=== PATIENT | male | born 1950 | race Caucasian/White ===

== ENCOUNTER 2017-05-18 09:30 | Inpatient (IN) | payer MEDICARE, BC ==
[2017-05-13 13:51] LABS: BASOPHILS # (AUTO) 0.1 X10'3 (0-0.2); BASOPHILS % (AUTO) 0.7 % (0-1); EOSINOPHILS # (AUTO) 0.2 X10'3 (0-0.9); EOSINOPHILS % (AUTO) 2.1 % (0-6); LYMPHOCYTES # (AUTO) 1.8 X10'3 (1.1-4.8); LYMPHOCYTES % (AUTO) 24.9 % (21-51); MEAN CORPUSCULAR HEMOGLOBIN 31.9 PG (27.0-31.0); MEAN CORPUSCULAR HGB CONC 34.8 % (33.0-36.5); MEAN CORPUSCULAR VOLUME 91.6 FL (78-98); MEAN PLATELET VOLUME 7.6 FL (7.4-10.4); MONOCYTES # (AUTO) 0.5 X10'3 (0-0.9); MONOCYTES % (AUTO) 6.3 % (2-12); NEUTROPHILS # (AUTO) 4.8 X10'3 (1.8-7.7); PRE OP HEMOGLOBIN 16.4 g/dL (14.0-17.9); PRE OP PLATELET COUNT 203 X10'3 (140-440); RED BLOOD COUNT 5.14 X10'6 (4.70-6.10); RED CELL DISTRIBUTION WIDTH 12.8 % (11.5-14.5)
[2017-05-13 13:55] LABS: CLARITY,URINE CLEAR (Clear); COLOR,URINE STRAW (Yellow); GLUCOSE, URINE NEGATIVE (Neg); KETONES,URINE NEGATIVE (Neg); LEUKOCYTE ESTERASE ,URINE NEGATIVE (Neg); NITRITES, URINE NEGATIVE (Neg); OCCULT BLOOD,URINE NEGATIVE (Neg); PH,URINE 5.5 (4.8-8.0); PROTEIN,URINE NEGATIVE (Neg); UROBILINOGEN,URINE 0.2 E.U/dL (0.2-1.0)
[2017-05-13 13:56] LABS: UA COLLECTION TYPE NON-SPECIFIED
[2017-05-13 14:04] LABS: ALBUMIN 3.7 G/DL (3.4-5.0); ALKALINE PHOSPHATASE 72 IU/L (46-116); BLOOD UREA NITROGEN 14 MG/DL (7-18); BUN/CREATININE RATIO 13.2 (5.4-32.0); CALCIUM 9.2 MG/DL (8.5-10.1); CHLORIDE 105 MMOL/L (99-107); CREATININE 1.06 MG/DL (0.60-1.10); PRE OP ALT 47 U/L (30-65); PRE OP ANION GAP 6 (8-16); PRE OP AST 22 U/L (10-37); PRE OP BILIRUB, TOTAL 0.3 MG/DL (0.0-1.0); PRE OP GLUCOSE 127 MG/DL (70-104); PRE OP POTASSIUM 4.2 MMOL/L (3.4-5.1); PRE OP SODIUM 140 MMOL/L (135-145); TOTAL CARBON DIOXIDE 29.1 MMOL/L (24-32); TOTAL PROTEIN 7.4 G/DL (6.4-8.2); eGFR 70 ML/MIN
[~2017-05-18] VITALS: Ht 182.9 cm; Wt 128.9 kg
[2017-05-18] VITALS (18 sets, daily range): BP systolic 120–156; BP diastolic 52–87
[~2017-05-18 09:30] MED LIST: BUPR150T8 PO; DOXA4TAB3 PO; FINA5TAB11 PO; FLUT16SP2 BOTHNARES; MELO15TA13 PO; OMEP20TA5 PO; ceFOXitin 2 GM ADDvantage bag 100 ML IV ONE; famotidine 20mg tablet PO ONE; ringers solution, lacted 1,000 ML IV SCH
[2017-05-18] MEDS ORDERED: LIDOcaine 1% (10mg/ml) 2ml vial ONE (11:33)
[2017-05-18] MEDS ORDERED: BUPIVAcaine/PF 2.5 mg/ml (0.25%) 30ml vial ONE (14:36)
[2017-05-18] MEDS ORDERED: ceFAZolin 1000mg inj ONE (14:36)
[2017-05-18] MEDS ORDERED: midazolam 2 mg/2 ml injection ONE (14:40)
[2017-05-18] MEDS ORDERED: fentaNYL/PF 50MCG/1 ML 2ML syringe ONE ×2 (14:40→15:20)
[2017-05-18] MEDS ORDERED: rocuronium 10mg/ml inj IV ONE (14:42)
[2017-05-18] MEDS ORDERED: LIDOcaine 2% (20mg/ml) 5ml vial ONE (14:42)
[2017-05-18] MEDS ORDERED: propofol inj 20 ML IV ONE (14:42)
[2017-05-18] MEDS ORDERED: sevoflurane 250ml liquid IH ONE (15:03)
[2017-05-18] MEDS ORDERED: dexamethasone sod phosphate 4mg/ml inj. ONE (17:03)
[2017-05-18] MEDS ORDERED: neostigmine methylsulfate 1 MG/ML 10ml vial ONE (17:03)
[2017-05-18] MEDS ORDERED: glycopyrrolate 0.2mg/ml inj ONE (17:03)
[2017-05-18] MEDS ORDERED: ondansetron/PF 4mg/2ml inj ONE (17:03)
[2017-05-18] MEDS ORDERED: meperidine/PF 50mg/ml syringe ONE (17:05)
[2017-05-18] MEDS ORDERED: ringers solution, lacted 1,000 ML IV SCH (17:26)
[2017-05-18] MEDS ORDERED: proCHLORperazine 10 MG/2 ml inj IV PRN (17:30)
[2017-05-18] MEDS ORDERED: morphine sulfate 8 MG/ML SYRINGE IV PRN ×2 (17:30)
[2017-05-18] MEDS ORDERED: ondansetron/PF 4mg/2ml inj IV PRN (17:30)
[2017-05-18] MEDS ORDERED: meperidine/PF 25mg/ml syringe IV PRN ×3 (17:30)
[2017-05-18] MEDS ORDERED: CADD PCA waste documentation MC PRN (17:40)
[2017-05-18] MEDS ORDERED: naloxone 0.4 mg/ml inj IV PRN (17:40)
[2017-05-18] MEDS: HYDROmorphone/NS 1 mg/ml CADD 50 ML IV SCH ×4 (18:05→23:00)
[2017-05-18] MEDS: Potassium Cl inj 20 MEQ in ringers solution, lacted 1,000 ML IV SCH (20:30)
[2017-05-19] VITALS: BP 132/71
[2017-05-19] MEDS ORDERED: ceFOXitin 1 GM ADDVANTAGE BAG 1,000 MG in normal saline 100ml IV soln 100 ML IV SCH ×2
[2017-05-19] MEDS: HYDROmorphone/NS 1 mg/ml CADD 50 ML IV SCH ×12 (01:00→23:00)
[2017-05-19] MEDS: Potassium Cl inj 20 MEQ in ringers solution, lacted 1,000 ML IV SCH ×4 (01:44→20:36)
[2017-05-19 04:00] VITALS: BP 119/70
[2017-05-19 06:27] LABS: BASOPHILS % (AUTO) 0 % (0-1); EOSINOPHILS # (AUTO) 0.2 X10'3 (0-0.9); EOSINOPHILS % (AUTO) 1.2 % (0-6); HEMATOCRIT 46.4 % (42.0-52.0); HEMOGLOBIN 15.7 g/dl (14.0-17.9); LYMPHOCYTES # (AUTO) 0.5 X10'3 (1.1-4.8); LYMPHOCYTES % (AUTO) 2.9 % (21-51); MEAN CORPUSCULAR HEMOGLOBIN 32.3 PG (27.0-31.0); MEAN CORPUSCULAR HGB CONC 33.8 % (33.0-36.5); MEAN CORPUSCULAR VOLUME 95.4 FL (78-98); MEAN PLATELET VOLUME 8.2 FL (7.4-10.4); MONOCYTES # (AUTO) 0.6 X10'3 (0-0.9); MONOCYTES % (AUTO) 3.6 % (2-12); NEUTROPHILS # (AUTO) 16.5 X10'3 (1.8-7.7); NEUTROPHILS % (AUTO) 92.3 % (42-75); PLATELET COUNT 185 X10'3 (140-440); RED BLOOD COUNT 4.87 X10'6 (4.70-6.10); RED CELL DISTRIBUTION WIDTH 13.7 % (11.5-14.5); WHITE BLOOD COUNT 17.9 X10'3 (4.5-11.0)
[2017-05-19 06:32] LABS: ANION GAP 8 (8-16); BLOOD UREA NITROGEN 9 MG/DL (7-18); BUN/CREATININE RATIO 8.5 (5.4-32.0); CALCIUM 8.8 MG/DL (8.5-10.1); CHLORIDE 103 MMOL/L (99-107); CREATININE 1.06 MG/DL (0.60-1.10); GLUCOSE 136 MG/DL (70-104); POTASSIUM 4.6 MMOL/L (3.5-5.1); SODIUM 139 MMOL/L (135-145); TOTAL CARBON DIOXIDE 28.1 MMOL/L (24-32); eGFR 70 ML/MIN
[2017-05-19 07:11] VITALS: BP 119/66
[2017-05-19] MEDS: enoxaparin 40mg/0.4ml syringe SQ SCH (08:00)
[2017-05-19] MEDS ORDERED: pantoprazole 40mg Tablet.DR PO ONE (15:20)
[2017-05-19] MEDS ORDERED: benzocaine/menthol oral lozeng 1 EACH BOX MM PRN (15:20)
[2017-05-19] MEDS: finasteride 5mg tablet PO SCH (16:02)
[2017-05-19] MEDS: naproxen 500mg tablet PO SCH (17:51)
[2017-05-19] MEDS ORDERED: Chloraseptic (Phenol) Spray 177ml MM PRN (18:20)
[2017-05-19 20:00] VITALS: BP 112/68
[2017-05-19] MEDS: buPROPion SR 150mg tablet PO SCH (20:35)
[2017-05-20] VITALS: BP 119/70
[2017-05-20] MEDS: HYDROmorphone/NS 1 mg/ml CADD 50 ML IV SCH ×12 (01:00→23:00)
[2017-05-20 05:17] LABS: BASOPHILS % (AUTO) 0.2 % (0-1); EOSINOPHILS # (AUTO) 0.1 X10'3 (0-0.9); EOSINOPHILS % (AUTO) 1.3 % (0-6); HEMATOCRIT 42.8 % (42.0-52.0); HEMOGLOBIN 14.5 g/dl (14.0-17.9); LYMPHOCYTES # (AUTO) 1.7 X10'3 (1.1-4.8); LYMPHOCYTES % (AUTO) 15.2 % (21-51); MEAN CORPUSCULAR HEMOGLOBIN 32.4 PG (27.0-31.0); MEAN CORPUSCULAR HGB CONC 33.9 % (33.0-36.5); MEAN CORPUSCULAR VOLUME 95.7 FL (78-98); MEAN PLATELET VOLUME 8.1 FL (7.4-10.4); MONOCYTES # (AUTO) 0.6 X10'3 (0-0.9); MONOCYTES % (AUTO) 5.2 % (2-12); NEUTROPHILS # (AUTO) 8.8 X10'3 (1.8-7.7); NEUTROPHILS % (AUTO) 78.1 % (42-75); PLATELET COUNT 157 X10'3 (140-440); RED BLOOD COUNT 4.48 X10'6 (4.70-6.10); RED CELL DISTRIBUTION WIDTH 13.4 % (11.5-14.5); WHITE BLOOD COUNT 11.2 X10'3 (4.5-11.0)
[2017-05-20] MEDS: Potassium Cl inj 20 MEQ in ringers solution, lacted 1,000 ML IV SCH ×2 (05:22→13:47)
[2017-05-20 05:30] LABS: ALBUMIN 2.8 G/DL (3.4-5.0); ANION GAP 1 (8-16); BLOOD UREA NITROGEN 10 MG/DL (7-18); BUN/CREATININE RATIO 9.5 (5.4-32.0); CALCIUM 8.8 MG/DL (8.5-10.1); CHLORIDE 102 MMOL/L (99-107); CREATININE 1.05 MG/DL (0.60-1.10); GLUCOSE 94 MG/DL (70-104); POTASSIUM 4.6 MMOL/L (3.5-5.1); SODIUM 138 MMOL/L (135-145); TOTAL CARBON DIOXIDE 35.2 MMOL/L (24-32); eGFR 70 ML/MIN
[2017-05-20 08:00] VITALS: BP 157/75
[2017-05-20] MEDS: enoxaparin 40mg/0.4ml syringe SQ SCH (08:00)
[2017-05-20] MEDS: buPROPion SR 150mg tablet PO SCH ×2 (10:13→20:07)
[2017-05-20] MEDS: pantoprazole 40mg Tablet.DR PO SCH (10:14)
[2017-05-20] MEDS: finasteride 5mg tablet PO SCH (10:15)
[2017-05-20] MEDS: naproxen 500mg tablet PO SCH ×2 (10:15→18:04)
[2017-05-20] MEDS: doxazosin mesylate 2mg tablet PO SCH (10:15)
[2017-05-20] MEDS: fluticasone nasal spray 16GM bottle NS SCH (10:18)
[2017-05-20 12:09] VITALS: BP 141/79
[2017-05-20 20:00] VITALS: BP 125/73
[2017-05-21] VITALS: BP 132/74
[2017-05-21] MEDS: HYDROmorphone/NS 1 mg/ml CADD 50 ML IV SCH ×12 (01:00→23:00)
[2017-05-21] MEDS: Potassium Cl inj 20 MEQ in ringers solution, lacted 1,000 ML IV SCH ×3 (02:14→15:34)
[2017-05-21 05:16] LABS: BASOPHILS % (AUTO) 0.1 % (0-1); EOSINOPHILS # (AUTO) 0.3 X10'3 (0-0.9); EOSINOPHILS % (AUTO) 2.7 % (0-6); HEMOGLOBIN 14.9 g/dl (14.0-17.9); LYMPHOCYTES # (AUTO) 1.2 X10'3 (1.1-4.8); LYMPHOCYTES % (AUTO) 11.9 % (21-51); MEAN CORPUSCULAR HEMOGLOBIN 32.6 PG (27.0-31.0); MEAN CORPUSCULAR VOLUME 96.1 FL (78-98); MEAN PLATELET VOLUME 8.3 FL (7.4-10.4); MONOCYTES # (AUTO) 0.6 X10'3 (0-0.9); MONOCYTES % (AUTO) 5.7 % (2-12); NEUTROPHILS # (AUTO) 7.8 X10'3 (1.8-7.7); NEUTROPHILS % (AUTO) 79.6 % (42-75); PLATELET COUNT 169 X10'3 (140-440); RED BLOOD COUNT 4.58 X10'6 (4.70-6.10); RED CELL DISTRIBUTION WIDTH 13.4 % (11.5-14.5); WHITE BLOOD COUNT 9.8 X10'3 (4.5-11.0)
[2017-05-21 05:43] LABS: CHLORIDE 99 MMOL/L (99-107); GLUCOSE 87 MG/DL (70-104); POTASSIUM 4.2 MMOL/L (3.5-5.1); SODIUM 138 MMOL/L (135-145); TOTAL CARBON DIOXIDE 33.3 MMOL/L (24-32)
[2017-05-21 05:44] LABS: ALBUMIN 3.2 G/DL (3.4-5.0); ANION GAP 6 (8-16); BLOOD UREA NITROGEN 10 MG/DL (7-18); BUN/CREATININE RATIO 10.2 (5.4-32.0); CALCIUM 9.3 MG/DL (8.5-10.1); CREATININE 0.98 MG/DL (0.60-1.10); eGFR 76 ML/MIN
[2017-05-21 07:47] VITALS: BP 145/80
[2017-05-21] MEDS: enoxaparin 40mg/0.4ml syringe SQ SCH (08:00)
[2017-05-21] MEDS: fluticasone nasal spray 16GM bottle NS SCH (08:00)
[2017-05-21] MEDS: buPROPion SR 150mg tablet PO SCH ×2 (08:59→20:00)
[2017-05-21] MEDS: naproxen 500mg tablet PO SCH ×2 (08:59→18:44)
[2017-05-21] MEDS: finasteride 5mg tablet PO SCH (09:00)
[2017-05-21] MEDS: doxazosin mesylate 2mg tablet PO SCH (09:00)
[2017-05-21] MEDS: pantoprazole 40mg Tablet.DR PO SCH (09:00)
[2017-05-21 12:34] VITALS: BP 150/74
[2017-05-21 19:00] VITALS: BP 124/71
[2017-05-22] VITALS: BP 145/76
[2017-05-22] MEDS: HYDROmorphone/NS 1 mg/ml CADD 50 ML IV SCH ×12 (01:00→23:00)
[2017-05-22] MEDS: ondansetron/PF 4mg/2ml inj IV PRN (01:55)
[2017-05-22] MEDS: Potassium Cl inj 20 MEQ in ringers solution, lacted 1,000 ML IV SCH ×3 (01:55→19:33)
[2017-05-22] MEDS: fluticasone nasal spray 16GM bottle NS SCH (07:53)
[2017-05-22] MEDS: pantoprazole 40mg Tablet.DR PO SCH (07:53)
[2017-05-22] MEDS: doxazosin mesylate 2mg tablet PO SCH (07:54)
[2017-05-22] MEDS: finasteride 5mg tablet PO SCH (07:54)
[2017-05-22] MEDS: naproxen 500mg tablet PO SCH ×2 (07:54→17:43)
[2017-05-22] MEDS: buPROPion SR 150mg tablet PO SCH ×2 (07:54→20:18)
[2017-05-22] MEDS: enoxaparin 40mg/0.4ml syringe SQ SCH (07:56)
[2017-05-22 08:10] VITALS: BP 141/77
[2017-05-22 08:24] LABS: BASOPHILS % (AUTO) 0 % (0-1); EOSINOPHILS # (AUTO) 0.1 X10'3 (0-0.9); EOSINOPHILS % (AUTO) 0.9 % (0-6); HEMATOCRIT 43.4 % (42.0-52.0); HEMOGLOBIN 15.2 g/dl (14.0-17.9); LYMPHOCYTES # (AUTO) 0.4 X10'3 (1.1-4.8); LYMPHOCYTES % (AUTO) 3.2 % (21-51); MEAN CORPUSCULAR HEMOGLOBIN 33.4 PG (27.0-31.0); MEAN CORPUSCULAR VOLUME 95.4 FL (78-98); MEAN PLATELET VOLUME 8.1 FL (7.4-10.4); MONOCYTES # (AUTO) 0.4 X10'3 (0-0.9); MONOCYTES % (AUTO) 2.9 % (2-12); NEUTROPHILS # (AUTO) 12.9 X10'3 (1.8-7.7); PLATELET COUNT 159 X10'3 (140-440); RED BLOOD COUNT 4.55 X10'6 (4.70-6.10); RED CELL DISTRIBUTION WIDTH 12.9 % (11.5-14.5); WHITE BLOOD COUNT 13.9 X10'3 (4.5-11.0)
[2017-05-22 08:29] LABS: ALANINE AMINOTRANSFERASE 20 U/L (12-78); ALBUMIN 2.6 G/DL (3.4-5.0); ALBUMIN/GLOBULIN RATIO 0.7 (1.1-1.5); ALKALINE PHOSPHATASE 55 IU/L (46-116); ANION GAP 11 (8-16); ASPARTATE AMINO TRANSFERASE 22 U/L (10-37); BILIRUBIN,TOTAL 1.3 MG/DL (0.1-1.0); BLOOD UREA NITROGEN 11 MG/DL (7-18); BUN/CREATININE RATIO 13.6 (5.4-32.0); CALCIUM 8.8 MG/DL (8.5-10.1); CHLORIDE 97 MMOL/L (99-107); CREATININE 0.81 MG/DL (0.60-1.10); GLUCOSE 106 MG/DL (70-104); SODIUM 134 MMOL/L (135-145); TOTAL CARBON DIOXIDE 25.6 MMOL/L (24-32); TOTAL PROTEIN 6.5 G/DL (6.4-8.2); eGFR > 90 ML/MIN
[2017-05-22 11:00] VITALS: BP 134/79
[2017-05-22 18:50] VITALS: BP 143/74
[2017-05-23] VITALS: BP 142/67
[2017-05-23] MEDS: HYDROmorphone/NS 1 mg/ml CADD 50 ML IV SCH ×12 (00:55→23:00)
[2017-05-23] MEDS: Potassium Cl inj 20 MEQ in ringers solution, lacted 1,000 ML IV SCH ×3 (02:44→21:24)
[2017-05-23 06:59] LABS: BASOPHILS % (AUTO) 0 % (0-1); EOSINOPHILS % (AUTO) 0 % (0-6); HEMATOCRIT 39.7 % (42.0-52.0); HEMOGLOBIN 13.5 g/dl (14.0-17.9); LYMPHOCYTES # (AUTO) 0.3 X10'3 (1.1-4.8); LYMPHOCYTES % (AUTO) 2.3 % (21-51); MEAN CORPUSCULAR HEMOGLOBIN 32.7 PG (27.0-31.0); MEAN CORPUSCULAR VOLUME 96.1 FL (78-98); MEAN PLATELET VOLUME 7.5 FL (7.4-10.4); MONOCYTES # (AUTO) 0.7 X10'3 (0-0.9); MONOCYTES % (AUTO) 4.5 % (2-12); NEUTROPHILS # (AUTO) 13.6 X10'3 (1.8-7.7); NEUTROPHILS % (AUTO) 93.2 % (42-75); PLATELET COUNT 166 X10'3 (140-440); RED BLOOD COUNT 4.13 X10'6 (4.70-6.10); RED CELL DISTRIBUTION WIDTH 13.1 % (11.5-14.5); WHITE BLOOD COUNT 14.6 X10'3 (4.5-11.0)
[2017-05-23 07:00] VITALS: BP 138/71
[2017-05-23 07:09] LABS: ALBUMIN 2.3 G/DL (3.4-5.0); ANION GAP 8 (8-16); BLOOD UREA NITROGEN 13 MG/DL (7-18); BUN/CREATININE RATIO 15.7 (5.4-32.0); CALCIUM 8.7 MG/DL (8.5-10.1); CHLORIDE 101 MMOL/L (99-107); CREATININE 0.83 MG/DL (0.60-1.10); GLUCOSE 108 MG/DL (70-104); POTASSIUM 4.3 MMOL/L (3.5-5.1); SODIUM 138 MMOL/L (135-145); TOTAL CARBON DIOXIDE 29.4 MMOL/L (24-32); eGFR > 90 ML/MIN
[2017-05-23] MEDS: fluticasone nasal spray 16GM bottle NS SCH (07:41)
[2017-05-23] MEDS: buPROPion SR 150mg tablet PO SCH ×2 (07:42→20:00)
[2017-05-23] MEDS: doxazosin mesylate 2mg tablet PO SCH (07:42)
[2017-05-23] MEDS: naproxen 500mg tablet PO SCH ×2 (07:43→17:20)
[2017-05-23] MEDS: pantoprazole 40mg Tablet.DR PO SCH (07:43)
[2017-05-23] MEDS: enoxaparin 40mg/0.4ml syringe SQ SCH (07:44)
[2017-05-23] MEDS: finasteride 5mg tablet PO SCH (07:46)
[2017-05-23] MEDS: ondansetron/PF 4mg/2ml inj IV PRN (07:46)
[2017-05-23 11:00] VITALS: BP 125/71
[2017-05-23 18:40] VITALS: BP 143/66
[2017-05-24] VITALS (28 sets, daily range): BP systolic 72–114; BP diastolic 48–83
[2017-05-24] MEDS ORDERED: normal saline 1000ml 1,000 ML IVB ONE (00:39)
[2017-05-24] MEDS: HYDROmorphone/NS 1 mg/ml CADD 50 ML IV SCH ×6 (01:00→13:00)
[2017-05-24] MEDS ORDERED: ipratropium 0.5 MG/2.5ML nebule IH PRN ×2 (01:35→02:45)
[2017-05-24] MEDS ORDERED: ipratropium 0.5 MG/2.5ML nebule IH ONE (01:35)
[2017-05-24 01:46] LABS: ABG BASE EXCESS -1.5 mmol/L (-2.0-3.0); ABG HCO3 24.4 mmol/L (22.0-26.0); ABG OXYGEN SATURATION 90.6 % (95-98); ABG PCO2 (T) 45.5 mmHg (35.0-48.0); ABG PH (T) 7.347 (7.350-7.450); ABG PO2 (T) 64.1 mmHg (83-108); ALLEN'S TEST Positive; FCOHb 0.8 % (0.5-1.5); FLOW 4 L/min; FMetHb 0.2 % (0.3-1.12); FO2Hb 89.7 % (94-100); PATIENT TEMPERATURE 36.9; RESPIRATORY RATE (OBSERVED) 24 b/min; TOTAL HEMOGLOBIN 15.6 G/dl (14.0-18.0)
[2017-05-24 01:58] LABS: BASOPHILS % (AUTO) 0.3 % (0-1); EOSINOPHILS % (AUTO) 0.2 % (0-6); HEMATOCRIT 46.6 % (42.0-52.0); HEMOGLOBIN 15.7 g/dl (14.0-17.9); LYMPHOCYTES # (AUTO) 0.2 X10'3 (1.1-4.8); LYMPHOCYTES % (AUTO) 4.4 % (21-51); MEAN CORPUSCULAR HEMOGLOBIN 32.2 PG (27.0-31.0); MEAN CORPUSCULAR HGB CONC 33.6 % (33.0-36.5); MEAN CORPUSCULAR VOLUME 95.7 FL (78-98); MEAN PLATELET VOLUME 7.9 FL (7.4-10.4); MONOCYTES # (AUTO) 0.4 X10'3 (0-0.9); NEUTROPHILS # (AUTO) 4.7 X10'3 (1.8-7.7); NEUTROPHILS % (AUTO) 88.1 % (42-75); PLATELET COUNT 193 X10'3 (140-440); RED BLOOD COUNT 4.87 X10'6 (4.70-6.10); RED CELL DISTRIBUTION WIDTH 12.9 % (11.5-14.5); WHITE BLOOD COUNT 5.3 X10'3 (4.5-11.0)
[2017-05-24 02:02] LABS: PARTIAL THROMBOPLASTIN TIME 28 SECONDS (22-32); PROTHROMBIN TIME 10.8 SECONDS (9.0-12.0)
[2017-05-24 02:14] LABS: ALANINE AMINOTRANSFERASE 22 U/L (12-78); ALBUMIN 2.2 G/DL (3.4-5.0); ALBUMIN/GLOBULIN RATIO 0.5 (1.1-1.5); ALKALINE PHOSPHATASE 79 IU/L (46-116); ANION GAP 8 (8-16); ASPARTATE AMINO TRANSFERASE 19 U/L (10-37); BILIRUBIN,TOTAL 1.9 MG/DL (0.1-1.0); BLOOD UREA NITROGEN 19 MG/DL (7-18); BUN/CREATININE RATIO 11.1 (5.4-32.0); CHLORIDE 103 MMOL/L (99-107); CREATININE 1.71 MG/DL (0.60-1.10); GLUCOSE 90 MG/DL (70-104); MAGNESIUM 1.7 MG/DL (1.5-2.4); POTASSIUM 5.3 MMOL/L (3.5-5.1); SODIUM 141 MMOL/L (135-145); TOTAL CARBON DIOXIDE 30.5 MMOL/L (24-32); TOTAL PROTEIN 6.3 G/DL (6.4-8.2); eGFR 40 ML/MIN
[2017-05-24 02:21] LABS: OXYGEN SATURATION (MIXED VEN) 64.3 % (60-80); PO2 MIXED VENOUS (TEMP COR) 36.5 mmHg (35-46)
[2017-05-24] MEDS: Potassium Cl inj 20 MEQ in ringers solution, lacted 1,000 ML IV SCH ×2 (02:59→11:04)
[2017-05-24] MEDS ORDERED: diatr meglu/diatrizoate 30ml oral sol.-(3 dose) bottle PO SCH ×2 (03:00)
[2017-05-24] MEDS ORDERED: piperacillin/tazo 3.375gm/50ml 50 ML IV SCH (03:20)
[2017-05-24] MEDS: metroNIDAZOLE-Flagyl 500mg/NS 100 ML IV SCH ×3 (03:20→19:21)
[2017-05-24 04:08] LABS: BASOPHILS % (AUTO) 0 % (0-1); EOSINOPHILS % (AUTO) 0.2 % (0-6); HEMATOCRIT 42.6 % (42.0-52.0); HEMOGLOBIN 14.5 g/dl (14.0-17.9); LYMPHOCYTES # (AUTO) 0.3 X10'3 (1.1-4.8); LYMPHOCYTES % (AUTO) 4.3 % (21-51); MEAN CORPUSCULAR HEMOGLOBIN 32.6 PG (27.0-31.0); MEAN CORPUSCULAR VOLUME 96.1 FL (78-98); MEAN PLATELET VOLUME 7.7 FL (7.4-10.4); MONOCYTES # (AUTO) 0.5 X10'3 (0-0.9); MONOCYTES % (AUTO) 6.5 % (2-12); NEUTROPHILS # (AUTO) 6.3 X10'3 (1.8-7.7); PLATELET COUNT 170 X10'3 (140-440); RED BLOOD COUNT 4.44 X10'6 (4.70-6.10); RED CELL DISTRIBUTION WIDTH 13.4 % (11.5-14.5); WHITE BLOOD COUNT 7.1 X10'3 (4.5-11.0)
[2017-05-24 04:32] LABS: PLATELET ESTIMATE NORMAL; TOTAL CELLS COUNTED 100
[2017-05-24 04:41] LABS: PO2 MIXED VENOUS (TEMP COR) 40.1 mmHg (35-46)
[2017-05-24] MEDS ORDERED: ringers solution, lacted 1,000 ML IV SCH (06:38)
[2017-05-24] MEDS ORDERED: morphine sulfate 8 MG/ML SYRINGE IV PRN ×2 (06:40)
[2017-05-24] MEDS ORDERED: proCHLORperazine 10 MG/2 ml inj IV PRN (06:40)
[2017-05-24] MEDS ORDERED: meperidine/PF 25mg/ml syringe IV PRN ×3 (06:40)
[2017-05-24] MEDS ORDERED: ondansetron/PF 4mg/2ml inj IV PRN (06:40)
[2017-05-24] MEDS ORDERED: BUPIVAcaine/PF 2.5 mg/ml (0.25%) 30ml vial ONE (06:43)
[2017-05-24] MEDS ORDERED: ceFAZolin 1000mg inj ONE (06:43)
[2017-05-24] MEDS ORDERED: LIDOcaine 1% (10mg/ml) 2ml vial ONE (06:56)
[2017-05-24] MEDS: naproxen 500mg tablet PO SCH (07:18)
[2017-05-24] MEDS: pantoprazole 40mg Tablet.DR PO SCH (07:18)
[2017-05-24] MEDS ORDERED: furosemide 20 MG/2 ML vial ONE (07:22)
[2017-05-24] MEDS ORDERED: desflurane 240ml liquid inh. IH ONE (07:22)
[2017-05-24] MEDS ORDERED: fentaNYL/PF 50MCG/1 ML 2ML syringe ONE (07:38)
[2017-05-24] MEDS ORDERED: etomidate 2mg/ml inj. ONE (07:38)
[2017-05-24] MEDS ORDERED: midazolam 2 mg/2 ml injection ONE (07:38)
[2017-05-24] MEDS ORDERED: LIDOcaine 1%/PF (10mg/ml) 5ml vial ONE (07:38)
[2017-05-24] MEDS ORDERED: rocuronium 10mg/ml inj IV ONE (07:39)
[2017-05-24] MEDS: finasteride 5mg tablet PO SCH (08:00)
[2017-05-24] MEDS: doxazosin mesylate 2mg tablet PO SCH (08:00)
[2017-05-24] MEDS: buPROPion SR 150mg tablet PO SCH (08:00)
[2017-05-24] MEDS: enoxaparin 40mg/0.4ml syringe SQ SCH (08:00)
[2017-05-24] MEDS: fluticasone nasal spray 16GM bottle NS SCH (08:00)
[2017-05-24] MEDS ORDERED: DOBUTamine/D5W 500mg/250ml premix IV ONE (08:21)
[2017-05-24] MEDS ORDERED: pancuronium br 1mg/ml inj IV ONE (08:32)
[2017-05-24] MEDS ORDERED: levoFLOXACIN-Levaquin 750MG/D5 150 ML IV ONE (08:53)
[2017-05-24] MEDS ORDERED: albumin (Human) 5% 250ml 250 ML IV ONE (09:06)
[2017-05-24 11:10] LABS: ABG BASE EXCESS -4.6 mmol/L (-2.0-3.0); ABG HCO3 20.4 mmol/L (22.0-26.0); ABG OXYGEN SATURATION 95.6 % (95-98); ABG PCO2 (T) 36.2 mmHg (35.0-48.0); ABG PH (T) 7.365 (7.350-7.450); ABG PO2 (T) 76.8 mmHg (83-108); FCOHb 0.5 % (0.5-1.5); FMetHb 0.2 % (0.3-1.12); FO2Hb 94.9 % (94-100); PATIENT TEMPERATURE 36.1; PEEP 5 cm H2O; RESPIRATORY RATE 16 b/min; TIDAL VOLUME 600 mL; TOTAL HEMOGLOBIN 13.6 G/dl (14.0-18.0)
[2017-05-24] MEDS ORDERED: albumin (human) 25% 100 ML IV solution IV PRN ×2 (11:30→16:00)
[2017-05-24] MEDS ORDERED: midazolam 100mg in NS 100ml 100 ML IV PRN (13:32)
[2017-05-24] MEDS: mineral oil/petrolatum ophthal oint EACHEYE SCH ×2 (14:25→19:23)
[2017-05-24] MEDS ORDERED: Dextrose 10%-water IV solution 1,000 ML IV PRN (15:14)
[2017-05-24] MEDS ORDERED: fat emulsion IV 181.82 ML, MVI, adult No.4 with vit. K 4.55 ML, Trace element-5 inj. 0.... IV SCH ×4 (15:14)
[2017-05-24 15:56] LABS: OXYGEN SATURATION (MIXED VEN) 74.3 % (60-80); PO2 MIXED VENOUS (TEMP COR) 39.3 mmHg (35-46)
[2017-05-24] MEDS ORDERED: fat emulsion IV 100 ML, MVI, adult No.4 with vit. K 5 ML, Trace element-5 inj. 0.5 ML i... IV SCH ×4 (16:10)
[2017-05-24] MEDS: fentaNYL/PF 50MCG/1 ML 2ML syringe IV PRN ×3 (16:21→20:01)
[2017-05-24] MEDS: NORepinephrine 8mg/ 250ml NS 250 ML IV SCH (16:44)
[2017-05-24] MEDS ORDERED: lactobacillus rhamnosus 10,000 MMU CELLS/CAPSULE PO SCH (17:30)
[2017-05-24] MEDS: albumin (human) 25% 100 ML IV solution IV PRN (19:09)
[2017-05-24] MEDS: fat emulsion IV 100 ML, MVI, adult No.4 with vit. K 5 ML, Trace element-5 inj. 0.5 ML i... IV SCH ×4 (19:22)
[2017-05-24] MEDS: ipratropium/albuterol 3ml nebule NEB SCH ×2 (19:39→23:03)
[2017-05-25] VITALS (24 sets, daily range): BP systolic 90–138; BP diastolic 50–68
[2017-05-25] MEDS: fentaNYL/PF 50MCG/1 ML 2ML syringe IV PRN ×2 (02:18→08:52)
[2017-05-25] MEDS: mineral oil/petrolatum ophthal oint EACHEYE SCH ×4 (02:18→20:24)
[2017-05-25] MEDS: ipratropium/albuterol 3ml nebule NEB SCH ×6 (02:59→23:10)
[2017-05-25] MEDS: albumin (human) 25% 100 ML IV solution IV PRN (03:23)
[2017-05-25 04:29] LABS: ALANINE AMINOTRANSFERASE 14 U/L (12-78); ALBUMIN/GLOBULIN RATIO 0.7 (1.1-1.5); ALKALINE PHOSPHATASE 37 IU/L (46-116); ANION GAP 6 (8-16); ASPARTATE AMINO TRANSFERASE 32 U/L (10-37); BILIRUBIN,TOTAL 3.3 MG/DL (0.1-1.0); BLOOD UREA NITROGEN 34 MG/DL (7-18); BUN/CREATININE RATIO 17.3 (5.4-32.0); CALCIUM 8.1 MG/DL (8.5-10.1); CHLORIDE 108 MMOL/L (99-107); CREATININE 1.97 MG/DL (0.60-1.10); GLUCOSE 149 MG/DL (70-104); MAGNESIUM 1.7 MG/DL (1.5-2.4); POTASSIUM 4.8 MMOL/L (3.5-5.1); SODIUM 142 MMOL/L (135-145); TOTAL CARBON DIOXIDE 27.8 MMOL/L (24-32); TOTAL PROTEIN 4.8 G/DL (6.4-8.2); TRIGLYCERIDES 62 MG/DL (20-135); eGFR 34 ML/MIN
[2017-05-25 04:44] LABS: BASOPHILS % (AUTO) 0 % (0-1); EOSINOPHILS % (AUTO) 0.1 % (0-6); HEMATOCRIT 38.2 % (42.0-52.0); HEMOGLOBIN 12.9 g/dl (14.0-17.9); LYMPHOCYTES # (AUTO) 0.5 X10'3 (1.1-4.8); LYMPHOCYTES % (AUTO) 3.3 % (21-51); MEAN CORPUSCULAR HEMOGLOBIN 32.8 PG (27.0-31.0); MEAN CORPUSCULAR HGB CONC 33.8 % (33.0-36.5); MEAN CORPUSCULAR VOLUME 97.2 FL (78-98); MEAN PLATELET VOLUME 8.4 FL (7.4-10.4); MONOCYTES # (AUTO) 0.6 X10'3 (0-0.9); NEUTROPHILS # (AUTO) 12.9 X10'3 (1.8-7.7); NEUTROPHILS % (AUTO) 92.6 % (42-75); PLATELET COUNT 172 X10'3 (140-440); RED BLOOD COUNT 3.93 X10'6 (4.70-6.10); RED CELL DISTRIBUTION WIDTH 14.1 % (11.5-14.5)
[2017-05-25 04:46] LABS: ABG BASE EXCESS 0.1 mmol/L (-2.0-3.0); ABG OXYGEN SATURATION 97.3 % (95-98); ABG PCO2 (T) 36.9 mmHg (35.0-48.0); ABG PH (T) 7.433 (7.350-7.450); ABG PO2 (T) 99.9 mmHg (83-108); FMetHb 0.2 % (0.3-1.12); FO2Hb 97.1 % (94-100); MINUTE VOLUME 12 L/min; PATIENT TEMPERATURE 37.3; PEEP 5 cm H2O; RESPIRATORY RATE 16 b/min; RESPIRATORY RATE (OBSERVED) 18 b/min; TIDAL VOLUME 600 mL; TOTAL HEMOGLOBIN 13.1 G/dl (14.0-18.0)
[2017-05-25 05:31] LABS: BANDS% (MANUAL) 33 % (0-10); LYMPHOCYTES % (MANUAL) 1 % (21-51); METAMYLEOCYTES% (MANUAL) 3 % (0-0); MONOCYTES % (MANUAL) 3 % (2-12); NEUTROPHILS % (MANUAL) 60 % (42-75); TOTAL CELLS COUNTED 100
[2017-05-25 05:32] LABS: PLATELET ESTIMATE NORMAL; TOXIC GRANULATION 1+; TOXIC VACUOLATION 1+
[2017-05-25] MEDS: NORepinephrine 8mg/ 250ml NS 250 ML IV SCH (05:42)
[2017-05-25] MEDS: pantoprazole 40mg Tablet.DR PO SCH (07:17)
[2017-05-25] MEDS: levoFLOXACIN-Levaquin 500mg/D5 100 ML IV SCH (07:18)
[2017-05-25] MEDS: doxazosin mesylate 2mg tablet PO SCH (07:22)
[2017-05-25] MEDS: finasteride 5mg tablet PO SCH (07:22)
[2017-05-25 08:11] LABS: OXYGEN SATURATION (MIXED VEN) 70.6 % (60-80); PO2 MIXED VENOUS (TEMP COR) 37.2 mmHg (35-46)
[2017-05-25] MEDS: metroNIDAZOLE-Flagyl 500mg/NS 100 ML IV SCH ×2 (08:26→20:24)
[2017-05-25] MEDS ORDERED: fentaNYL in normal saline/PF 1,000mcg/100ml bag IV PRN (11:45)
[2017-05-25 12:13] LABS: TROPONIN I < 0.04 NG/ML (0.0-0.05)
[2017-05-25] MEDS: enoxaparin 40mg/0.4ml syringe SUBCUT SCH (13:03)
[2017-05-25] MEDS: fat emulsion IV 100 ML, MVI, adult No.4 with vit. K 5 ML, Trace element-5 inj. 0.5 ML i... IV SCH ×4 (16:42)
[2017-05-25] MEDS: lactobacillus rhamnosus 10,000 MMU CELLS/CAPSULE PO SCH (17:23)
[2017-05-26] VITALS (24 sets, daily range): BP systolic 99–137; BP diastolic 43–69
[2017-05-26] MEDS ORDERED: fentaNYL in normal saline/PF 1,000mcg/100ml bag IV PRN (02:10)
[2017-05-26] MEDS: mineral oil/petrolatum ophthal oint EACHEYE SCH ×4 (02:19→20:00)
[2017-05-26] MEDS: fat emulsion IV 100 ML, MVI, adult No.4 with vit. K 5 ML, Trace element-5 inj. 0.5 ML i... IV SCH ×8 (02:20→13:32)
[2017-05-26] MEDS: NORepinephrine 8mg/ 250ml NS 250 ML IV SCH (02:26)
[2017-05-26] MEDS ORDERED: dextrose 50%-water 50ml dispensing syringe IV PRN ×2 (02:35)
[2017-05-26] MEDS ORDERED: dextrose ORAL solution 15 GM/59 ML bottle PO PRN ×2 (02:35)
[2017-05-26] MEDS ORDERED: glucagon, human recombinant 1mg kit SUBCUT PRN (02:35)
[2017-05-26 02:44] LABS: BASOPHILS # (AUTO) 0.1 X10'3 (0-0.2); BASOPHILS % (AUTO) 0.5 % (0-1); EOSINOPHILS # (AUTO) 0.1 X10'3 (0-0.9); EOSINOPHILS % (AUTO) 0.7 % (0-6); HEMATOCRIT 36.2 % (42.0-52.0); LYMPHOCYTES # (AUTO) 0.5 X10'3 (1.1-4.8); LYMPHOCYTES % (AUTO) 3.5 % (21-51); MEAN CORPUSCULAR HEMOGLOBIN 32.4 PG (27.0-31.0); MEAN CORPUSCULAR HGB CONC 33.2 % (33.0-36.5); MEAN CORPUSCULAR VOLUME 97.4 FL (78-98); MEAN PLATELET VOLUME 7.8 FL (7.4-10.4); MONOCYTES # (AUTO) 0.3 X10'3 (0-0.9); MONOCYTES % (AUTO) 2.1 % (2-12); NEUTROPHILS # (AUTO) 12.1 X10'3 (1.8-7.7); NEUTROPHILS % (AUTO) 93.2 % (42-75); PLATELET COUNT 157 X10'3 (140-440); RED BLOOD COUNT 3.72 X10'6 (4.70-6.10); RED CELL DISTRIBUTION WIDTH 14.2 % (11.5-14.5); WHITE BLOOD COUNT 12.9 X10'3 (4.5-11.0)
[2017-05-26] MEDS: [UNRECOGNIZED DRUG - OTHER] IV PRN ×3 (02:56→11:44)
[2017-05-26] MEDS: insulin regular, human vial - multi-dose SQ SCH ×4 (02:58→20:32)
[2017-05-26 02:59] LABS: ALANINE AMINOTRANSFERASE 18 U/L (12-78); ALBUMIN 1.8 G/DL (3.4-5.0); ALBUMIN/GLOBULIN RATIO 0.6 (1.1-1.5); ALKALINE PHOSPHATASE 50 IU/L (46-116); ANION GAP 6 (8-16); ASPARTATE AMINO TRANSFERASE 43 U/L (10-37); BILIRUBIN,TOTAL 2.4 MG/DL (0.1-1.0); BLOOD UREA NITROGEN 27 MG/DL (7-18); BUN/CREATININE RATIO 20.6 (5.4-32.0); CHLORIDE 109 MMOL/L (99-107); CREATININE 1.31 MG/DL (0.60-1.10); GLUCOSE 195 MG/DL (70-104); MAGNESIUM 1.8 MG/DL (1.5-2.4); PHOSPHORUS 1.8 MG/DL (2.3-4.5); POTASSIUM 3.8 MMOL/L (3.5-5.1); PREALBUMIN 6.8 MG/DL (19-36); SODIUM 143 MMOL/L (135-145); TOTAL CARBON DIOXIDE 27.7 MMOL/L (24-32); TOTAL PROTEIN 4.6 G/DL (6.4-8.2); TRIGLYCERIDES 68 MG/DL (20-135); eGFR 55 ML/MIN
[2017-05-26 03:08] LABS: PLATELET ESTIMATE NORMAL; TOTAL CELLS COUNTED 100; TOXIC GRANULATION 1+; TOXIC VACUOLATION 1+
[2017-05-26] MEDS: ipratropium/albuterol 3ml nebule NEB SCH ×6 (03:33→23:18)
[2017-05-26 03:51] LABS: ABG BASE EXCESS -1.4 mmol/L (-2.0-3.0); ABG OXYGEN SATURATION 94.5 % (95-98); ABG PCO2 (T) 36.1 mmHg (35.0-48.0); ABG PH (T) 7.418 (7.350-7.450); ABG PO2 (T) 71.4 mmHg (83-108); FCOHb 0.3 % (0.5-1.5); FMetHb 0.2 % (0.3-1.12); MINUTE VOLUME 10 L/min; PEEP 5 cm H2O; RESPIRATORY RATE (OBSERVED) 18 b/min; TOTAL HEMOGLOBIN 12.7 G/dl (14.0-18.0)
[2017-05-26] MEDS: finasteride 5mg tablet PO SCH (08:00)
[2017-05-26] MEDS: levoFLOXACIN-Levaquin 500mg/D5 100 ML IV SCH (08:37)
[2017-05-26] MEDS: metroNIDAZOLE-Flagyl 500mg/NS 100 ML IV SCH ×2 (08:37→20:34)
[2017-05-26] MEDS: doxazosin mesylate 2mg tablet PO SCH (08:38)
[2017-05-26] MEDS: pantoprazole 40mg Tablet.DR PO SCH (08:38)
[2017-05-26] MEDS: lactobacillus rhamnosus 10,000 MMU CELLS/CAPSULE PO SCH ×2 (08:38→16:55)
[2017-05-26] MEDS: enoxaparin 40mg/0.4ml syringe SUBCUT SCH (08:39)
[2017-05-26] MEDS ORDERED: sodium phosphate inj. 30 MMOL in dextrose 5%-water 250 ML IV PRN (11:47)
[2017-05-26] MEDS ORDERED: morphine 5 MG/ML injection IV PRN (15:50)
[2017-05-26] MEDS: sodium phosphate inj. 15 MMOL in dextrose 5%-water 150 ML IV PRN (16:03)
[2017-05-26] MEDS ORDERED: morphine sulfate 8 MG/ML SYRINGE IV PRN (16:47)
[2017-05-26] MEDS ORDERED: racepinephrine 11.25mg/0.5ml nebule ONE (19:22)
[2017-05-26] MEDS ORDERED: racepinephrine 11.25mg/0.5ml nebule IH ONE (19:30)
[2017-05-26 20:04] LABS: BASOPHILS % (AUTO) 0.1 % (0-1); EOSINOPHILS # (AUTO) 0.1 X10'3 (0-0.9); EOSINOPHILS % (AUTO) 0.6 % (0-6); HEMOGLOBIN 13.4 g/dl (14.0-17.9); LYMPHOCYTES # (AUTO) 0.5 X10'3 (1.1-4.8); LYMPHOCYTES % (AUTO) 2.7 % (21-51); MEAN CORPUSCULAR HEMOGLOBIN 32.2 PG (27.0-31.0); MEAN CORPUSCULAR HGB CONC 33.4 % (33.0-36.5); MEAN CORPUSCULAR VOLUME 96.5 FL (78-98); MEAN PLATELET VOLUME 7.7 FL (7.4-10.4); MONOCYTES # (AUTO) 0.1 X10'3 (0-0.9); MONOCYTES % (AUTO) 0.7 % (2-12); NEUTROPHILS % (AUTO) 95.9 % (42-75); PLATELET COUNT 144 X10'3 (140-440); RED BLOOD COUNT 4.15 X10'6 (4.70-6.10); RED CELL DISTRIBUTION WIDTH 14.5 % (11.5-14.5); WHITE BLOOD COUNT 16.6 X10'3 (4.5-11.0)
[2017-05-26 20:19] LABS: ALANINE AMINOTRANSFERASE 23 U/L (12-78); ALBUMIN 1.7 G/DL (3.4-5.0); ALBUMIN/GLOBULIN RATIO 0.5 (1.1-1.5); ALKALINE PHOSPHATASE 66 IU/L (46-116); ANION GAP 9 (8-16); ASPARTATE AMINO TRANSFERASE 52 U/L (10-37); BILIRUBIN,TOTAL 3.8 MG/DL (0.1-1.0); BLOOD UREA NITROGEN 24 MG/DL (7-18); BUN/CREATININE RATIO 19.4 (5.4-32.0); CHLORIDE 107 MMOL/L (99-107); CREATININE 1.24 MG/DL (0.60-1.10); GLUCOSE 155 MG/DL (70-104); POTASSIUM 3.5 MMOL/L (3.5-5.1); SODIUM 143 MMOL/L (135-145); TOTAL CARBON DIOXIDE 27.4 MMOL/L (24-32); eGFR 58 ML/MIN
[2017-05-26 20:23] LABS: MAGNESIUM 1.7 MG/DL (1.5-2.4); TROPONIN I < 0.04 NG/ML (0.0-0.05)
[2017-05-26] MEDS: Insulin Detemir pen SQ SCH (20:33)
[2017-05-26 20:36] LABS: CALCIUM 8.2 MG/DL (8.5-10.1)
[2017-05-26 20:41] LABS: ABG BASE EXCESS -0.1 mmol/L (-2.0-3.0); ABG HCO3 23.5 mmol/L (22.0-26.0); ABG OXYGEN SATURATION 97.4 % (95-98); ABG PCO2 (T) 37.5 mmHg (35.0-48.0); ABG PH (T) 7.421 (7.350-7.450); ABG PO2 (T) 100.8 mmHg (83-108); FCOHb 0.2 % (0.5-1.5); FMetHb 0.2 % (0.3-1.12); MINUTE VOLUME 23 L/min; PATIENT TEMPERATURE 38.5; RESPIRATORY RATE 14 b/min; RESPIRATORY RATE (OBSERVED) 28 b/min; TOTAL HEMOGLOBIN 13.7 G/dl (14.0-18.0)
[2017-05-26 20:52] LABS: PLATELET ESTIMATE NORMAL; TOTAL CELLS COUNTED 100; TOXIC GRANULATION 2+; TOXIC VACUOLATION 1+
[2017-05-27] VITALS (29 sets, daily range): BP systolic 86–169; BP diastolic 41–74
[2017-05-27] MEDS: insulin regular, human vial - multi-dose SQ SCH ×4 (01:56→21:02)
[2017-05-27] MEDS: mineral oil/petrolatum ophthal oint EACHEYE SCH ×4 (02:00→20:00)
[2017-05-27] MEDS: morphine sulfate 8 MG/ML SYRINGE IV PRN ×3 (03:55→23:19)
[2017-05-27] MEDS: ipratropium/albuterol 3ml nebule NEB SCH ×6 (04:04→23:29)
[2017-05-27] MEDS ORDERED: LORazepam 2 mg/ml vial IV ONE (04:10)
[2017-05-27] MEDS: doxazosin mesylate 2mg tablet PO SCH (06:49)
[2017-05-27] MEDS: lactobacillus rhamnosus 10,000 MMU CELLS/CAPSULE PO SCH ×2 (06:56→15:45)
[2017-05-27] MEDS: finasteride 5mg tablet PO SCH (06:56)
[2017-05-27 07:26] LABS: ABG BASE EXCESS 1.5 mmol/L (-2.0-3.0); ABG HCO3 25.9 mmol/L (22.0-26.0); ABG PCO2 (T) 42.6 mmHg (35.0-48.0); ABG PH (T) 7.408 (7.350-7.450); ABG PO2 (T) 89.8 mmHg (83-108); FCOHb 0.2 % (0.5-1.5); FMetHb 0.2 % (0.3-1.12); FO2Hb 95.6 % (94-100); PATIENT TEMPERATURE 38.5; RESPIRATORY RATE 14 b/min; TOTAL HEMOGLOBIN 13.4 G/dl (14.0-18.0)
[2017-05-27] MEDS: pantoprazole 40mg Tablet.DR PO SCH (07:30)
[2017-05-27] MEDS: acetaminophen 650mg rectal suppository RC PRN ×2 (07:42→21:09)
[2017-05-27] MEDS: metroNIDAZOLE-Flagyl 500mg/NS 100 ML IV SCH ×2 (07:42→21:56)
[2017-05-27] MEDS: levoFLOXACIN-Levaquin 500mg/D5 100 ML IV SCH (07:42)
[2017-05-27] MEDS: enoxaparin 40mg/0.4ml syringe SUBCUT SCH (07:43)
[2017-05-27 09:46] LABS: OXYGEN SATURATION (MIXED VEN) 74.1 % (60-80); PO2 MIXED VENOUS (TEMP COR) 44.2 mmHg (35-46)
[2017-05-27] MEDS ORDERED: furosemide 10 MG/1 ML 10ml inj IV ONE (11:15)
[2017-05-27] MEDS: fat emulsion IV 100 ML, MVI, adult No.4 with vit. K 5 ML, Trace element-5 inj. 0.5 ML i... IV SCH ×8 (12:06→23:03)
[2017-05-27] MEDS: cefepime 2g/NS 100ml ADVANTAGE 100 ML IV SCH ×2 (14:20→20:50)
[2017-05-27 16:13] LABS: ALBUMIN 1.6 G/DL (3.4-5.0); ANION GAP 6 (8-16); BLOOD UREA NITROGEN 27 MG/DL (7-18); BUN/CREATININE RATIO 19.1 (5.4-32.0); CALCIUM 7.8 MG/DL (8.5-10.1); CHLORIDE 106 MMOL/L (99-107); CREATININE 1.41 MG/DL (0.60-1.10); GLUCOSE 176 MG/DL (70-104); POTASSIUM 3.3 MMOL/L (3.5-5.1); SODIUM 142 MMOL/L (135-145); TOTAL CARBON DIOXIDE 30.1 MMOL/L (24-32); eGFR 50 ML/MIN
[2017-05-27] MEDS ORDERED: fentaNYL/PF 50MCG/1 ML 2ML syringe IV PRN (16:45)
[2017-05-27] MEDS ORDERED: midazolam 2 mg/2 ml injection IV PRN (16:45)
[2017-05-27] MEDS: Insulin Detemir pen SQ SCH (21:03)
[2017-05-27] MEDS: NORepinephrine 8mg/ 250ml NS 250 ML IV SCH (21:55)
[2017-05-27] MEDS ORDERED: potassium Cl 20 mEq SR tablet PO PRN ×2 (22:25)
[2017-05-27] MEDS ORDERED: potassium Cl 40MEQ/250ML bag 250 ML IV ONE (23:36)
[2017-05-28] VITALS (23 sets, daily range): BP systolic 91–169; BP diastolic 46–68
[2017-05-28] MEDS: potassium Cl 40MEQ/250ML bag 250 ML IV PRN ×2 (00:07→14:34)
[2017-05-28] MEDS: mineral oil/petrolatum ophthal oint EACHEYE SCH ×4 (02:00→20:00)
[2017-05-28] MEDS: insulin regular, human vial - multi-dose SQ SCH ×4 (02:50→21:03)
[2017-05-28] MEDS: ipratropium/albuterol 3ml nebule NEB SCH ×6 (03:06→22:57)
[2017-05-28] MEDS: enoxaparin 40mg/0.4ml syringe SUBCUT SCH (07:40)
[2017-05-28] MEDS: metroNIDAZOLE-Flagyl 500mg/NS 100 ML IV SCH ×2 (07:40→20:41)
[2017-05-28] MEDS: lactobacillus rhamnosus 10,000 MMU CELLS/CAPSULE PO SCH ×2 (07:41→17:28)
[2017-05-28] MEDS: pantoprazole 40mg Tablet.DR PO SCH (07:41)
[2017-05-28] MEDS: cefepime 2g/NS 100ml ADVANTAGE 100 ML IV SCH ×2 (08:00→20:55)
[2017-05-28] MEDS: doxazosin mesylate 2mg tablet PO SCH (08:00)
[2017-05-28] MEDS: finasteride 5mg tablet PO SCH (08:00)
[2017-05-28] MEDS: K and/or MAG REPLACEMENT MC SCH (08:25)
[2017-05-28] MEDS: morphine sulfate 8 MG/ML SYRINGE IV PRN ×2 (11:26→20:52)
[2017-05-28] MEDS ORDERED: vancomycin/NS 1 GM ADD-VANTAGE 250 ML IV SCH (12:25)
[2017-05-28] MEDS: fat emulsion IV 100 ML, MVI, adult No.4 with vit. K 5 ML, Trace element-5 inj. 0.5 ML i... IV SCH ×8 (12:39→22:53)
[2017-05-28 14:51] LABS: ABG BASE EXCESS 1.2 mmol/L (-2.0-3.0); ABG HCO3 27.4 mmol/L (22.0-26.0); ABG OXYGEN SATURATION 94.8 % (95-98); ABG PCO2 (T) 50.3 mmHg (35.0-48.0); ABG PH (T) 7.354 (7.350-7.450); ABG PO2 (T) 74.5 mmHg (83-108); FCOHb 0.3 % (0.5-1.5); FLOW 4 L/min; FMetHb 0.1 % (0.3-1.12); FO2Hb 94.4 % (94-100); TOTAL HEMOGLOBIN 12.7 G/dl (14.0-18.0)
[2017-05-28] MEDS: Insulin Detemir pen SQ SCH (22:31)
[2017-05-29] VITALS (19 sets, daily range): BP systolic 110–142; BP diastolic 47–62
[2017-05-29] MEDS: morphine sulfate 8 MG/ML SYRINGE IV PRN (00:16)
[2017-05-29] MEDS: mineral oil/petrolatum ophthal oint EACHEYE SCH ×4 (02:00→20:00)
[2017-05-29] MEDS: insulin regular, human vial - multi-dose SQ SCH ×4 (02:46→20:05)
[2017-05-29] MEDS: ipratropium/albuterol 3ml nebule NEB SCH ×6 (03:46→23:15)
[2017-05-29] MEDS: potassium Cl 40MEQ/250ML bag 250 ML IV PRN (06:49)
[2017-05-29] MEDS: enoxaparin 40mg/0.4ml syringe SUBCUT SCH (07:21)
[2017-05-29] MEDS: cefepime 2g/NS 100ml ADVANTAGE 100 ML IV SCH (07:22)
[2017-05-29] MEDS: pantoprazole 40mg Tablet.DR PO SCH (07:30)
[2017-05-29] MEDS: lactobacillus rhamnosus 10,000 MMU CELLS/CAPSULE PO SCH ×2 (07:30→17:30)
[2017-05-29] MEDS: doxazosin mesylate 2mg tablet PO SCH (08:00)
[2017-05-29] MEDS: finasteride 5mg tablet PO SCH (08:00)
[2017-05-29] MEDS: K and/or MAG REPLACEMENT MC SCH (08:00)
[2017-05-29] MEDS: metroNIDAZOLE-Flagyl 500mg/NS 100 ML IV SCH ×2 (08:47→20:01)
[2017-05-29] MEDS: fat emulsion IV 100 ML, MVI, adult No.4 with vit. K 5 ML, Trace element-5 inj. 0.5 ML i... IV SCH ×4 (08:48)
[2017-05-29] MEDS: levoFLOXACIN-Levaquin 500mg/D5 100 ML IV SCH (12:46)
[2017-05-29] MEDS: fentaNYL/PF 50MCG/1 ML 2ML syringe IV PRN ×2 (12:59→23:37)
[2017-05-29] MEDS ORDERED: polyethylene glycol 3350 17gm powd pack PO ONE (15:35)
[2017-05-29] MEDS: ondansetron/PF 4mg/2ml inj IV PRN ×2 (16:22→23:24)
[2017-05-29] MEDS: Insulin Detemir pen SQ SCH (20:06)
[2017-05-29] MEDS ORDERED: polyethylene glycol 3350 17gm powd pack PO SCH (21:00)
[2017-05-30] VITALS (23 sets, daily range): BP systolic 110–166; BP diastolic 46–71
[2017-05-30] MEDS ORDERED: VANCOMYCIN LEVEL IV ONE (00:30)
[2017-05-30 00:35] LABS: BASOPHILS % (AUTO) 0.3 % (0-1); EOSINOPHILS # (AUTO) 0.3 X10'3 (0-0.9); EOSINOPHILS % (AUTO) 1.8 % (0-6); HEMATOCRIT 34.7 % (42.0-52.0); HEMOGLOBIN 11.8 g/dl (14.0-17.9); LYMPHOCYTES # (AUTO) 0.8 X10'3 (1.1-4.8); LYMPHOCYTES % (AUTO) 5.1 % (21-51); MEAN CORPUSCULAR HEMOGLOBIN 31.8 PG (27.0-31.0); MEAN CORPUSCULAR HGB CONC 33.9 % (33.0-36.5); MEAN CORPUSCULAR VOLUME 93.7 FL (78-98); MEAN PLATELET VOLUME 9.6 FL (7.4-10.4); MONOCYTES # (AUTO) 0.7 X10'3 (0-0.9); MONOCYTES % (AUTO) 4.4 % (2-12); NEUTROPHILS # (AUTO) 13.2 X10'3 (1.8-7.7); NEUTROPHILS % (AUTO) 88.4 % (42-75); PLATELET COUNT 112 X10'3 (140-440); RED CELL DISTRIBUTION WIDTH 15.1 % (11.5-14.5); WHITE BLOOD COUNT 14.9 X10'3 (4.5-11.0)
[2017-05-30] MEDS: proCHLORperazine 10 MG/2 ml inj IV PRN ×3 (01:14→18:50)
[2017-05-30 01:27] LABS: ALANINE AMINOTRANSFERASE 30 U/L (12-78); ALBUMIN 1.3 G/DL (3.4-5.0); ALBUMIN/GLOBULIN RATIO 0.3 (1.1-1.5); ALKALINE PHOSPHATASE 104 IU/L (46-116); ANION GAP 5 (8-16); ASPARTATE AMINO TRANSFERASE 42 U/L (10-37); BILIRUBIN,TOTAL 2.6 MG/DL (0.1-1.0); BLOOD UREA NITROGEN 21 MG/DL (7-18); BUN/CREATININE RATIO 20.2 (5.4-32.0); CALCIUM 7.7 MG/DL (8.5-10.1); CHLORIDE 108 MMOL/L (99-107); CREATININE 1.04 MG/DL (0.60-1.10); GLUCOSE 143 MG/DL (70-104); MAGNESIUM 1.5 MG/DL (1.5-2.4); PREALBUMIN 8.5 MG/DL (19-36); SODIUM 143 MMOL/L (135-145); TOTAL CARBON DIOXIDE 29.6 MMOL/L (24-32); TOTAL PROTEIN 5.1 G/DL (6.4-8.2); TRIGLYCERIDES 106 MG/DL (20-135); VANCOMYCIN,TROUGH 16.2 UG/ML (6.0-14.0); eGFR 71 ML/MIN
[2017-05-30] MEDS ORDERED: potassium Cl 40MEQ/250ML bag 500 ML IV ONE ×2 (01:54→22:54)
[2017-05-30] MEDS: mineral oil/petrolatum ophthal oint EACHEYE SCH ×4 (02:00→20:00)
[2017-05-30 02:20] LABS: TOTAL CELLS COUNTED 100; TOXIC GRANULATION 2+
[2017-05-30 02:21] LABS: PLATELET ESTIMATE NORMAL
[2017-05-30] MEDS: insulin regular, human vial - multi-dose SQ SCH ×4 (02:24→20:13)
[2017-05-30] MEDS: potassium Cl 40MEQ/250ML bag 250 ML IV PRN ×4 (02:24→23:00)
[2017-05-30] MEDS: ipratropium/albuterol 3ml nebule NEB SCH ×6 (02:56→23:03)
[2017-05-30] MEDS ORDERED: albumin (human) 25% 100 ML IV solution IV ONE (05:03)
[2017-05-30 06:40] LABS: UREA NITROGEN 24HR,URINE 21.1 GM/24HR (7-20)
[2017-05-30] MEDS: enoxaparin 40mg/0.4ml syringe SUBCUT SCH (07:38)
[2017-05-30] MEDS: methylnaltrexone br 12mg/0.6ml inj***SubQ only SQ SCH (07:38)
[2017-05-30] MEDS: lactobacillus rhamnosus 10,000 MMU CELLS/CAPSULE PO SCH ×2 (07:39→16:34)
[2017-05-30] MEDS: pantoprazole 40mg Tablet.DR PO SCH (07:39)
[2017-05-30] MEDS: levoFLOXACIN-Levaquin 500mg/D5 100 ML IV SCH (07:40)
[2017-05-30] MEDS: finasteride 5mg tablet PO SCH (08:00)
[2017-05-30] MEDS: K and/or MAG REPLACEMENT MC SCH (08:00)
[2017-05-30] MEDS ORDERED: spironolactone 25 MG tablet PO SCH (08:00)
[2017-05-30] MEDS ORDERED: albumin (human) 25% 100 ML IV solution IV SCH (08:00)
[2017-05-30] MEDS: doxazosin mesylate 2mg tablet PO SCH (08:00)
[2017-05-30] MEDS: furosemide 40 MG/4 ML oral solution UD cup PO SCH ×2 (08:21→15:29)
[2017-05-30] MEDS: fat emulsion IV 100 ML, MVI, adult No.4 with vit. K 5 ML, Trace element-5 inj. 0.5 ML i... IV SCH ×8 (08:27→20:08)
[2017-05-30 08:46] LABS: ABG BASE EXCESS -10.2 mmol/L (-2.0-3.0); ABG HCO3 17.2 mmol/L (22.0-26.0); ABG OXYGEN SATURATION 96.9 % (95-98); ABG PCO2 (T) 44.6 mmHg (35.0-48.0); ABG PH (T) 7.207 (7.350-7.450); ABG PO2 (T) 90.3 mmHg (83-108); FCOHb 0.3 % (0.5-1.5); FMetHb 0.2 % (0.3-1.12); FO2Hb 96.4 % (94-100); MINUTE VOLUME 22 L/min; PATIENT TEMPERATURE 37.6; RESPIRATORY RATE 14 b/min; TOTAL HEMOGLOBIN 11.5 G/dl (14.0-18.0)
[2017-05-30] MEDS: metroNIDAZOLE-Flagyl 500mg/NS 100 ML IV SCH ×2 (09:15→20:07)
[2017-05-30] MEDS: fentaNYL/PF 50MCG/1 ML 2ML syringe IV PRN ×2 (10:26→16:34)
[2017-05-30] MEDS: CITRIC ACID PO SCH ×4 (10:48→20:10)
[2017-05-30] MEDS: SODIUM CITRATE PO SCH ×4 (10:48→20:10)
[2017-05-30 11:11] LABS: ABG BASE EXCESS -0.4 mmol/L (-2.0-3.0); ABG OXYGEN SATURATION 96.6 % (95-98); ABG PCO2 (T) 44.4 mmHg (35.0-48.0); ABG PO2 (T) 91.6 mmHg (83-108); FCOHb 0.3 % (0.5-1.5); FLOW 4 L/min; FMetHb 0.1 % (0.3-1.12); FO2Hb 96.2 % (94-100); PATIENT TEMPERATURE 37.3; TOTAL HEMOGLOBIN 12.7 G/dl (14.0-18.0)
[2017-05-30] MEDS: LORazepam 1 MG tablet PO PRN (12:13)
[2017-05-30] MEDS: albumin (human) 25% 100ml IV 100 ML IV SCH (15:30)
[2017-05-30] MEDS: ondansetron/PF 4mg/2ml inj IV PRN (17:43)
[2017-05-30] MEDS: Insulin Detemir pen SQ SCH (20:14)
[2017-05-30] MEDS: mag hydrox/Alum hydrox/simeth 30ml oral suspension PO PRN (21:05)
[2017-05-30] MEDS: acetaminophen 325mg tablet PO PRN (21:08)
[2017-05-30] MEDS: sodium phosphate inj. 15 MMOL in dextrose 5%-water 150 ML IV PRN (21:09)
[2017-05-31] VITALS (24 sets, daily range): BP systolic 106–159; BP diastolic 44–68
[2017-05-31] MEDS: furosemide 40 MG/4 ML oral solution UD cup PO SCH ×3 (00:36→16:14)
[2017-05-31] MEDS: albumin (human) 25% 100ml IV 100 ML IV SCH ×4 (00:37→23:12)
[2017-05-31] MEDS: potassium Cl 40MEQ/250ML bag 250 ML IV PRN ×2 (01:12→07:42)
[2017-05-31] MEDS: mineral oil/petrolatum ophthal oint EACHEYE SCH ×2 (02:00→07:46)
[2017-05-31] MEDS: insulin regular, human vial - multi-dose SQ SCH ×3 (02:52→20:17)
[2017-05-31] MEDS: ipratropium/albuterol 3ml nebule NEB SCH ×6 (03:07→22:47)
[2017-05-31 04:17] LABS: BASOPHILS % (AUTO) 0 % (0-1); EOSINOPHILS # (AUTO) 0.3 X10'3 (0-0.9); EOSINOPHILS % (AUTO) 1.8 % (0-6); HEMATOCRIT 30.1 % (42.0-52.0); HEMOGLOBIN 10.1 g/dl (14.0-17.9); LYMPHOCYTES # (AUTO) 0.7 X10'3 (1.1-4.8); LYMPHOCYTES % (AUTO) 4.9 % (21-51); MEAN CORPUSCULAR HEMOGLOBIN 31.5 PG (27.0-31.0); MEAN CORPUSCULAR HGB CONC 33.6 % (33.0-36.5); MEAN CORPUSCULAR VOLUME 93.7 FL (78-98); MEAN PLATELET VOLUME 8.8 FL (7.4-10.4); MONOCYTES # (AUTO) 0.8 X10'3 (0-0.9); MONOCYTES % (AUTO) 5.9 % (2-12); NEUTROPHILS # (AUTO) 12.1 X10'3 (1.8-7.7); NEUTROPHILS % (AUTO) 87.4 % (42-75); PLATELET COUNT 161 X10'3 (140-440); RED BLOOD COUNT 3.22 X10'6 (4.70-6.10); RED CELL DISTRIBUTION WIDTH 15.1 % (11.5-14.5); WHITE BLOOD COUNT 13.8 X10'3 (4.5-11.0)
[2017-05-31 04:28] LABS: PLATELET ESTIMATE NORMAL; TOTAL CELLS COUNTED 100
[2017-05-31 04:29] LABS: ANISOCYTOSIS 1+; HYPOCHROMASIA 1+; TOXIC GRANULATION 1+
[2017-05-31 04:32] LABS: ALANINE AMINOTRANSFERASE 45 U/L (12-78); ALBUMIN 2.2 G/DL (3.4-5.0); ALBUMIN/GLOBULIN RATIO 0.6 (1.1-1.5); ALKALINE PHOSPHATASE 130 IU/L (46-116); ANION GAP 7 (8-16); ASPARTATE AMINO TRANSFERASE 51 U/L (10-37); BLOOD UREA NITROGEN 23 MG/DL (7-18); BUN/CREATININE RATIO 20.5 (5.4-32.0); CALCIUM 7.3 MG/DL (8.5-10.1); CHLORIDE 109 MMOL/L (99-107); CREATININE 1.12 MG/DL (0.60-1.10); GLUCOSE 153 MG/DL (70-104); MAGNESIUM 1.5 MG/DL (1.5-2.4); PHOSPHORUS 3.2 MG/DL (2.3-4.5); POTASSIUM 3.3 MMOL/L (3.5-5.1); SODIUM 144 MMOL/L (135-145); TOTAL CARBON DIOXIDE 28.3 MMOL/L (24-32); TOTAL PROTEIN 5.6 G/DL (6.4-8.2); eGFR 65 ML/MIN
[2017-05-31] MEDS: fat emulsion IV 100 ML, MVI, adult No.4 with vit. K 5 ML, Trace element-5 inj. 0.5 ML i... IV SCH ×4 (07:41)
[2017-05-31] MEDS: piperacillin/tazo 4.5gm/100ml 100 ML IV SCH ×2 (07:41→16:14)
[2017-05-31] MEDS ORDERED: fluconazole 100mg tablet PO SCH (08:00)
[2017-05-31] MEDS: lactobacillus rhamnosus 10,000 MMU CELLS/CAPSULE PO SCH ×2 (08:16→17:09)
[2017-05-31] MEDS: LORazepam 1 MG tablet PO PRN ×2 (08:16→16:14)
[2017-05-31] MEDS: enoxaparin 40mg/0.4ml syringe SUBCUT SCH (08:16)
[2017-05-31] MEDS: finasteride 5mg tablet PO SCH (08:16)
[2017-05-31] MEDS: pantoprazole 40mg Tablet.DR PO SCH (08:16)
[2017-05-31] MEDS: doxazosin mesylate 2mg tablet PO SCH (08:16)
[2017-05-31] MEDS: CITRIC ACID PO SCH ×4 (08:18→20:17)
[2017-05-31] MEDS: SODIUM CITRATE PO SCH ×4 (08:18→20:17)
[2017-05-31] MEDS: mag hydrox/Alum hydrox/simeth 30ml oral suspension PO PRN (08:21)
[2017-05-31] MEDS ORDERED: fat emulsion IV 100 ML, MVI, adult No.4 with vit. K 10 ML, Trace element-5 inj. 1 ML in... IV SCH ×4 (14:40)
[2017-05-31] MEDS: fat emulsion IV 100 ML, MVI, adult No.4 with vit. K 10 ML, Trace element-5 inj. 1 ML in... IV SCH ×4 (19:01)
[2017-05-31] MEDS: buPROPion SR 150mg tablet PO SCH (20:17)
[2017-05-31] MEDS: diatr meglu/diatrizoate 30ml oral sol.-(3 dose) bottle PO SCH (20:17)
[2017-05-31] MEDS: Insulin Detemir pen SQ SCH (21:50)
[2017-06-01] VITALS (22 sets, daily range): BP systolic 108–155; BP diastolic 46–82
[2017-06-01] MEDS: piperacillin/tazo 4.5gm/100ml 100 ML IV SCH ×3 (00:13→16:14)
[2017-06-01] MEDS: furosemide 40 MG/4 ML oral solution UD cup PO SCH ×3 (00:13→16:14)
[2017-06-01] MEDS: insulin regular, human vial - multi-dose SQ SCH ×2 (02:32→21:15)
[2017-06-01] MEDS: ipratropium/albuterol 3ml nebule NEB SCH ×6 (03:06→23:36)
[2017-06-01] MEDS: diatr meglu/diatrizoate 30ml oral sol.-(3 dose) bottle PO SCH ×3 (04:35→09:40)
[2017-06-01 05:39] LABS: BASOPHILS % (AUTO) 0 % (0-1); EOSINOPHILS # (AUTO) 0.3 X10'3 (0-0.9); EOSINOPHILS % (AUTO) 2.3 % (0-6); HEMATOCRIT 28.6 % (42.0-52.0); HEMOGLOBIN 9.7 g/dl (14.0-17.9); LYMPHOCYTES # (AUTO) 0.7 X10'3 (1.1-4.8); LYMPHOCYTES % (AUTO) 4.8 % (21-51); MEAN CORPUSCULAR HEMOGLOBIN 31.7 PG (27.0-31.0); MEAN CORPUSCULAR HGB CONC 33.9 % (33.0-36.5); MEAN CORPUSCULAR VOLUME 93.7 FL (78-98); MEAN PLATELET VOLUME 8.7 FL (7.4-10.4); MONOCYTES # (AUTO) 0.8 X10'3 (0-0.9); MONOCYTES % (AUTO) 5.7 % (2-12); NEUTROPHILS # (AUTO) 12.4 X10'3 (1.8-7.7); NEUTROPHILS % (AUTO) 87.2 % (42-75); PLATELET COUNT 229 X10'3 (140-440); RED BLOOD COUNT 3.05 X10'6 (4.70-6.10); RED CELL DISTRIBUTION WIDTH 15.3 % (11.5-14.5); WHITE BLOOD COUNT 14.2 X10'3 (4.5-11.0)
[2017-06-01 06:07] LABS: ALANINE AMINOTRANSFERASE 36 U/L (12-78); ALBUMIN 2.6 G/DL (3.4-5.0); ALBUMIN/GLOBULIN RATIO 0.7 (1.1-1.5); ALKALINE PHOSPHATASE 115 IU/L (46-116); ANION GAP 4 (8-16); ASPARTATE AMINO TRANSFERASE 34 U/L (10-37); BILIRUBIN,TOTAL 1.9 MG/DL (0.1-1.0); BLOOD UREA NITROGEN 23 MG/DL (7-18); BUN/CREATININE RATIO 19.3 (5.4-32.0); CHLORIDE 104 MMOL/L (99-107); CREATININE 1.19 MG/DL (0.60-1.10); GLUCOSE 101 MG/DL (70-104); MAGNESIUM 1.6 MG/DL (1.5-2.4); PHOSPHORUS 3.7 MG/DL (2.3-4.5); SODIUM 143 MMOL/L (135-145); TOTAL PROTEIN 6.1 G/DL (6.4-8.2); eGFR 61 ML/MIN
[2017-06-01 06:58] LABS: POTASSIUM 2.9 MMOL/L (3.5-5.1)
[2017-06-01] MEDS ORDERED: FLUSH 5 MG ICATH ONE (08:00)
[2017-06-01] MEDS ORDERED: NORMAL SALINE ICATH ONE (08:00)
[2017-06-01] MEDS ORDERED: TPA CATHFLO ICATH ONE (08:00)
[2017-06-01] MEDS: methylnaltrexone br 12mg/0.6ml inj***SubQ only SQ SCH (08:00)
[2017-06-01] MEDS: lactobacillus rhamnosus 10,000 MMU CELLS/CAPSULE PO SCH ×2 (08:11→17:15)
[2017-06-01] MEDS: pantoprazole 40mg Tablet.DR PO SCH (08:11)
[2017-06-01] MEDS: buPROPion SR 150mg tablet PO SCH ×2 (08:12→21:09)
[2017-06-01] MEDS: doxazosin mesylate 2mg tablet PO SCH (08:12)
[2017-06-01] MEDS: enoxaparin 40mg/0.4ml syringe SUBCUT SCH (08:13)
[2017-06-01] MEDS: CITRIC ACID PO SCH ×4 (08:14→21:09)
[2017-06-01] MEDS: SODIUM CITRATE PO SCH ×4 (08:14→21:09)
[2017-06-01] MEDS: finasteride 5mg tablet PO SCH (08:14)
[2017-06-01] MEDS: fluconazole 100mg tablet PO SCH (08:15)
[2017-06-01] MEDS: potassium Cl 40MEQ/250ML bag 250 ML IV PRN ×3 (08:31→21:21)
[2017-06-01] MEDS: albumin (human) 25% 100ml IV 100 ML IV SCH ×2 (08:38→16:42)
[2017-06-01] MEDS: LORazepam 1 MG tablet PO PRN ×2 (09:39→22:24)
[2017-06-01] MEDS: fat emulsion IV 100 ML, MVI, adult No.4 with vit. K 10 ML, Trace element-5 inj. 1 ML in... IV SCH ×4 (16:16)
[2017-06-01] MEDS: Insulin Detemir pen SQ SCH (21:16)
[2017-06-02] VITALS (18 sets, daily range): BP systolic 106–158; BP diastolic 42–87
[2017-06-02] MEDS: albumin (human) 25% 100ml IV 100 ML IV SCH (00:16)
[2017-06-02] MEDS: furosemide 40 MG/4 ML oral solution UD cup PO SCH ×2 (00:16→08:55)
[2017-06-02] MEDS: piperacillin/tazo 4.5gm/100ml 100 ML IV SCH ×4 (00:16→23:56)
[2017-06-02 02:41] LABS: BASOPHILS % (AUTO) 0.1 % (0-1); EOSINOPHILS # (AUTO) 0.4 X10'3 (0-0.9); EOSINOPHILS % (AUTO) 2.8 % (0-6); HEMATOCRIT 28.1 % (42.0-52.0); HEMOGLOBIN 9.4 g/dl (14.0-17.9); LYMPHOCYTES # (AUTO) 0.9 X10'3 (1.1-4.8); LYMPHOCYTES % (AUTO) 5.9 % (21-51); MEAN CORPUSCULAR HEMOGLOBIN 31.5 PG (27.0-31.0); MEAN CORPUSCULAR HGB CONC 33.4 % (33.0-36.5); MEAN CORPUSCULAR VOLUME 94.2 FL (78-98); MEAN PLATELET VOLUME 8.6 FL (7.4-10.4); MONOCYTES # (AUTO) 0.8 X10'3 (0-0.9); MONOCYTES % (AUTO) 5.2 % (2-12); PLATELET COUNT 309 X10'3 (140-440); RED BLOOD COUNT 2.98 X10'6 (4.70-6.10); RED CELL DISTRIBUTION WIDTH 15.4 % (11.5-14.5); WHITE BLOOD COUNT 15.1 X10'3 (4.5-11.0)
[2017-06-02 03:02] LABS: ALANINE AMINOTRANSFERASE 34 U/L (12-78); ALBUMIN 2.7 G/DL (3.4-5.0); ALBUMIN/GLOBULIN RATIO 0.8 (1.1-1.5); ALKALINE PHOSPHATASE 94 IU/L (46-116); ANION GAP 2 (8-16); ASPARTATE AMINO TRANSFERASE 21 U/L (10-37); BILIRUBIN,TOTAL 1.5 MG/DL (0.1-1.0); BLOOD UREA NITROGEN 27 MG/DL (7-18); BUN/CREATININE RATIO 23.5 (5.4-32.0); CALCIUM 7.9 MG/DL (8.5-10.1); CHLORIDE 106 MMOL/L (99-107); CREATININE 1.15 MG/DL (0.60-1.10); GLUCOSE 200 MG/DL (70-104); MAGNESIUM 1.9 MG/DL (1.5-2.4); PHOSPHORUS 4.1 MG/DL (2.3-4.5); POTASSIUM 3.5 MMOL/L (3.5-5.1); PREALBUMIN 13.4 MG/DL (19-36); SODIUM 145 MMOL/L (135-145); TOTAL CARBON DIOXIDE 36.9 MMOL/L (24-32); TOTAL PROTEIN 6.3 G/DL (6.4-8.2); TRIGLYCERIDES 75 MG/DL (20-135); eGFR 63 ML/MIN
[2017-06-02] MEDS: ipratropium/albuterol 3ml nebule NEB SCH ×6 (03:13→23:51)
[2017-06-02] MEDS: insulin regular, human vial - multi-dose SQ SCH ×3 (03:40→15:57)
[2017-06-02] MEDS: doxazosin mesylate 2mg tablet PO SCH (08:53)
[2017-06-02] MEDS: buPROPion SR 150mg tablet PO SCH ×2 (08:54→21:18)
[2017-06-02] MEDS: fluconazole 100mg tablet PO SCH (08:54)
[2017-06-02] MEDS: lactobacillus rhamnosus 10,000 MMU CELLS/CAPSULE PO SCH ×2 (08:54→16:20)
[2017-06-02] MEDS: SODIUM CITRATE PO SCH (08:55)
[2017-06-02] MEDS: pantoprazole 40mg Tablet.DR PO SCH (08:55)
[2017-06-02] MEDS: CITRIC ACID PO SCH (08:55)
[2017-06-02] MEDS: finasteride 5mg tablet PO SCH (08:55)
[2017-06-02] MEDS: enoxaparin 40mg/0.4ml syringe SUBCUT SCH (09:01)
[2017-06-02] MEDS: fat emulsion IV 100 ML, MVI, adult No.4 with vit. K 10 ML, Trace element-5 inj. 1 ML in... IV SCH ×4 (11:35)
[2017-06-02] MEDS ORDERED: potassium Cl 20 mEq SR tablet PO PRN (12:55)
[2017-06-02] MEDS ORDERED: potassium Cl 40MEQ/NS 500ml 500 ML IV PRN ×2 (12:55)
[2017-06-02] MEDS: LORazepam 1 MG tablet PO PRN (16:00)
[2017-06-02] MEDS: Insulin Detemir pen SQ SCH (21:00)
[2017-06-03] VITALS (13 sets, daily range): BP systolic 116–150; BP diastolic 50–64
[2017-06-03] MEDS: ipratropium/albuterol 3ml nebule NEB SCH ×6 (03:04→23:02)
[2017-06-03] MEDS: fat emulsion IV 100 ML, MVI, adult No.4 with vit. K 10 ML, Trace element-5 inj. 1 ML in... IV SCH ×8 (05:32→23:12)
[2017-06-03 07:44] LABS: BASOPHILS % (AUTO) 0.1 % (0-1); EOSINOPHILS # (AUTO) 0.3 X10'3 (0-0.9); EOSINOPHILS % (AUTO) 2.7 % (0-6); HEMOGLOBIN 8.6 g/dl (14.0-17.9); LYMPHOCYTES # (AUTO) 0.8 X10'3 (1.1-4.8); LYMPHOCYTES % (AUTO) 6.3 % (21-51); MEAN CORPUSCULAR HEMOGLOBIN 31.6 PG (27.0-31.0); MEAN CORPUSCULAR HGB CONC 33.2 % (33.0-36.5); MEAN CORPUSCULAR VOLUME 95.2 FL (78-98); MONOCYTES # (AUTO) 0.7 X10'3 (0-0.9); MONOCYTES % (AUTO) 5.7 % (2-12); NEUTROPHILS # (AUTO) 10.2 X10'3 (1.8-7.7); NEUTROPHILS % (AUTO) 85.2 % (42-75); PLATELET COUNT 388 X10'3 (140-440); RED BLOOD COUNT 2.73 X10'6 (4.70-6.10); RED CELL DISTRIBUTION WIDTH 15.6 % (11.5-14.5)
[2017-06-03 07:59] LABS: ALANINE AMINOTRANSFERASE 28 U/L (12-78); ALBUMIN 2.4 G/DL (3.4-5.0); ALBUMIN/GLOBULIN RATIO 0.6 (1.1-1.5); ALKALINE PHOSPHATASE 82 IU/L (46-116); ANION GAP 1 (8-16); ASPARTATE AMINO TRANSFERASE 15 U/L (10-37); BILIRUBIN,TOTAL 1.2 MG/DL (0.1-1.0); BLOOD UREA NITROGEN 24 MG/DL (7-18); BUN/CREATININE RATIO 23.8 (5.4-32.0); CALCIUM 7.9 MG/DL (8.5-10.1); CHLORIDE 105 MMOL/L (99-107); CREATININE 1.01 MG/DL (0.60-1.10); GLUCOSE 169 MG/DL (70-104); PHOSPHORUS 3.2 MG/DL (2.3-4.5); POTASSIUM 3.2 MMOL/L (3.5-5.1); SODIUM 146 MMOL/L (135-145); TOTAL CARBON DIOXIDE 39.8 MMOL/L (24-32); TOTAL PROTEIN 6.2 G/DL (6.4-8.2); eGFR 74 ML/MIN
[2017-06-03] MEDS: K and/or MAG REPLACEMENT MC SCH (08:00)
[2017-06-03] MEDS: methylnaltrexone br 12mg/0.6ml inj***SubQ only SQ SCH (08:00)
[2017-06-03] MEDS: pantoprazole 40mg Tablet.DR PO SCH (08:45)
[2017-06-03] MEDS: LORazepam 1 MG tablet PO PRN ×2 (08:45→22:13)
[2017-06-03] MEDS: buPROPion SR 150mg tablet PO SCH ×2 (08:45→21:53)
[2017-06-03] MEDS: lactobacillus rhamnosus 10,000 MMU CELLS/CAPSULE PO SCH ×2 (08:45→16:41)
[2017-06-03] MEDS: piperacillin/tazo 4.5gm/100ml 100 ML IV SCH ×3 (08:46→23:13)
[2017-06-03] MEDS: fluconazole 100mg tablet PO SCH (08:46)
[2017-06-03] MEDS: finasteride 5mg tablet PO SCH (08:46)
[2017-06-03] MEDS: doxazosin mesylate 2mg tablet PO SCH (08:46)
[2017-06-03] MEDS: potassium Cl 20 mEq SR tablet PO PRN ×2 (08:47→16:43)
[2017-06-03] MEDS: enoxaparin 40mg/0.4ml syringe SUBCUT SCH (08:47)
[2017-06-03] MEDS: insulin regular, human vial - multi-dose SQ SCH (09:23)
[2017-06-03] MEDS: Insulin Detemir pen SQ SCH (22:01)
[2017-06-03] MEDS: acetaminophen 325mg tablet PO PRN (22:13)
[2017-06-04] VITALS (7 sets, daily range): BP systolic 104–144; BP diastolic 48–64
[2017-06-04] MEDS: ipratropium/albuterol 3ml nebule NEB SCH ×6 (03:26→23:25)
[2017-06-04 06:54] LABS: BASOPHILS % (AUTO) 0.5 % (0-1); EOSINOPHILS # (AUTO) 0.4 X10'3 (0-0.9); EOSINOPHILS % (AUTO) 4.1 % (0-6); HEMATOCRIT 26.5 % (42.0-52.0); HEMOGLOBIN 8.9 g/dl (14.0-17.9); MEAN CORPUSCULAR HGB CONC 33.6 % (33.0-36.5); MEAN CORPUSCULAR VOLUME 95.5 FL (78-98); MEAN PLATELET VOLUME 8.2 FL (7.4-10.4); MONOCYTES # (AUTO) 0.7 X10'3 (0-0.9); MONOCYTES % (AUTO) 6.9 % (2-12); NEUTROPHILS # (AUTO) 7.5 X10'3 (1.8-7.7); NEUTROPHILS % (AUTO) 78.5 % (42-75); PLATELET COUNT 405 X10'3 (140-440); RED BLOOD COUNT 2.77 X10'6 (4.70-6.10); RED CELL DISTRIBUTION WIDTH 15.6 % (11.5-14.5); WHITE BLOOD COUNT 9.5 X10'3 (4.5-11.0)
[2017-06-04 07:00] LABS: ALBUMIN 2.2 G/DL (3.4-5.0); ANION GAP 1 (8-16); BLOOD UREA NITROGEN 24 MG/DL (7-18); BUN/CREATININE RATIO 23.8 (5.4-32.0); CALCIUM 8.1 MG/DL (8.5-10.1); CHLORIDE 102 MMOL/L (99-107); CREATININE 1.01 MG/DL (0.60-1.10); GLUCOSE 154 MG/DL (70-104); POTASSIUM 3.4 MMOL/L (3.5-5.1); SODIUM 144 MMOL/L (135-145); eGFR 74 ML/MIN
[2017-06-04 07:02] LABS: PARTIAL THROMBOPLASTIN TIME 29 SECONDS (22-32)
[2017-06-04 07:03] LABS: TOTAL CARBON DIOXIDE 40.9 MMOL/L (24-32)
[2017-06-04] MEDS: K and/or MAG REPLACEMENT MC SCH (08:00)
[2017-06-04] MEDS: lactobacillus rhamnosus 10,000 MMU CELLS/CAPSULE PO SCH ×2 (08:14→16:36)
[2017-06-04] MEDS: LORazepam 1 MG tablet PO PRN (08:14)
[2017-06-04] MEDS: doxazosin mesylate 2mg tablet PO SCH (08:14)
[2017-06-04] MEDS: buPROPion SR 150mg tablet PO SCH ×2 (08:14→20:29)
[2017-06-04] MEDS: finasteride 5mg tablet PO SCH (08:14)
[2017-06-04] MEDS: pantoprazole 40mg Tablet.DR PO SCH (08:14)
[2017-06-04] MEDS: fluconazole 100mg tablet PO SCH (08:15)
[2017-06-04] MEDS: piperacillin/tazo 4.5gm/100ml 100 ML IV SCH ×3 (08:15→23:53)
[2017-06-04] MEDS: enoxaparin 40mg/0.4ml syringe SUBCUT SCH (08:15)
[2017-06-04] MEDS: potassium Cl 20 mEq SR tablet PO PRN ×2 (08:15→16:36)
[2017-06-04] MEDS: fat emulsion IV 100 ML, MVI, adult No.4 with vit. K 10 ML, Trace element-5 inj. 1 ML in... IV SCH ×8 (13:15→17:40)
[2017-06-04] MEDS ORDERED: fat emulsion IV 100 ML, MVI, adult No.4 with vit. K 10 ML, Trace element-5 inj. 1 ML in... IV SCH ×8 (13:20→14:50)
[2017-06-04] MEDS: Insulin Detemir pen SQ SCH (20:31)
[2017-06-05] MEDS: acetaminophen 325mg tablet PO PRN (00:01)
[2017-06-05] MEDS: LORazepam 1 MG tablet PO PRN ×2 (00:02→16:32)
[2017-06-05] MEDS: ipratropium/albuterol 3ml nebule NEB SCH ×4 (03:28→15:23)
[2017-06-05 06:00] VITALS: BP 132/65
[2017-06-05] MEDS: K and/or MAG REPLACEMENT MC SCH (08:00)
[2017-06-05] MEDS: finasteride 5mg tablet PO SCH (08:17)
[2017-06-05] MEDS: doxazosin mesylate 2mg tablet PO SCH (08:18)
[2017-06-05] MEDS: lactobacillus rhamnosus 10,000 MMU CELLS/CAPSULE PO SCH (08:18)
[2017-06-05] MEDS: fluconazole 100mg tablet PO SCH (08:18)
[2017-06-05] MEDS: pantoprazole 40mg Tablet.DR PO SCH (08:18)
[2017-06-05] MEDS: piperacillin/tazo 4.5gm/100ml 100 ML IV SCH (08:18)
[2017-06-05] MEDS: buPROPion SR 150mg tablet PO SCH (08:19)
[2017-06-05] MEDS: enoxaparin 40mg/0.4ml syringe SUBCUT SCH (08:20)
[2017-06-05] MEDS: methylnaltrexone br 12mg/0.6ml inj***SubQ only SQ SCH (08:27)
[2017-06-05] MEDS: potassium Cl 20 mEq SR tablet PO PRN (08:44)
[2017-06-05 11:00] VITALS: BP 126/56
[2017-06-05] MEDS ORDERED: PIPE4.5F6 IV (13:28)
[2017-06-05] MEDS ORDERED: FLUC100T9 PO (13:28)
[2017-06-05] MEDS ORDERED: ENOX40DI11 SUBCUT (13:28)
[2017-06-05] MEDS ORDERED: IPRA3AMP9 NEB (13:28)
[2017-06-05 15:00] VITALS: BP 121/56
[2017-06-05 17:00] VITALS: BP 126/56
== END 2017-06-05 17:05 | DRG 329 ==
LOC: EDSTATUS 09:30 → PAS IN 11:18 → EDSTATUS 14:30 → SUR 3N 19:04 → CICU 2S 05-24 01:07 → PCU 3S 06-02 12:45
PROVIDERS: ADMIT Surgery; ATTEND Surgery
PROC: 0DBN4ZZ Excision of Sigmoid Colon, Percutaneous Endoscopic Approach (ICD-10-PCS; principal; 2017-05-18 14:59)
PROC: 0D1M4Z4 Bypass Descending Colon to Cutaneous, Percutaneous Endoscopic Approach (ICD-10-PCS; 2017-05-24)
PROC: 5A1945Z Respiratory Ventilation, 24-96 Consecutive Hours (ICD-10-PCS; 2017-05-24)
PROC: 5A09357 Assistance with Respiratory Ventilation, Less than 24 Consecutive Hours, Continuous Positive Airway Pressure (ICD-10-PCS; 2017-05-26)
PROC: 5A09357 Assistance with Respiratory Ventilation, Less than 24 Consecutive Hours, Continuous Positive Airway Pressure (ICD-10-PCS; 2017-05-27)
PROC: 0W9G30Z Drainage of Peritoneal Cavity with Drainage Device, Percutaneous Approach (ICD-10-PCS; 2017-05-27)
PROC: 5A09457 Assistance with Respiratory Ventilation, 24-96 Consecutive Hours, Continuous Positive Airway Pressure (ICD-10-PCS; 2017-05-28)
PROC: BW251ZZ Computerized Tomography (CT Scan) of Chest, Abdomen and Pelvis using Low Osmolar Contrast (ICD-10-PCS; 2017-06-01)
PROC: 5A09357 Assistance with Respiratory Ventilation, Less than 24 Consecutive Hours, Continuous Positive Airway Pressure (ICD-10-PCS; 2017-06-01)
PROC: 02HV33Z Insertion of Infusion Device into Superior Vena Cava, Percutaneous Approach (ICD-10-PCS; 2017-06-01)
PROC: B548ZZA Ultrasonography of Superior Vena Cava, Guidance (ICD-10-PCS; 2017-06-01)
PROC: 5A09357 Assistance with Respiratory Ventilation, Less than 24 Consecutive Hours, Continuous Positive Airway Pressure (ICD-10-PCS; 2017-06-02)
PROC: 5A09357 Assistance with Respiratory Ventilation, Less than 24 Consecutive Hours, Continuous Positive Airway Pressure (ICD-10-PCS; 2017-06-03)
PROC: 5A09357 Assistance with Respiratory Ventilation, Less than 24 Consecutive Hours, Continuous Positive Airway Pressure (ICD-10-PCS; 2017-06-04)
PROC: 5A09357 Assistance with Respiratory Ventilation, Less than 24 Consecutive Hours, Continuous Positive Airway Pressure (ICD-10-PCS; 2017-06-05)
DX: K57.32 Diverticulitis of large intestine without perforation or abscess without bleeding (principal); A41.9 Sepsis, unspecified organism; J96.00 Acute respiratory failure, unspecified whether with hypoxia or hypercapnia; K65.0 Generalized (acute) peritonitis; R65.21 Severe sepsis with septic shock; K65.1 Peritoneal abscess; N17.9 Acute kidney failure, unspecified; N40.0 Benign prostatic hyperplasia without lower urinary tract symptoms; F17.290 Nicotine dependence, other tobacco product, uncomplicated; M19.90 Unspecified osteoarthritis, unspecified site; E66.9 Obesity, unspecified; Z79.899 Other long term (current) drug therapy; Z79.01 Long term (current) use of anticoagulants; Z88.0 Allergy status to penicillin; Z88.6 Allergy status to analgesic agent; Z88.8 Allergy status to other drugs, medicaments and biological substances; Z68.27 Body mass index [BMI] 27.0-27.9, adult
CPT/HCPCS: 36415; 36569; 36600; 49406; 71010; 71250; 74000; 74176; 76001; 76937; 80048; 80053; 80202; 81003; 82803; 82810; 82948; 83605; 83735; 83880; 84100; 84132; 84134; 84145; 84478; 84484; 84560; 85018; 85025; 85610; 85730; 86885; 86900; 86901; 86920; 87040; 87070; 87075; 87077; 87102; 87186; 88307; 93005; 93306; 94002; 94003; 94640; 94660; 94760; 97110; 97161; 97530; A4402; A4414; A4421; A4649; A6212; A6213; A6253; A6255; A6257; A6258; A6446; A6449; A7000; A7015; A7526; C1729; C1751; C1758; C1769; J0690; J0692; J0694; J0780; J1100; J1170; J1250; J1650; J1815; J1940; J1956; J2001; J2060; J2175; J2212; J2250; J2270; J2405; J2543; J2704; J2710; J2997; J3010; J3370; J3480; J3490; J7030; J7042; J7060; J7120; P9045; P9047; Q9963

== ENCOUNTER → 2021-08-05 | Day surgery (SDC) | payer MEDICARE, BC ==
[2021-07-31 16:45] LABS: BASOPHILS % (AUTO) 0.4 % (0-1); EOSINOPHILS # (AUTO) 0.3 X10'3 (0-0.9); EOSINOPHILS % (AUTO) 3.3 % (0-6); LYMPHOCYTES # (AUTO) 1.7 X10'3 (1.1-4.8); LYMPHOCYTES % (AUTO) 22.2 % (21-51); MEAN CORPUSCULAR HEMOGLOBIN 31.5 PG (27.0-31.0); MEAN CORPUSCULAR HGB CONC 33.6 g/dL (33.0-36.5); MEAN CORPUSCULAR VOLUME 93.6 FL (78-98); MEAN PLATELET VOLUME 7.9 FL (7.4-10.4); MONOCYTES # (AUTO) 0.7 X10'3 (0-0.9); MONOCYTES % (AUTO) 8.6 % (2-12); NEUTROPHILS % (AUTO) 65.5 % (42-75); PRE OP HEMATOCRIT 42.7 % (42.0-52.0); PRE OP HEMOGLOBIN 14.3 g/dL (14.0-17.9); PRE OP PLATELET COUNT 185 X10'3 (140-440); RED BLOOD COUNT 4.56 X10'6 (4.70-6.10); RED CELL DISTRIBUTION WIDTH 14.5 % (11.5-14.5)
[2021-07-31 17:03] LABS: ALBUMIN 3.7 G/DL (3.4-5.0); ALKALINE PHOSPHATASE 86 IU/L (46-116); BLOOD UREA NITROGEN 20 MG/DL (7-18); BUN/CREATININE RATIO 18.3 (5.4-32.0); CALCIUM 9.2 MG/DL (8.5-10.1); CHLORIDE 104 MMOL/L (99-107); CREATININE 1.09 MG/DL (0.60-1.10); PRE OP ALT 26 U/L (30-65); PRE OP ANION GAP 9 (8-16); PRE OP AST 15 U/L (10-37); PRE OP BILIRUB, TOTAL 0.2 MG/DL (0.0-1.0); PRE OP GLUCOSE 95 MG/DL (70-104); PRE OP POTASSIUM 4.5 MMOL/L (3.4-5.1); PRE OP SODIUM 143 MMOL/L (135-145); TOTAL CARBON DIOXIDE 30.2 MMOL/L (24-32); TOTAL PROTEIN 7.3 G/DL (6.4-8.2); eGFR 67 ML/MIN
[2021-07-31 17:12] LABS: CLARITY,URINE CLEAR (Clear); COLOR,URINE YELLOW (Yellow); GLUCOSE, URINE NEGATIVE (Neg); KETONES,URINE NEGATIVE (Neg); LEUKOCYTE ESTERASE ,URINE NEGATIVE (Neg); NITRITES, URINE NEGATIVE (Neg); OCCULT BLOOD,URINE NEGATIVE (Neg); PH,URINE 5.5 (4.8-8.0); PROTEIN,URINE NEGATIVE (Neg); UROBILINOGEN,URINE 0.2 E.U/dL (0.2-1.0)
[2021-07-31 17:20] LABS: UA COLLECTION TYPE CLN CATCH MIDSTREAM
[~2021-08-05] VITALS: Ht 182.9 cm; Wt 123.1 kg
[2021-08-05] VITALS (14 sets, daily range): BP systolic 113–154; BP diastolic 67–85
[~2021-08-05] MED LIST changes: +BUPIVACAINE liposomal/PF 13.3 MG/ML vial IM ONE; +BUPIVAcaine 0.5% inj/PF 30 ML ONE; -BUPR150T8 PO; +BUPR300T86 PO; -DOXA4TAB3 PO; +DOXA4TAB5 PO; +HYDROmorphone/PF 0.2 MG/ML SYRINGE IV PRN; +LIDOcaine 2% (20mg/ml) 5ml vial ONE; +MELO-102 PO; -MELO15TA13 PO; -OMEP20TA5 PO; +OMEP40CA21 PO; +acetaminophen 1,000mg/100ml IV 100 ML IV PRN; +atropine 0.4 mg/ml 20ml vial ONE; -ceFOXitin 2 GM ADDvantage bag 100 ML IV ONE; +clindamycin-Cleocin 900mg/D5W 50 ML IV ONE; +fentaNYL /PF 50mcg/ml 5ml ampule ONE; +fentaNYL/PF 50MCG/1 ML 2ML syringe IV PRN; +glycopyrrolate 0.2mg/ml inj ONE; +hydrALAZINE 20mg/ml inj. IV PRN; +ketorolac tromethamine 15mg/ml inj. IV ONE; +labetalol 20mg/4ml (5mg/ml) syringe IV PRN; +midazolam 1 mg/ML 2ml injection ONE; +morphine 2 MG/ML inj. syringe IV PRN; +morphine 4 MG/ML inj SYRINge IV PRN; +ondansetron/PF 4mg/2ml inj IV PRN; +ondansetron/PF 4mg/2ml inj ONE; +oxyCODONE/APAP 5-325mg tablet PO ONE; +propofol inj 20 ML IV ONE; +rocuronium 10mg/ml inj IV ONE
--- NOTE | 2021-08-05 13:39 | NUR ---
Received from OR via [facility] , accompanied by Anesthesiologist dR. ANTONIO and report given by Anesthesiolgist. VVS, 20 GUAGE RIGHT HAND, MASK ON 10 LITERS, LAPS SITES X 4, LAP SITE ON LOWER LEFT ABD. HAS 1 06/07 IN STRING HANGING, LR @ 100 Addendum: 08/05/21 at 1348 by Miranda Funes RN Amended: Links added.
[2021-08-05] MEDS: fentaNYL/PF 50MCG/1 ML 2ML syringe IV PRN ×2 (14:09→14:25)
--- NOTE | 2021-08-05 15:59 | NUR ---
PATIENT MEETS DISCHARGE CRITERIA, VSS, IV DC'D NO COMPLICATIONS, PATIENT URINATED, CLIPPED SUTURE AT LAP SITE ON LOWER LEFT ABD. AND PUT A BANDAGE ON IT PER DR PYLE, EDUCATED PATIENT AND FAMILY ON THE IMPORTANCE OF THE INCENTIVE SPIROMETER AT HOME, PAIN AT TOLERABLE LEVEL PER PATIENT Addendum: 08/05/21 at 1647 by Miranda Funes RN Amended: Links added.
== END | disposition home or self-care (01) ==
LOC: PAS 07:59
PROVIDERS: ATTEND Surgery
DX: K43.9 Ventral hernia without obstruction or gangrene (principal); E66.01 Morbid (severe) obesity due to excess calories; Z68.36 Body mass index [BMI] 36.0-36.9, adult; Z79.899 Other long term (current) drug therapy; Z88.5 Allergy status to narcotic agent; Z88.1 Allergy status to other antibiotic agents; Z93.3 Colostomy status; Z85.828 Personal history of other malignant neoplasm of skin; Z87.891 Personal history of nicotine dependence; Z90.49 Acquired absence of other specified parts of digestive tract
CPT/HCPCS: 36415; 49652; 64488; 80053; 81003; 82948; 85025; C1781; C9290; J0131; J0461; J1885; J2250; J2270; J2405; J2704; J3010; J3490; J7030; J7120; S0020; U0003; U0005; Z7506; Z7508; Z7512; A4215; A4618; A7000

== ENCOUNTER 2022-12-05 08:06 | Inpatient (IN) | payer MEDICARE, BC ==
[~2022-12-05] VITALS: Ht 182.9 cm; Wt 110.9 kg
[~2022-12-05 08:06] MED LIST changes: +ACET-1025 PO; -BUPIVACAINE liposomal/PF 13.3 MG/ML vial IM ONE; -BUPIVAcaine 0.5% inj/PF 30 ML ONE; +ERYT1OIN6 TOP; -FINA5TAB11 PO; -HYDROmorphone/PF 0.2 MG/ML SYRINGE IV PRN; -LIDOcaine 2% (20mg/ml) 5ml vial ONE; +TRIA1CAP88 PO; -acetaminophen 1,000mg/100ml IV 100 ML IV PRN; -atropine 0.4 mg/ml 20ml vial ONE; -clindamycin-Cleocin 900mg/D5W 50 ML IV ONE; -famotidine 20mg tablet PO ONE; -fentaNYL /PF 50mcg/ml 5ml ampule ONE; -fentaNYL/PF 50MCG/1 ML 2ML syringe IV PRN; -glycopyrrolate 0.2mg/ml inj ONE; -hydrALAZINE 20mg/ml inj. IV PRN; -ketorolac tromethamine 15mg/ml inj. IV ONE; -labetalol 20mg/4ml (5mg/ml) syringe IV PRN; -midazolam 1 mg/ML 2ml injection ONE; -morphine 2 MG/ML inj. syringe IV PRN; -morphine 4 MG/ML inj SYRINge IV PRN; -ondansetron/PF 4mg/2ml inj IV PRN; -ondansetron/PF 4mg/2ml inj ONE; -oxyCODONE/APAP 5-325mg tablet PO ONE; -propofol inj 20 ML IV ONE; -ringers solution, lacted 1,000 ML IV SCH; -rocuronium 10mg/ml inj IV ONE
[2022-12-05] MEDS ORDERED: morphine 4 MG/ML inj SYRINge IV ONE (08:20)
[2022-12-05] MEDS ORDERED: ondansetron/PF 4mg/2ml inj IV ONE (08:20)
[2022-12-05] MEDS ORDERED: normal saline 1000ML IV soln IVB ONE (08:25)
[2022-12-05 08:54] LABS: BASOPHILS % (AUTO) 0.2 % (0-1); EOSINOPHILS % (AUTO) 0.5 % (0-6); HEMATOCRIT 37.4 % (42.0-52.0); HEMOGLOBIN 12.3 g/dl (14.0-17.9); LYMPHOCYTES # (AUTO) 0.7 X10'3 (1.1-4.8); LYMPHOCYTES % (AUTO) 8.5 % (21-51); MEAN CORPUSCULAR HEMOGLOBIN 30.5 PG (27.0-31.0); MEAN CORPUSCULAR VOLUME 92.5 FL (78-98); MEAN PLATELET VOLUME 7.9 FL (7.4-10.4); MONOCYTES # (AUTO) 0.4 X10'3 (0-0.9); MONOCYTES % (AUTO) 5.5 % (2-12); NEUTROPHILS # (AUTO) 6.6 X10'3 (1.8-7.7); NEUTROPHILS % (AUTO) 85.3 % (42-75); PLATELET COUNT 230 X10'3 (140-440); RED BLOOD COUNT 4.04 X10'6 (4.70-6.10); RED CELL DISTRIBUTION WIDTH 14.9 % (11.5-14.5); WHITE BLOOD COUNT 7.8 X10'3 (4.5-11.0)
[2022-12-05 09:20] LABS: ALANINE AMINOTRANSFERASE 522 U/L (12-78); ALBUMIN 3.3 G/DL (3.4-5.0); ALBUMIN/GLOBULIN RATIO 0.8 (1.1-1.5); ALKALINE PHOSPHATASE 789 IU/L (46-116); ANION GAP 6 (8-16); ASPARTATE AMINO TRANSFERASE 361 U/L (10-37); BLOOD UREA NITROGEN 13 MG/DL (7-18); BUN/CREATININE RATIO 9.8 (10.0-20.0); CALCIUM 9.1 MG/DL (8.5-10.1); CHLORIDE 101 MMOL/L (99-107); CREATININE 1.32 MG/DL (0.60-1.10); GLUCOSE 120 MG/DL (70-104); SODIUM 135 MMOL/L (135-145); TOTAL CARBON DIOXIDE 27.8 MMOL/L (24-32); TOTAL PROTEIN 7.2 G/DL (6.4-8.2); eGFR 53 ML/MIN
[2022-12-05] MEDS ORDERED: iohexol 300mg/ml 100ml inj. ONE (09:34)
[2022-12-05 09:51] LABS: LIPASE 13615 U/L (73-393)
[2022-12-05] MEDS ORDERED: ceFOXitin 2GM-NS 100mL ADDvant 100 ML IV ONE (10:15)
[2022-12-05 10:39] LABS: CLARITY,URINE CLEAR (Clear); COLOR,URINE YELLOW (Yellow); GLUCOSE, URINE NEGATIVE (Neg); KETONES,URINE NEGATIVE (Neg); LEUKOCYTE ESTERASE ,URINE NEGATIVE (Neg); NITRITES, URINE NEGATIVE (Neg); OCCULT BLOOD,URINE NEGATIVE (Neg); PROTEIN,URINE NEGATIVE (Neg)
[2022-12-05] MEDS ORDERED: metoclopramide 5 mg/ml inj IV ONE (10:50)
[2022-12-05] MEDS ORDERED: diphenhydrAMINE 50 mg/ml inj IV ONE (10:50)
[2022-12-05 10:58] LABS: UA COLLECTION TYPE CLN CATCH MIDSTREAM
[2022-12-05] MEDS ORDERED: magnesium hydroxide 30ml (MOM) UD suspension PO PRN (11:00)
[2022-12-05] MEDS ORDERED: potassium Cl 20 mEq SR tablet PO PRN ×2 (11:00)
[2022-12-05] MEDS ORDERED: HYDROmorphone/PF 0.2 MG/ML SYRINGE IV PRN (11:00)
[2022-12-05] MEDS ORDERED: magnesium 4gm in 100ml NS 100 ML IV PRN (11:00)
[2022-12-05] MEDS ORDERED: magnesium Cl slow-release 64mg tablet PO PRN (11:00)
[2022-12-05] MEDS ORDERED: potassium Cl 40MEQ/1/2NS 520ml 520 ML IV PRN (11:00)
[2022-12-05] MEDS ORDERED: magnesium 2GM in 50ml NS 50 ML IV PRN (11:00)
[2022-12-05] MEDS: normal saline 1000ml 1,000 ML IV SCH ×2 (11:19→18:34)
[2022-12-05] MEDS ORDERED: MOME17SP11 BOTHNARES (12:18)
[2022-12-05] MEDS ORDERED: LORazepam 2 mg/ml vial IV ONE ×2 (13:25→13:30)
--- NOTE | 2022-12-05 14:11 | NUR ---
pt refused mri, pt was offered ativan but still refused, provider was made aware with a page
[2022-12-05] MEDS: ondansetron/PF 4mg/2ml inj IV PRN ×2 (16:09→23:53)
[2022-12-05] MEDS: ceFOXitin inj 1,000 MG in normal saline 100ml IV soln 100 ML IV SCH ×2 (16:14→23:52)
[2022-12-05] MEDS: K and/or MAG REPLACEMENT MC SCH (19:24)
[2022-12-05] MEDS: HYDROmorphone inj. 0.5 MG/0.5 ML DISP.SYRIN IV PRN ×2 (19:26→23:52)
[2022-12-05] MEDS: docusate sod 100mg capsule PO SCH (19:44)
--- NOTE | 2022-12-05 21:58 | NUR ---
PT PLACED ON HOSPITAL BED.
[2022-12-06] MEDS: normal saline 1000ml 1,000 ML IV SCH ×3 (01:17→16:41)
[2022-12-06 02:52] LABS: BASOPHILS % (AUTO) 0.1 % (0-1); EOSINOPHILS % (AUTO) 0.2 % (0-6); HEMATOCRIT 36.6 % (42.0-52.0); LYMPHOCYTES # (AUTO) 0.5 X10'3 (1.1-4.8); LYMPHOCYTES % (AUTO) 4.6 % (21-51); MEAN CORPUSCULAR HEMOGLOBIN 30.6 PG (27.0-31.0); MEAN CORPUSCULAR HGB CONC 32.8 g/dL (33.0-36.5); MEAN CORPUSCULAR VOLUME 93.2 FL (78-98); MEAN PLATELET VOLUME 7.8 FL (7.4-10.4); MONOCYTES # (AUTO) 0.8 X10'3 (0-0.9); MONOCYTES % (AUTO) 6.7 % (2-12); NEUTROPHILS % (AUTO) 88.4 % (42-75); PLATELET COUNT 220 X10'3 (140-440); RED BLOOD COUNT 3.93 X10'6 (4.70-6.10); RED CELL DISTRIBUTION WIDTH 14.8 % (11.5-14.5); WHITE BLOOD COUNT 11.3 X10'3 (4.5-11.0)
[2022-12-06 03:08] LABS: ALANINE AMINOTRANSFERASE 362 U/L (12-78); ALBUMIN 2.8 G/DL (3.4-5.0); ALBUMIN/GLOBULIN RATIO 0.8 (1.1-1.5); ALKALINE PHOSPHATASE 664 IU/L (46-116); ANION GAP 8 (8-16); ASPARTATE AMINO TRANSFERASE 162 U/L (10-37); BILIRUBIN,TOTAL 0.7 MG/DL (0.1-1.0); BLOOD UREA NITROGEN 11 MG/DL (7-18); CALCIUM 8.5 MG/DL (8.5-10.1); CHLORIDE 103 MMOL/L (99-107); CREATININE 1.22 MG/DL (0.60-1.10); GLUCOSE 85 MG/DL (70-104); LIPASE 874 U/L (73-393); MAGNESIUM 1.7 MG/DL (1.5-2.4); POTASSIUM 3.8 MMOL/L (3.5-5.1); SODIUM 138 MMOL/L (135-145); TOTAL CARBON DIOXIDE 27.4 MMOL/L (24-32); TOTAL PROTEIN 6.5 G/DL (6.4-8.2); eGFR 58 ML/MIN
[2022-12-06] MEDS ORDERED: HYDROmorphone 1 mg/ml syringe ONE (03:49)
[2022-12-06] MEDS: HYDROmorphone inj. 0.5 MG/0.5 ML DISP.SYRIN IV PRN ×3 (03:55→11:53)
--- NOTE | 2022-12-06 03:56 | NUR ---
pt has order for 1mg dilaudid IV (2- 0.5mg/0.5ml syringes), however there was not enough 0.5mg/0.5ml syringes in [facility] to fullfill order. [facility] gave option to pull a 1mg/1ml syringe to satisfy order.
[2022-12-06] MEDS: acetaminophen 325mg tablet PO PRN (07:08)
[2022-12-06 08:00] VITALS: BP 123/63
[2022-12-06] MEDS: K and/or MAG REPLACEMENT MC SCH ×2 (08:00→19:04)
[2022-12-06] MEDS: docusate sod 100mg capsule PO SCH ×2 (08:00→19:03)
--- NOTE | 2022-12-06 08:00 | NUR ---
Patient in room PCU 3021. I have received report and had the opportunity to ask questions and assume patient care.
[2022-12-06] MEDS: enoxaparin 40mg/0.4ml syringe SUBCUT SCH (08:22)
[2022-12-06] MEDS: ceFOXitin inj 1,000 MG in normal saline 100ml IV soln 100 ML IV SCH ×2 (08:58→15:40)
[2022-12-06 10:00] VITALS: BP 134/59
[2022-12-06] MEDS: ondansetron/PF 4mg/2ml inj IV PRN ×2 (10:43→21:44)
[2022-12-06] MEDS ORDERED: LORazepam 2 mg/ml vial IV ONE (12:45)
[2022-12-06] MEDS ORDERED: HYDROmorphone 1 mg/ml syringe IV ONE (12:45)
[2022-12-06 14:00] VITALS: BP 130/74
[2022-12-06 18:00] VITALS: BP 148/63
[2022-12-06] MEDS ORDERED: fluticasone nasal spray 16GM bottle NS PRN (18:00)
--- NOTE | 2022-12-06 18:25 | NUR ---
Patient in room PCU 3021. I have received report from GRISEL St and had the opportunity to ask questions and assume patient care.
--- NOTE | 2022-12-06 18:33 | NUR ---
agree with acute dialysis nurse am assessment
[2022-12-06] MEDS: HYDROcodone/acetaminophen 5mg/325mg tablet PO PRN (19:03)
[2022-12-06 22:00] VITALS: BP 141/63
[2022-12-07] MEDS: ceFOXitin inj 1,000 MG in normal saline 100ml IV soln 100 ML IV SCH ×2 (00:02→07:24)
[2022-12-07] MEDS: HYDROcodone/acetaminophen 5mg/325mg tablet PO PRN (01:41)
[2022-12-07] MEDS: normal saline 1000ml 1,000 ML IV SCH ×2 (01:42→08:27)
[2022-12-07 02:00] VITALS: BP 134/64
[2022-12-07] MEDS: mag hydrox/Alum hydrox/simeth 30ml oral suspension PO PRN ×3 (05:14→21:42)
--- NOTE | 2022-12-07 06:26 | NUR ---
Problems reprioritized. Patient report given, questions answered & plan of care reviewed with SHYANN Hagan. Addendum: 12/07/22 at 0630 by Kristin Hemphill RN Problems reprioritized. Patient report given, questions answered & plan of care reviewed with GRISEL St.
[2022-12-07 06:58] VITALS: BP 134/64
[2022-12-07 07:20] LABS: BASOPHILS % (AUTO) 0.1 % (0-1); EOSINOPHILS % (AUTO) 0.1 % (0-6); HEMATOCRIT 33.6 % (42.0-52.0); HEMOGLOBIN 11.1 g/dl (14.0-17.9); LYMPHOCYTES # (AUTO) 0.9 X10'3 (1.1-4.8); LYMPHOCYTES % (AUTO) 5.3 % (21-51); MEAN CORPUSCULAR HEMOGLOBIN 30.6 PG (27.0-31.0); MEAN CORPUSCULAR HGB CONC 32.9 g/dL (33.0-36.5); MONOCYTES # (AUTO) 1.1 X10'3 (0-0.9); MONOCYTES % (AUTO) 6.2 % (2-12); NEUTROPHILS # (AUTO) 15.8 X10'3 (1.8-7.7); NEUTROPHILS % (AUTO) 88.3 % (42-75); PLATELET COUNT 213 X10'3 (140-440); RED BLOOD COUNT 3.61 X10'6 (4.70-6.10); RED CELL DISTRIBUTION WIDTH 14.7 % (11.5-14.5); WHITE BLOOD COUNT 17.9 X10'3 (4.5-11.0)
[2022-12-07] MEDS: buPROPion SR 150mg tablet PO SCH (07:23)
[2022-12-07] MEDS: pantoprazole 40mg Tablet.DR PO SCH (07:23)
[2022-12-07] MEDS: doxazosin mesylate 2mg tablet PO SCH (07:23)
[2022-12-07] MEDS: triamterene/HCTZ 37.5/25mg tablet PO SCH (07:23)
[2022-12-07] MEDS: docusate sod 100mg capsule PO SCH ×2 (07:24→19:35)
[2022-12-07] MEDS: enoxaparin 40mg/0.4ml syringe SUBCUT SCH (07:24)
[2022-12-07 07:34] LABS: ALANINE AMINOTRANSFERASE 184 U/L (12-78); ALBUMIN 2.2 G/DL (3.4-5.0); ALBUMIN/GLOBULIN RATIO 0.6 (1.1-1.5); ALKALINE PHOSPHATASE 403 IU/L (46-116); ANION GAP 9 (8-16); BILIRUBIN,TOTAL 0.6 MG/DL (0.1-1.0); BLOOD UREA NITROGEN 10 MG/DL (7-18); BUN/CREATININE RATIO 9.4 (10.0-20.0); CALCIUM 8.4 MG/DL (8.5-10.1); CHLORIDE 101 MMOL/L (99-107); CREATININE 1.06 MG/DL (0.60-1.10); GLUCOSE 75 MG/DL (70-104); LIPASE 239 U/L (73-393); MAGNESIUM 1.6 MG/DL (1.5-2.4); SODIUM 136 MMOL/L (135-145); TOTAL CARBON DIOXIDE 25.7 MMOL/L (24-32); TOTAL PROTEIN 6.2 G/DL (6.4-8.2); eGFR 69 ML/MIN
[2022-12-07 07:37] LABS: ASPARTATE AMINO TRANSFERASE 54 U/L (10-37)
[2022-12-07] MEDS: K and/or MAG REPLACEMENT MC SCH ×2 (08:00→19:36)
[2022-12-07] MEDS ORDERED: MOMETASONE FUROATE BOTHNARES SCH (08:00)
[2022-12-07] MEDS: acetaminophen 325mg tablet PO PRN ×2 (09:50→21:43)
[2022-12-07 11:21] VITALS: BP 116/52
--- NOTE | 2022-12-07 11:49 | NUR ---
AGREE WITH ARC AND GAS WELDER AM ASSESSMENT.
[2022-12-07] MEDS: metroNIDAZOLE-Flagyl 500mg/NS 100 ML IV SCH ×3 (13:55→23:59)
[2022-12-07 15:00] VITALS: BP 135/56
[2022-12-07] MEDS: folic acid 1mg tablet PO SCH (16:00)
[2022-12-07] MEDS: multivitamins, therapeutics tablet PO SCH (16:00)
[2022-12-07] MEDS: CefTRIAXone/D5W-Rocephin 1gm 50 ML IV SCH (16:34)
[2022-12-07 18:00] VITALS: BP 134/86
--- NOTE | 2022-12-07 18:14 | NUR ---
Problems reprioritized. Patient report given, questions answered & plan of care reviewed with Kristin Lima.
--- NOTE | 2022-12-07 18:20 | NUR ---
Patient in room PCU 3021. I have received report from GRISEL St and had the opportunity to ask questions and assume patient care.
[2022-12-07] MEDS: thiamine 100mg tablet PO SCH (19:35)
[2022-12-07 22:00] VITALS: BP 123/50
[2022-12-08 02:00] VITALS: BP 138/68
[2022-12-08] MEDS: ondansetron/PF 4mg/2ml inj IV PRN (03:11)
--- NOTE | 2022-12-08 06:34 | NUR ---
Problems reprioritized. Patient report given, questions answered & plan of care reviewed with GRISEL Kuhn.
--- NOTE | 2022-12-08 06:43 | NUR ---
Problems reprioritized. Patient report given, questions answered & plan of care reviewed with GRISEL Kuhn.
--- NOTE | 2022-12-08 06:55 | NUR ---
Patient in room PCU 3021. I have received report from Kristin BOOTHE and had the opportunity to ask questions and assume patient care.
[2022-12-08 07:00] VITALS: BP 146/58
[2022-12-08 07:04] LABS: BASOPHILS % (AUTO) 0.2 % (0-1); EOSINOPHILS # (AUTO) 0.1 X10'3 (0-0.9); EOSINOPHILS % (AUTO) 1.1 % (0-6); HEMATOCRIT 34.5 % (42.0-52.0); HEMOGLOBIN 11.4 g/dl (14.0-17.9); LYMPHOCYTES # (AUTO) 0.8 X10'3 (1.1-4.8); LYMPHOCYTES % (AUTO) 7.1 % (21-51); MEAN CORPUSCULAR HEMOGLOBIN 30.8 PG (27.0-31.0); MEAN CORPUSCULAR HGB CONC 33.2 g/dL (33.0-36.5); MEAN CORPUSCULAR VOLUME 92.6 FL (78-98); MEAN PLATELET VOLUME 7.3 FL (7.4-10.4); MONOCYTES # (AUTO) 0.7 X10'3 (0-0.9); MONOCYTES % (AUTO) 6.2 % (2-12); NEUTROPHILS # (AUTO) 9.6 X10'3 (1.8-7.7); NEUTROPHILS % (AUTO) 85.4 % (42-75); PLATELET COUNT 222 X10'3 (140-440); RED BLOOD COUNT 3.72 X10'6 (4.70-6.10); RED CELL DISTRIBUTION WIDTH 14.1 % (11.5-14.5); WHITE BLOOD COUNT 11.3 X10'3 (4.5-11.0)
[2022-12-08 07:23] LABS: ALANINE AMINOTRANSFERASE 133 U/L (12-78); ALBUMIN 2.4 G/DL (3.4-5.0); ALBUMIN/GLOBULIN RATIO 0.6 (1.1-1.5); ALKALINE PHOSPHATASE 341 IU/L (46-116); ANION GAP 8 (8-16); ASPARTATE AMINO TRANSFERASE 28 U/L (10-37); BILIRUBIN,TOTAL 0.4 MG/DL (0.1-1.0); BLOOD UREA NITROGEN 11 MG/DL (7-18); BUN/CREATININE RATIO 10.2 (10.0-20.0); CHLORIDE 101 MMOL/L (99-107); CREATININE 1.08 MG/DL (0.60-1.10); GLUCOSE 90 MG/DL (70-104); LIPASE 149 U/L (73-393); MAGNESIUM 1.7 MG/DL (1.5-2.4); POTASSIUM 3.5 MMOL/L (3.5-5.1); SODIUM 137 MMOL/L (135-145); TOTAL CARBON DIOXIDE 28.1 MMOL/L (24-32); TOTAL PROTEIN 6.7 G/DL (6.4-8.2); eGFR 67 ML/MIN
[2022-12-08] MEDS: docusate sod 100mg capsule PO SCH (08:00)
[2022-12-08] MEDS: K and/or MAG REPLACEMENT MC SCH (08:00)
[2022-12-08] MEDS: metroNIDAZOLE-Flagyl 500mg/NS 100 ML IV SCH (08:14)
[2022-12-08] MEDS: CefTRIAXone/D5W-Rocephin 1gm 50 ML IV SCH (08:19)
[2022-12-08] MEDS: pantoprazole 40mg Tablet.DR PO SCH (08:51)
[2022-12-08] MEDS: enoxaparin 40mg/0.4ml syringe SUBCUT SCH (08:51)
[2022-12-08] MEDS: buPROPion SR 150mg tablet PO SCH (08:51)
[2022-12-08] MEDS: multivitamins, therapeutics tablet PO SCH (08:51)
[2022-12-08] MEDS: folic acid 1mg tablet PO SCH (08:52)
[2022-12-08] MEDS: doxazosin mesylate 2mg tablet PO SCH (08:52)
[2022-12-08] MEDS: thiamine 100mg tablet PO SCH (08:52)
[2022-12-08] MEDS: triamterene/HCTZ 37.5/25mg tablet PO SCH (08:52)
[2022-12-08 10:00] VITALS: BP 125/60
[2022-12-08] MEDS ORDERED: METR-159 PO (11:38)
[2022-12-08] MEDS ORDERED: FOLI0.4T6 PO (11:38)
[2022-12-08] MEDS ORDERED: LACT1CAP74 PO (11:38)
[2022-12-08] MEDS ORDERED: MULT-25 PO (11:38)
[2022-12-08] MEDS ORDERED: CEFD300C3 PO (11:38)
[2022-12-08] MEDS ORDERED: THIA50TA10 PO (11:38)
--- NOTE | 2022-12-08 12:40 | NUR ---
Patient discharged home with all belongings and discharge instructions. IV removed and tele monitor removed and returned to television announcer. Escorted out via wheel chair and left in private vehicle.
== END 2022-12-08 12:40 | disposition home health service (06) | DRG 438 ==
LOC: ER 08:06 → ED HOLD 11:06 → EDBEDREQ 12-06 05:53 → PCU 3S 12-06 07:54
PROVIDERS: ADMIT Family Medicine; ATTEND Family Medicine
PROC: BW211ZZ Computerized Tomography (CT Scan) of Abdomen and Pelvis using Low Osmolar Contrast (ICD-10-PCS; principal; 2022-12-05)
DX: K85.20 Alcohol induced acute pancreatitis without necrosis or infection (principal); K83.1 Obstruction of bile duct; K57.90 Diverticulosis of intestine, part unspecified, without perforation or abscess without bleeding; E66.01 Morbid (severe) obesity due to excess calories; R74.01 Elevation of levels of liver transaminase levels; I10 Essential (primary) hypertension; K21.9 Gastro-esophageal reflux disease without esophagitis; F41.9 Anxiety disorder, unspecified; F32.A Depression, unspecified; Z90.49 Acquired absence of other specified parts of digestive tract; Z88.5 Allergy status to narcotic agent; Z88.1 Allergy status to other antibiotic agents; Z88.8 Allergy status to other drugs, medicaments and biological substances; Z79.899 Other long term (current) drug therapy; Z68.33 Body mass index [BMI] 33.0-33.9, adult; Z71.3 Dietary counseling and surveillance; Z71.41 Alcohol abuse counseling and surveillance of alcoholic
CPT/HCPCS: 36415; 74177; 74181; 80053; 81003; 83690; 83735; 84145; 84484; 85025; 87081; 99285; A4615; A6258; G0378; J0694; J0696; J1170; J1200; J1650; J2060; J2270; J2405; J2765; J3490; J7030; J7040; Q9967

== ENCOUNTER 2024-08-24 23:17 | Inpatient (IN) | payer MEDICARE, BC ==
[~2024-08-24] VITALS: Ht 182.9 cm; Wt 109.0 kg
[~2024-08-24 23:17] MED LIST changes: +BUPR-564 PO; -BUPR300T86 PO; -DOXA4TAB5 PO; +DOXA4TAB94 PO; -ERYT1OIN6 TOP; +LACT1CAP74 PO; -MELO-102 PO; +MOME17SP11 BOTHNARES; +MULT-25 PO; +THIA50TA10 PO
[2024-08-24 23:53] LABS: BASOPHILS % (AUTO) 0.2 % (0-1); EOSINOPHILS % (AUTO) 0 % (0-6); HEMATOCRIT 34.2 % (42.0-52.0); LYMPHOCYTES # (AUTO) 0.5 X10'3 (1.1-4.8); LYMPHOCYTES % (AUTO) 1.8 % (21-51); MEAN CORPUSCULAR HEMOGLOBIN 27.4 PG (27.0-31.0); MEAN CORPUSCULAR HGB CONC 32.3 g/dL (33.0-36.5); MEAN CORPUSCULAR VOLUME 84.9 FL (78-98); MEAN PLATELET VOLUME 6.6 FL (7.4-10.4); MONOCYTES # (AUTO) 1.7 X10'3 (0-0.9); MONOCYTES % (AUTO) 6.7 % (2-12); NEUTROPHILS # (AUTO) 23.3 X10'3 (1.8-7.7); NEUTROPHILS % (AUTO) 91.3 % (42-75); PLATELET COUNT 401 X10'3 (140-440); RED BLOOD COUNT 4.03 X10'6 (4.70-6.10); RED CELL DISTRIBUTION WIDTH 17.7 % (11.5-14.5)
[2024-08-25] VITALS (18 sets, daily range): BP systolic 92–114; BP diastolic 38–59; PULSE 94–111; RESP 16–28; TEMP 97.7–98.9; O2SAT 90–98
[2024-08-25 00:20] LABS: ALBUMIN 1.9 G/DL (3.4-5.0); ANION GAP 7 (8-16); BLOOD UREA NITROGEN 27 MG/DL (7-18); BUN/CREATININE RATIO 15.3 (10.0-20.0); CALCIUM 8.6 MG/DL (8.5-10.1); CHLORIDE 92 MMOL/L (99-107); CREATININE 1.77 MG/DL (0.60-1.10); GLUCOSE 124 MG/DL (70-104); POTASSIUM 4.2 MMOL/L (3.5-5.1); PRO BRAIN NATRIURETIC PEPTIDE 3016 PG/ML (0-125); SODIUM 129 MMOL/L (135-145); TOTAL CARBON DIOXIDE 30.3 MMOL/L (24-32); eCRCL 40 ML/MIN; eGFR 38 ML/MIN
[2024-08-25 00:23] LABS: WHITE BLOOD COUNT 25.5 X10'3 (4.5-11.0)
[2024-08-25 00:29] LABS: TOTAL CELLS COUNTED 100
[2024-08-25 00:30] LABS: PLATELET ESTIMATE NORMAL
[2024-08-25 00:31] LABS: ANISOCYTOSIS 1+
[2024-08-25] MEDS: vancomycin/NS 1 GM ADD-VANTAGE 250 ML X 1 DOSE IV ONE (01:03)
[2024-08-25] MEDS ORDERED: FINA5TAB11 PO (02:16)
[2024-08-25 02:19] LABS: APTT 34 SECONDS (22-32); INR 1.2 INR; PROTHROMBIN TIME 12.4 SECONDS (9.0-12.0)
[2024-08-25] MEDS ORDERED: MELO-102 PO (02:22)
[2024-08-25] MEDS ORDERED: POLY119P2 PO (02:22)
[2024-08-25] MEDS ORDERED: potassium Cl 40MEQ/1/2NS 520ml 520 ML IV PRN (02:45)
[2024-08-25] MEDS ORDERED: mag hydrox/Alum hydrox/simeth 30ml oral suspension PO PRN (02:45)
[2024-08-25] MEDS ORDERED: morphine 2 MG/ML inj. syringe IV PRN (02:45)
[2024-08-25] MEDS ORDERED: magnesium sulf-water 2g/50mL 50 ML IV PRN (02:45)
[2024-08-25] MEDS ORDERED: magnesium sulf-water 4G/100mL 100 ML IV PRN (02:45)
[2024-08-25] MEDS ORDERED: potassium Cl 20 mEq SR tablet PO PRN ×2 (02:45)
[2024-08-25] MEDS ORDERED: magnesium hydroxide 30ml (MOM) UD suspension PO PRN (02:45)
[2024-08-25] MEDS ORDERED: magnesium Cl slow-release 64mg tablet PO PRN (02:45)
[2024-08-25] MEDS: furosemide 10 MG/1 ML 10ml inj IV ONE (02:59)
[2024-08-25 03:44] LABS: BILIRUBIN,URINE SMALL (Neg); CLARITY,URINE CLEAR (Clear); COLOR,URINE YELLOW (Yellow); GLUCOSE, URINE NEGATIVE (Neg); KETONES,URINE TRACE mg/dl (Neg); LEUKOCYTE ESTERASE ,URINE NEGATIVE (Neg); NITRITES, URINE NEGATIVE (Neg); OCCULT BLOOD,URINE NEGATIVE (Neg); PROTEIN,URINE TRACE mg/dl (Neg)
[2024-08-25 03:55] LABS: UA COLLECTION TYPE URINAL
[2024-08-25 03:57] LABS: WBC,URINE 0-4 /HPF (0-4)
[2024-08-25 03:58] LABS: BACTERIA,URINE FEW /HPF (Neg); MUCUS STRANDS FEW /LPF (Neg); RBC,URINE NONE SEEN /HPF (0-2); SQUAMOUS EPITHELIAL CELL,UR FEW /LPF (FEW)
[2024-08-25] MEDS: ipratropium/albuterol 3ml nebule NEB SCH (04:23)
[2024-08-25 07:01] LABS: MAGNESIUM 1.2 MG/DL (1.5-2.4)
[2024-08-25 07:17] LABS: % IRON SATURATION 4 % (11-46); IRON 6 UG/DL (53-167); TOTAL IRON BINDING CAPACITY 169 UG/DL (259-388)
[2024-08-25 07:34] LABS: OSMOLALITY 275 MOSM/K (280-300)
[2024-08-25 07:42] LABS: HEMOGLOBIN A1C 5.6 % (4.5-6.2)
[2024-08-25] MEDS ORDERED: polyethylene glycol 3350 17gm powd pack PO SCH (08:00)
[2024-08-25] MEDS: fluticasone nasal spray 16GM bottle NS SCH (08:00)
[2024-08-25] MEDS: K and/or MAG REPLACEMENT MC SCH (08:00)
[2024-08-25] MEDS: pantoprazole 40mg Tablet.DR PO SCH (08:20)
[2024-08-25] MEDS: lactobacillus rhamnosus 10,000 MMU CELLS/CAPSULE PO SCH (08:20)
[2024-08-25] MEDS: multivitamins, therapeutics tablet PO SCH (08:20)
[2024-08-25] MEDS: thiamine 100mg tablet PO SCH (08:20)
[2024-08-25] MEDS: doxazosin mesylate 2mg tablet PO SCH (08:20)
[2024-08-25] MEDS: docusate sod 100mg capsule PO SCH (08:20)
[2024-08-25] MEDS: BUPROPION HCL 150MG XL 24 HR 150 MG TAB PO SCH (08:21)
[2024-08-25] MEDS: heparin, porcine 5000 units/ml vial SQ SCH (08:21)
[2024-08-25] MEDS: magnesium sulf-water 2g/50mL 50 ML IV ONE (08:21)
[2024-08-25 08:59] LABS: BASOPHILS % (AUTO) 0.1 % (0-1); EOSINOPHILS % (AUTO) 0 % (0-6); HEMATOCRIT 31.2 % (42.0-52.0); HEMOGLOBIN 10.2 g/dl (14.0-17.9); LYMPHOCYTES # (AUTO) 0.6 X10'3 (1.1-4.8); LYMPHOCYTES % (AUTO) 2.3 % (21-51); MEAN CORPUSCULAR HEMOGLOBIN 27.5 PG (27.0-31.0); MEAN CORPUSCULAR HGB CONC 32.8 g/dL (33.0-36.5); MEAN CORPUSCULAR VOLUME 83.9 FL (78-98); MONOCYTES # (AUTO) 1.7 X10'3 (0-0.9); MONOCYTES % (AUTO) 6.6 % (2-12); NEUTROPHILS # (AUTO) 22.9 X10'3 (1.8-7.7); PLATELET COUNT 383 X10'3 (140-440); RED BLOOD COUNT 3.72 X10'6 (4.70-6.10); RED CELL DISTRIBUTION WIDTH 17.7 % (11.5-14.5)
[2024-08-25 09:05] LABS: WHITE BLOOD COUNT 25.2 X10'3 (4.5-11.0)
[2024-08-25 09:06] LABS: ALANINE AMINOTRANSFERASE 24 U/L (12-78); ALBUMIN 1.7 G/DL (3.4-5.0); ALBUMIN/GLOBULIN RATIO 0.3 (1.1-1.5); ALKALINE PHOSPHATASE 76 IU/L (46-116); ANION GAP 12 (8-16); ASPARTATE AMINO TRANSFERASE 12 U/L (10-37); BILIRUBIN,TOTAL 0.8 MG/DL (0.1-1.0); BLOOD UREA NITROGEN 28 MG/DL (7-18); BUN/CREATININE RATIO 16.1 (10.0-20.0); CALCIUM 8.6 MG/DL (8.5-10.1); CHLORIDE 91 MMOL/L (99-107); CREATININE 1.74 MG/DL (0.60-1.10); GLUCOSE 119 MG/DL (70-104); SODIUM 131 MMOL/L (135-145); TOTAL CARBON DIOXIDE 27.9 MMOL/L (24-32); TOTAL PROTEIN 6.6 G/DL (6.4-8.2); eCRCL 41 ML/MIN; eGFR 39 ML/MIN
[2024-08-25 09:18] LABS: ANISOCYTOSIS 1+; PLATELET ESTIMATE NORMAL; TOTAL CELLS COUNTED 100
[2024-08-25] MEDS: vancomycin/NS 1 GM ADD-VANTAGE 250 ML IV SCH (09:48)
[2024-08-25] MEDS: piperacillin/tazo 3.375gm/50ml 50 ML IV SCH (09:48)
[2024-08-25] MEDS: LIDOcaine 1% (10mg/ml) 2ml vial ONE (10:23)
[2024-08-25] MEDS: LIDOcaine 1% 30ml preserv. free vial IJ STA (10:25)
[2024-08-25] MEDS: midazolam 1 mg/ML 2ml injection IV ONE (10:30)
[2024-08-25] MEDS: morphine 2 MG/ML inj. syringe IV PRN (10:55)
[2024-08-25] MEDS: midazolam 1 mg/ML 2ml injection ONE (11:01)
[2024-08-25] MEDS: polyethylene glycol 3350 17gm powd pack PO SCH (21:00)
[2024-08-26] VITALS (19 sets, daily range): BP systolic 95–106; BP diastolic 42–54; PULSE 73–100; RESP 15–22; TEMP 97.1–98.5; O2SAT 91–98
[2024-08-26] MEDS: HYDROcodone/acetaminophen 10/325mg tab PO PRN (03:30)
[2024-08-26] MEDS: benzonatate 100mg capsule PO PRN (03:31)
[2024-08-26 06:48] LABS: BASOPHILS % (AUTO) 0 % (0-1); EOSINOPHILS # (AUTO) 0.1 X10'3 (0-0.9); EOSINOPHILS % (AUTO) 0.6 % (0-6); HEMATOCRIT 26.9 % (42.0-52.0); HEMOGLOBIN 8.8 g/dl (14.0-17.9); LYMPHOCYTES # (AUTO) 0.6 X10'3 (1.1-4.8); LYMPHOCYTES % (AUTO) 3.7 % (21-51); MEAN CORPUSCULAR HEMOGLOBIN 27.5 PG (27.0-31.0); MEAN CORPUSCULAR HGB CONC 32.8 g/dL (33.0-36.5); MEAN CORPUSCULAR VOLUME 83.9 FL (78-98); MEAN PLATELET VOLUME 6.4 FL (7.4-10.4); MONOCYTES # (AUTO) 1.2 X10'3 (0-0.9); MONOCYTES % (AUTO) 7.5 % (2-12); NEUTROPHILS # (AUTO) 14.6 X10'3 (1.8-7.7); NEUTROPHILS % (AUTO) 88.2 % (42-75); PLATELET COUNT 346 X10'3 (140-440); RED BLOOD COUNT 3.21 X10'6 (4.70-6.10); RED CELL DISTRIBUTION WIDTH 18.1 % (11.5-14.5); WHITE BLOOD COUNT 16.5 X10'3 (4.5-11.0)
[2024-08-26 07:05] LABS: ALANINE AMINOTRANSFERASE 33 U/L (12-78); ALBUMIN 1.4 G/DL (3.4-5.0); ALBUMIN/GLOBULIN RATIO 0.3 (1.1-1.5); ALKALINE PHOSPHATASE 71 IU/L (46-116); ANION GAP 5 (8-16); ASPARTATE AMINO TRANSFERASE 29 U/L (10-37); BILIRUBIN,TOTAL 0.4 MG/DL (0.1-1.0); BLOOD UREA NITROGEN 25 MG/DL (7-18); BUN/CREATININE RATIO 22.1 (10.0-20.0); CALCIUM 8.2 MG/DL (8.5-10.1); CHLORIDE 94 MMOL/L (99-107); CHOL/HDL RATIO 2.5 (0.00-4.99); CHOLESTEROL 61 MG/DL (0-200); CREATININE 1.13 MG/DL (0.60-1.10); GLUCOSE 91 MG/DL (70-104); HDL CHOLESTEROL 24 MG/DL (35-60); LDL CHOLESTEROL 22 MG/DL (50-100); MAGNESIUM 1.5 MG/DL (1.5-2.4); POTASSIUM 3.6 MMOL/L (3.5-5.1); SODIUM 131 MMOL/L (135-145); TOTAL CARBON DIOXIDE 32.3 MMOL/L (24-32); TRIGLYCERIDES 50 MG/DL (20-135); eCRCL 63 ML/MIN; eGFR 63 ML/MIN
[2024-08-26] MEDS: normal saline 1000ml 1,000 ML IV SCH (09:12)
[2024-08-26 11:12] LABS: LDH,BODY FLUID 1399 U/L
[2024-08-26 11:27] LABS: GLUCOSE,BODY FLUID 0 MG/DL
[2024-08-26 11:35] LABS: BFAPPEAR CLOUDY; BFCOLOR YELLOW; BFSOURCE PLEURAL FLD
[2024-08-26 11:36] LABS: BF RBC COUNT 6750 /CU MM; BF WBC COUNT 19950 /CU MM (0-1000); BFVOLUME 11 ML; LYMPHOCYTES,BODY FLUID 2 %; MONOCYTES,BODY FLUID 15 %; NEUTROPHILS,BODY FLUID 83 %
[2024-08-26] MEDS: VANCOMYCIN LEVEL IV ONE (12:30)
[2024-08-26] MEDS: iron sucrose complex injection 300 MG in normal saline 250ml IV soln 250 ML IV SCH (17:10)
[2024-08-27] VITALS (31 sets, daily range): BP systolic 92–142; BP diastolic 34–87; PULSE 69–131; RESP 5–26; TEMP 97.1–97.4; O2SAT 74–99
[2024-08-27] MEDS: VANCOMYCIN/WATER FOR INJ (PEG) 1.25GM/250 ML IVPB IV SCH (00:06)
[2024-08-27] MEDS: acetaminophen 325mg tablet PO PRN (00:20)
[2024-08-27 07:16] LABS: BASOPHILS % (AUTO) 0.2 % (0-1); EOSINOPHILS # (AUTO) 0.1 X10'3 (0-0.9); EOSINOPHILS % (AUTO) 0.6 % (0-6); HEMOGLOBIN 8.8 g/dl (14.0-17.9); LYMPHOCYTES # (AUTO) 0.6 X10'3 (1.1-4.8); LYMPHOCYTES % (AUTO) 3.3 % (21-51); MEAN CORPUSCULAR HEMOGLOBIN 26.7 PG (27.0-31.0); MEAN CORPUSCULAR HGB CONC 31.5 g/dL (33.0-36.5); MEAN CORPUSCULAR VOLUME 84.9 FL (78-98); MEAN PLATELET VOLUME 6.3 FL (7.4-10.4); MONOCYTES # (AUTO) 1.1 X10'3 (0-0.9); MONOCYTES % (AUTO) 6.1 % (2-12); NEUTROPHILS # (AUTO) 16.8 X10'3 (1.8-7.7); NEUTROPHILS % (AUTO) 89.8 % (42-75); PLATELET COUNT 353 X10'3 (140-440); RED CELL DISTRIBUTION WIDTH 17.9 % (11.5-14.5); WHITE BLOOD COUNT 18.7 X10'3 (4.5-11.0)
[2024-08-27 07:50] LABS: ALANINE AMINOTRANSFERASE 44 U/L (12-78); ALBUMIN 1.3 G/DL (3.4-5.0); ALBUMIN/GLOBULIN RATIO 0.3 (1.1-1.5); ALKALINE PHOSPHATASE 79 IU/L (46-116); ANION GAP 6 (8-16); ASPARTATE AMINO TRANSFERASE 36 U/L (10-37); BILIRUBIN,TOTAL 0.2 MG/DL (0.1-1.0); BLOOD UREA NITROGEN 15 MG/DL (7-18); BUN/CREATININE RATIO 16.1 (10.0-20.0); CALCIUM 8.3 MG/DL (8.5-10.1); CHLORIDE 95 MMOL/L (99-107); CREATININE 0.93 MG/DL (0.60-1.10); GLUCOSE 87 MG/DL (70-104); MAGNESIUM 1.7 MG/DL (1.5-2.4); POTASSIUM 3.7 MMOL/L (3.5-5.1); SODIUM 131 MMOL/L (135-145); TOTAL CARBON DIOXIDE 29.8 MMOL/L (24-32); TOTAL PROTEIN 5.9 G/DL (6.4-8.2); eCRCL 76 ML/MIN; eGFR 79 ML/MIN
[2024-08-27] MEDS: MELOXICAM 7.5 MG TABLET PO SCH (09:19)
[2024-08-27] MEDS ORDERED: HYDROcodone/acetaminophen 10/325mg tab PO PRN (10:45)
[2024-08-27] MEDS: ondansetron/PF 4mg/2ml inj IV PRN (11:40)
[2024-08-27] MEDS: LIDOcaine 4% (40 mg/ml) topical solution 50ml MM ONE (11:45)
[2024-08-27] MEDS ORDERED: epiNEPHrine 1 mg/ml inj IR PRN (11:45)
[2024-08-27] MEDS: LIDOCAINE 4% (40MG/ML) topical solution 50ml **BRONCH ONLY ONE (11:55)
[2024-08-27] MEDS: epiNEPHrine 1 MG/ML 1 ml ampule **BRONCH ONLY ONE (11:55)
[2024-08-27] MEDS: MIDAZolam 1 MG/ML 5ML VIAL IV ONE (12:00)
[2024-08-27] MEDS: fentaNYL/PF 50MCG/1 ML 2ML syringe IV ONE ×2 (12:06→13:15)
[2024-08-27] MEDS: midazolam 1 mg/ML 2ml injection IV ONE (13:16)
[2024-08-27] MEDS ORDERED: ketorolac trometh 15mg/ml vial 15 MG/ML ML IM SCH (14:00)
[2024-08-27] MEDS: ketorolac trometh 15mg/ml vial 15 MG/ML ML IV SCH (14:18)
[2024-08-28] VITALS (18 sets, daily range): BP systolic 103–133; BP diastolic 40–88; PULSE 80–104; RESP 16–24; TEMP 97.5–99.3; O2SAT 92–97
[2024-08-28 07:05] LABS: BASOPHILS % (AUTO) 0.2 % (0-1); EOSINOPHILS # (AUTO) 0.1 X10'3 (0-0.9); EOSINOPHILS % (AUTO) 0.3 % (0-6); HEMATOCRIT 27.8 % (42.0-52.0); HEMOGLOBIN 8.7 g/dl (14.0-17.9); LYMPHOCYTES # (AUTO) 0.6 X10'3 (1.1-4.8); LYMPHOCYTES % (AUTO) 2.8 % (21-51); MEAN CORPUSCULAR HEMOGLOBIN 26.7 PG (27.0-31.0); MEAN CORPUSCULAR HGB CONC 31.5 g/dL (33.0-36.5); MEAN CORPUSCULAR VOLUME 84.8 FL (78-98); MEAN PLATELET VOLUME 6.4 FL (7.4-10.4); MONOCYTES # (AUTO) 1.1 X10'3 (0-0.9); MONOCYTES % (AUTO) 5.5 % (2-12); NEUTROPHILS # (AUTO) 18.9 X10'3 (1.8-7.7); NEUTROPHILS % (AUTO) 91.2 % (42-75); PLATELET COUNT 392 X10'3 (140-440); RED BLOOD COUNT 3.27 X10'6 (4.70-6.10); RED CELL DISTRIBUTION WIDTH 18.1 % (11.5-14.5); WHITE BLOOD COUNT 20.7 X10'3 (4.5-11.0)
[2024-08-28 07:50] LABS: ALANINE AMINOTRANSFERASE 50 U/L (12-78); ALBUMIN 1.3 G/DL (3.4-5.0); ALBUMIN/GLOBULIN RATIO 0.3 (1.1-1.5); ALKALINE PHOSPHATASE 89 IU/L (46-116); ANION GAP 10 (8-16); ASPARTATE AMINO TRANSFERASE 36 U/L (10-37); BILIRUBIN,TOTAL 0.3 MG/DL (0.1-1.0); BLOOD UREA NITROGEN 17 MG/DL (7-18); CALCIUM 8.8 MG/DL (8.5-10.1); CHLORIDE 96 MMOL/L (99-107); CREATININE 1.06 MG/DL (0.60-1.10); GLUCOSE 86 MG/DL (70-104); MAGNESIUM 1.8 MG/DL (1.5-2.4); POTASSIUM 3.5 MMOL/L (3.5-5.1); SODIUM 134 MMOL/L (135-145); TOTAL CARBON DIOXIDE 27.8 MMOL/L (24-32); TOTAL PROTEIN 6.3 G/DL (6.4-8.2); eCRCL 67 ML/MIN; eGFR 68 ML/MIN
[2024-08-28] MEDS: VANCOMYCIN LEVEL IV ONE (13:20)
[2024-08-28] MEDS: HYDROcodone/acetaminophen 5mg/325mg tablet PO PRN (23:52)
[2024-08-29] VITALS (11 sets, daily range): BP systolic 109; BP diastolic 51; PULSE 73–87; RESP 18–22; TEMP 97.1; O2SAT 92–98
[2024-08-29] MEDS: vancomycin/NS 1 GM ADD-VANTAGE 250 ML IV SCH (01:23)
[2024-08-29 07:33] LABS: BASOPHILS % (AUTO) 0.2 % (0-1); EOSINOPHILS # (AUTO) 0.2 X10'3 (0-0.9); EOSINOPHILS % (AUTO) 1.1 % (0-6); HEMATOCRIT 28.7 % (42.0-52.0); HEMOGLOBIN 9.1 g/dl (14.0-17.9); LYMPHOCYTES # (AUTO) 1.1 X10'3 (1.1-4.8); LYMPHOCYTES % (AUTO) 6.6 % (21-51); MEAN CORPUSCULAR HGB CONC 31.6 g/dL (33.0-36.5); MEAN CORPUSCULAR VOLUME 85.4 FL (78-98); MEAN PLATELET VOLUME 6.3 FL (7.4-10.4); MONOCYTES # (AUTO) 1.1 X10'3 (0-0.9); MONOCYTES % (AUTO) 6.6 % (2-12); NEUTROPHILS # (AUTO) 13.8 X10'3 (1.8-7.7); NEUTROPHILS % (AUTO) 85.5 % (42-75); PLATELET COUNT 424 X10'3 (140-440); RED BLOOD COUNT 3.36 X10'6 (4.70-6.10); RED CELL DISTRIBUTION WIDTH 18.2 % (11.5-14.5); WHITE BLOOD COUNT 16.1 X10'3 (4.5-11.0)
[2024-08-29 07:34] LABS: ALANINE AMINOTRANSFERASE 55 U/L (12-78); ALBUMIN 1.3 G/DL (3.4-5.0); ALBUMIN/GLOBULIN RATIO 0.2 (1.1-1.5); ALKALINE PHOSPHATASE 92 IU/L (46-116); ANION GAP 8 (8-16); ASPARTATE AMINO TRANSFERASE 35 U/L (10-37); BILIRUBIN,TOTAL 0.2 MG/DL (0.1-1.0); BLOOD UREA NITROGEN 16 MG/DL (7-18); BUN/CREATININE RATIO 16.3 (10.0-20.0); CALCIUM 8.7 MG/DL (8.5-10.1); CHLORIDE 98 MMOL/L (99-107); CREATININE 0.98 MG/DL (0.60-1.10); GLUCOSE 98 MG/DL (70-104); MAGNESIUM 1.7 MG/DL (1.5-2.4); POTASSIUM 3.4 MMOL/L (3.5-5.1); SODIUM 135 MMOL/L (135-145); TOTAL CARBON DIOXIDE 29.4 MMOL/L (24-32); TOTAL PROTEIN 6.6 G/DL (6.4-8.2); eCRCL 73 ML/MIN; eGFR 75 ML/MIN
[2024-08-29 09:41] LABS: ANISOCYTOSIS 2+; PLATELET ESTIMATE NORMAL; TOTAL CELLS COUNTED 100
[2024-08-29 09:42] LABS: POLYCHROMASIA FEW
[2024-08-29] MEDS ORDERED: potassium Cl 40MEQ/1/2NS 520ml 520 ML IV PRN (12:55)
[2024-08-29] MEDS ORDERED: potassium Cl 20 mEq SR tablet PO PRN (12:55)
[2024-08-29] MEDS: potassium Cl 20 mEq SR tablet PO PRN (13:21)
[2024-08-29] MEDS ORDERED: piperacillin/tazo 4.5gm/100ml 100 ML IV SCH (16:00)
[2024-08-30] MEDS ORDERED: VANCOMYCIN LEVEL IV ONE (12:30)
== END 2024-08-29 16:20 | DRG 871 ==
LOC: ER 23:18 → ED HOLD 08-25 01:48 → PCU 3S 08-25 07:36 → CICU 2S 08-25 10:09 → PCU 3S 08-25 13:46
PROVIDERS: ADMIT Internal Medicine Critical Care Medicine; ATTEND Family Medicine
PROC: 0W9B00Z Drainage of Left Pleural Cavity with Drainage Device, Open Approach (ICD-10-PCS; principal; 2024-08-25)
PROC: 0BJ08ZZ Inspection of Tracheobronchial Tree, Via Natural or Artificial Opening Endoscopic (ICD-10-PCS; 2024-08-27)
DX: A41.9 Sepsis, unspecified organism (principal); J15.9 Unspecified bacterial pneumonia; J96.01 Acute respiratory failure with hypoxia; N17.0 Acute kidney failure with tubular necrosis; J86.9 Pyothorax without fistula; J90 Pleural effusion, not elsewhere classified; E87.1 Hypo-osmolality and hyponatremia; N40.0 Benign prostatic hyperplasia without lower urinary tract symptoms; F32.A Depression, unspecified; N18.2 Chronic kidney disease, stage 2 (mild); K21.9 Gastro-esophageal reflux disease without esophagitis; E83.42 Hypomagnesemia; D64.9 Anemia, unspecified; I12.9 Hypertensive chronic kidney disease with stage 1 through stage 4 chronic kidney disease, or unspecified chronic kidney disease; Z88.1 Allergy status to other antibiotic agents; Z88.5 Allergy status to narcotic agent; Z88.8 Allergy status to other drugs, medicaments and biological substances; Z87.891 Personal history of nicotine dependence; Z85.828 Personal history of other malignant neoplasm of skin; Z79.899 Other long term (current) drug therapy; Z90.49 Acquired absence of other specified parts of digestive tract; Z93.3 Colostomy status
CPT/HCPCS: 31645; 32557; 36415; 71045; 71250; 80048; 80053; 80061; 80202; 81001; 82570; 82607; 82945; 82948; 83036; 83540; 83550; 83605; 83615; 83735; 83880; 83930; 83935; 84133; 84145; 84157; 84300; 84484; 85007; 85025; 85610; 85730; 87040; 87070; 87075; 87081; 87102; 87207; 89051; 93005; 93308; 94640; 94664; 94668; 94760; 97110; 97116; 97161; 97530; 99291; A4620; A4624; A6212; A6213; A6250; A6258; A6449; A6590; G0378; J1644; J1756; J1885; J1940; J2003; J2250; J2270; J2405; J2543; J3010; J3370; J3372; J7030; J7040; J7050

== ENCOUNTER 2024-10-10 17:51 | Inpatient (IN) | payer MEDICARE, BC ==
[~2024-10-10] VITALS: Ht 182.9 cm; Wt 93.0 kg
[~2024-10-10 17:51] MED LIST changes: -ACET-1025 PO; +ALBU90AE3 IH; +BUPR-480 PO; -BUPR-564 PO; +FINA5TAB11 PO; -FLUT16SP2 BOTHNARES; -LACT1CAP74 PO; -MOME17SP11 BOTHNARES; +POLY119P2 PO; +TEST60GE3 TP; +THIA100T70 PO; -THIA50TA10 PO; -TRIA1CAP88 PO
--- NOTE | 2024-10-10 18:28 | Physician Documentation ---
History of Present Illness ~ Chief Complaint: Abscess Stated Complaint: ABSCESS Time Seen by MD: 18:08 Primary Medical Doctor: Boarding Specialist MILADIS This is a very pleasant 74-year-old gentleman with a recent history of pneumonia, parapneumonic effusion, status post intubation, extubation, comes in from [facility] for evaluation of swelling, pain and redness in his left axilla/left-sided chest wall with a concern for a large abscess. Has been present for several days, no obvious trigger provocation. The particular palliating factors. Aggravated by palpation. Denies any fever or chills. Denies any cough. Denies chest pain. Record review for [facility] indicates that the gentleman is full code. H and P from from the outside facility states this is a 74-year-old male who was transferred to [facility] from [facility]. He was transferred initially to [facility] because of the pneumonia complicated with parapneumonic effusion. He has a chest tube in place. The chest tube was malfunction of the x-ray showed a white out of his lung. The patient was transferred to [facility] where he has a left thoracotomy with decortication on September 08, 2024 and he was extubated on September 12, 2024 it is nonradiating intubated on September 13, 2024. To be NSTEMI and G-tube was placed on 09/15/[address] Ryan. His chest tube was riding a 09/19/2024 from the right side and from the left-sided chest tube was removed before [id number]. The patient was transferred to our facility for further management. He had culture positive for E coli and was started on mirror panel which he is continuing for another two weeks. He is status post decannulation. His past medical history according to outside records is notable for BPH, high blood pressure, skin cancer, osteoarthritis, anemia and depression. Surgical history notable for cholecystectomy, abdominal hernia repair with a mesh, colec sarah, and knee surgery. Tetanus Within 5 Years: No Medication Reconciliation Allergies: Coded Allergies: ceftriaxone (Verified Allergy, Mild, 08/24/24) metronidazole (Verified Allergy, Unknown, 08/24/24) RAsh amoxicillin (Verified Adverse Reaction, Unknown, NAUSEA, 08/24/24) Tolerating Zosyn during hospital stay 05/18 clavulanic acid (Verified Adverse Reaction, Unknown, NAUSESA, 08/24/24) codeine (Verified Adverse Reaction, Unknown, STOMACH UPSET, 09/24/24) Scheduled Bupropion HCl (Bupropion Xl), 1 TAB PO DAILY, (Reported) Doxazosin Mesylate (Doxazosin Mesylate), 1 TAB PO DAILY, (Reported) Finasteride (PROSCAR tablet), 5 MG PO DAILY, (Reported) Multivitamin with Folic Acid (Thera Tablet), 1 EACH PO DAILY Omeprazole (Prilosec), 1 CAP PO DAILY, (Reported) Polyethylene Glycol 3350 (Miralax), 17 GM PO DAILY, (Reported) Testosterone (Testosterone), 1 PUMP TP QAM, (Reported) Thiamine Mononitrate (Vitamin B-1), 1 TAB PO DAILY, (Reported) Scheduled PRN Albuterol Sulfate (Proair Digihaler), 2 PUFFS IH Q6H PRN for SOB or wheezing, (Reported) Past Medical History Past Medical History: Diverticulitis, BPH, Hernia, Arthritis, *CANCER*, Depression Past Surgical History: abdominal surgery, cholecystectomy Other Past Surgical History: hernia repair Patient History: FH: heart attack Alcohol Use: None Drug Use: none Lives In: Home Review of Systems ROS 10 point review of systems was performed and unless noted above in HPI is negative for acute process/complaint. Physical Exam Vital Signs: Temperature: 99.2, Source: Oral, Heart Rate: 99, Respiratory Rate: 16, BP: 113/68, Pulse Oximetry: 96, Weight: 200.000 Physical Exam GENERAL: Awake, alert, oriented, GCS 15, no apparent distress, non-toxic appearing, answers questions, follows commands appropriately. Examined in bed 6., accompanied by HEENT: Atraumatic, normocephalic, pupils equal, extraocular muscles intact, sclerae anicteric, mucus membranes moist, oropharynx is clear, no stridor. NECK: supple, full active range of motion, trachea midline, no thyromegaly, no lymphadenopathy, no JVD. CARDIOVASCULAR: regular rate/rhythm, no murmurs/gallops/rubs, Pulses are 2+ in all extremities and symmetric. Capillary refill less than 2 seconds. PULMONARY: Nonlabored, good air movement ,no respiratory distress, speaking in full sentences, clear to auscultation bilaterally, no wheezing, no ronchi, no rales, no accessory muscle use. GASTROINTESTINAL: Soft, non-tender, non-distended, normal active bowel sounds, no organomegaly, no pulsatile masses, no CVA tenderness. NEUROLOGIC: Lucid with normal mental status. Normal facial symmetry. Moves all extremities symmetrically and with purpose. No truncal ataxia. Speech is fluid without evidence of dysarthria or aphasia, no focal deficits appreciated. MUSCULOSKELETAL: There is full range of motion of all extremities. There is no joint pain or joint swelling or joint erythema. There is no muscle pain or t enderness or swelling. EXTREMITIES: warm, well-perfused, no cyanosis, no clubbing, no edema, no acute deformities. Skin: warm, dry, no rashes or lesions, no jaundice, no petechiae orpurpura. No ecchymosis. PSYCHIATRIC: Normal affect, normal insight, normal concentration. Focused exam: Swelling, erythema, tenderness that is approximately 20 cm in diameter on his left lateral chest wall over ribs two through five Progress Results/Orders Results/Orders Orders - CARLOS IZQUIERDO DO Culture Blood (10/10/24 18:19) Ct Chest (10/10/24 18:30) Hs Troponin I W Calculations (10/10/24 20:19) Completed Orders - CARLOS IZQUIERDO DO Electrocardiogram (10/10/24 18:19) Cbc/Diff (10/10/24 18:19) ESR (10/10/24 18:19) C-Reactive Protein (10/10/24 18:19) PBNP (10/10/24 18:19) MG (10/10/24 18:19) Ct Chest (10/10/24 18:30) CMP (10/10/24 18:19) Hs Troponin I W Calculations (10/10/24 18:19) Lacticsepsis (10/10/24 18:19) Vancomycin 1gm 200ml H20 (Peg) (Vancomyc (10/10/24 18:35) Normal Saline 1000ml (Sodium Chloride 10 (10/10/24 18:35) Iohexol 300mg/Ml 100ml Inj. (Omnipaque-3 (10/10/24 18:31) Vancomycin/Ns 1 Gm Add-[place] (Vancomyc (10/10/24 18:37) Meropenem 1gm/Nacl 50ml Ivpb (Meropenem- (10/10/24 00:00) Meropenem 1gm/Nacl 50ml Ivpb (Meropenem- (10/10/24 19:19) Medications Received in ER Medications (Trade) Dose Ordered Sig/Rudy Route PRN Reason Start Time Stop Time Status Last Admin Dose Admin (sodium chloride 1000ml IV soln) 1,000 ml ONCE ONCE IVB 10/10/24 18:35 10/10/24 18:36 DC 10/10/24 19:29 1,000 ML Vancomycin HCl 250 ml @ 166.236 mls/hr ONCE ONCE IV 10/10/24 18:37 10/10/24 20:05 DC 10/10/24 20:31 166.236 MLS/HR Vital Signs 10/10/24 10/10/24 10/10/24 17:59 18:21 20:12 Temp 99.2 99.2 Pulse 99 98 94 Resp 16 28 21 B/P (MAP) 113/68 127/59 (81) 117/95 (102) Pulse Ox 96 93 94 O2 Flow Rate 1.0 2.0 Laboratory Tests Test 10/10/24 18:34 White Blood Count 12.8 H Red Blood Count 3.43 L Hemoglobin 10.5 L Hematocrit 31.9 L Mean Corpuscular Volume 93.0 Mean Corpuscular Hemoglobin 30.6 Mean Corpuscular Hemoglobin Concent 33.0 Red Cell Distribution Width 17.3 H Platelet Count 320 Mean Platelet Volume 6.9 L Neutrophils (%) (Auto) 84.1 H Lymphocytes (%) (Auto) 8.1 L Monocytes (%) (Auto) 7.0 Eosinophils (%) (Auto) 0.5 Basophils (%) (Auto) 0.3 Neutrophils # (Auto) 10.8 H Lymphocytes # (Auto) 1.0 L Monocytes # (Auto) 0.9 Eosinophils # (Auto) 0.1 Basophils # (Auto) 0.0 CBC Comment Erythrocyte Sedimentation Rate 97 H Sodium Level 138 Potassium Level 4.3 Chloride Level 98 L Carbon Dioxide Level 32.4 H Anion Gap 8 Blood Urea Nitrogen 11 Creatinine 0.79 Estimated GFR/1.73 m2 > 90 BUN/Creatinine Ratio 13.9 Glucose Level 92 Lactic Acid Level 1.0 Calcium Level 8.8 Magnesium Level 1.6 Total Bilirubin 0.4 Aspartate Amino Transf (AST/SGOT) 29 Alanine Aminotransferase (ALT/SGPT) 44 Alkaline Phosphatase 91 Troponin I High Sensitivity 8 C-Reactive Protein 24.69 H Pro-B-Type Natriuretic Peptide 366 H Total Protein 6.8 Albumin 1.7 L Globulin 5.1 H Albumin/Globulin Ratio 0.3 L Chemistry Comments Microbiology Date/Time Source Procedure Growth Status 10/10/24 18:34 Blood Arm Left Blood Culture - Preliminary NEGATIVE (LESS THAN 24 HOURS) Resulted EKG/XRAY/CT/US/VASC/MRI EKG : Additional Comment EKG was obtained at my request and interpreted by myself shows sinus rhythm of 97, first-degree AV block, wide QRS with a right bundle, no QT prolongation, left axis deviation, no evidence of STEMI. Medical Decision Making Findings Facility Status: ED Holds, E process The plan was discussed with the patient, who demonstrates clear understanding of the plan and is in agreement with the plan unless otherwise noted in the chart. All questions have been answered, all concerns were addressed unless otherwise documented. I was available throughout their ED stay for frequent reassessment and questions. Differential Diagnoses (considered and possible or likely): [Cellulitis, abscess, necrotizing infection, empyema, pleural cutaneous fistula] ??Differential Diagnoses (considered and unlikely, not requiring evaluation currently): [No evidence of traumatic injury] MDM Data Please see [facility] for the following: Independent Historians and external Records Review. Historian: [Patient] Independent Historians: ?[Record review] Medication Management: [Reviewed medication list] Social History and determinants: [Reviewed] Please see the body of the note for the following: Any independent interpretations of ECG, imaging studies. All vitals signs/haemodynamics, ordered tests were independently reviewed and interpreted by myself. 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 Mild leukocytosis with a any 4% neutrophils noted. Elevation of inflammatory markers is also noted. CT notable for with the radiology read as a hemothorax, can not rule out empyema.] Tests considered but not ordered include: [Not applicable] Social Determinants of Health Impact: Patient was evaluated in [facility], [facility] [place] to healthcare due to below par ratio of patient to medical providers. [] Comorbid Conditions Impacting Present Evaluation and Care/Treatment: [History of empyema] Management Discussions with other Healthcare Providers: [Dr. Nava, who kindly agreed to see patient in the morning Hospitalist regarding admission] Treatment and Disposition Medication Management (Given or considered): []. See EMR for details Consideration for Hospitalization/Escalation/Deescalation of Care: Admission for observation has been considered, and it is necessary for further management of his empyema communicating with his chest wall. ?ED Course:?[No clinical deterioration] ?Shared decision making:?[] Code status:?FULL Please see the full Electronic Medical Record for full details of nursing documentation, medications list, other records of complete past medical history and conditions, vital signs, laboratory studies, and any radiologic study interpretations by radiologists. Portions of this note were completed using [employer] dictation software and as a result there may exist minor errors in spelling. I have reviewed elements of past family and social history and agree as included in note. Departure Disposition: 09 ADMITTED INPATIENT Admitted to Inpatient Unit: to hospitalist Impression: Primary Impression: Empyema of left pleural space Additional Impressions: Chest wall abscess Cellulitis of chest wall Condition: Stable Referrals: NO PRIMARY CARE PROVIDER (PCP) Signature Scribe Signature: No scribe Attestation: This note accurately reflects clinical decisions, work performed by myself, DO TIMBO Frazier NICHOLAS M DO October 10, 2024 18:28
[2024-10-10] MEDS ORDERED: iohexol 300mg/ml 100ml inj. ONE (18:31)
--- NOTE | 2024-10-10 18:34 | ELECTROCARDIOGRAPH REPORT ---
[facility] Test Date: 2024-10-10 Test Time: 18:32:40 Pat Name: TERA GIMENEZ Department: [facility] Patient ID: [facility]-[id number] Room: [facility] 2005 Gender: M Clinical Staff Anesthesiologist: : 1950 Requested By: CARLOS IZQUIERDO Order Number: [id number] Reading MD: Dr. Tej Chen Measurements Intervals Home Rate: 97 P: 30 LA: 238 QRS: -33 QRSD: 155 T: 2 QT: 364 QTc: 463 Interpretive Statements Sinus rhythm Prolonged LA interval Right bundle branch block Electronically Signed On 10-11-2024 17:20:[address] Tej Chen Please click the below link to view image of tracing.
[2024-10-10] MEDS ORDERED: VANCOMYCIN 1GM 200ML H20 (PEG) 200 ML IV ONE (18:35)
[2024-10-10 18:58] LABS: BASOPHILS % (AUTO) 0.3 % (0-1); EOSINOPHILS # (AUTO) 0.1 X10'3 (0-0.9); EOSINOPHILS % (AUTO) 0.5 % (0-6); HEMATOCRIT 31.9 % (42.0-52.0); HEMOGLOBIN 10.5 g/dl (14.0-17.9); LYMPHOCYTES % (AUTO) 8.1 % (21-51); MEAN CORPUSCULAR HEMOGLOBIN 30.6 PG (27.0-31.0); MEAN PLATELET VOLUME 6.9 FL (7.4-10.4); MONOCYTES # (AUTO) 0.9 X10'3 (0-0.9); NEUTROPHILS # (AUTO) 10.8 X10'3 (1.8-7.7); NEUTROPHILS % (AUTO) 84.1 % (42-75); PLATELET COUNT 320 X10'3 (140-440); RED BLOOD COUNT 3.43 X10'6 (4.70-6.10); RED CELL DISTRIBUTION WIDTH 17.3 % (11.5-14.5); WHITE BLOOD COUNT 12.8 X10'3 (4.5-11.0)
[2024-10-10 19:17] LABS: ALANINE AMINOTRANSFERASE 44 U/L (12-78); ALBUMIN 1.7 G/DL (3.4-5.0); ALBUMIN/GLOBULIN RATIO 0.3 (1.1-1.5); ALKALINE PHOSPHATASE 91 IU/L (46-116); ANION GAP 8 (8-16); ASPARTATE AMINO TRANSFERASE 29 U/L (10-37); BILIRUBIN,TOTAL 0.4 MG/DL (0.1-1.0); BLOOD UREA NITROGEN 11 MG/DL (7-18); BUN/CREATININE RATIO 13.9 (10.0-20.0); CALCIUM 8.8 MG/DL (8.5-10.1); CHLORIDE 98 MMOL/L (99-107); CREATININE 0.79 MG/DL (0.60-1.10); GLUCOSE 92 MG/DL (70-104); POTASSIUM 4.3 MMOL/L (3.5-5.1); SODIUM 138 MMOL/L (135-145); TOTAL CARBON DIOXIDE 32.4 MMOL/L (24-32); TOTAL PROTEIN 6.8 G/DL (6.4-8.2); eCRCL 90 ML/MIN; eGFR > 90 ML/MIN
[2024-10-10 19:25] LABS: C-REACTIVE PROTEIN 24.69 MG/DL (0.0-0.5); MAGNESIUM 1.6 MG/DL (1.5-2.4); PRO BRAIN NATRIURETIC PEPTIDE 366 PG/ML (0-125)
[2024-10-10] MEDS: MEROPENEM 1GM/NACL 50ML IVPB 50 ML IV ONE ×2 (19:28→19:30)
[2024-10-10] MEDS: normal saline 1000ML IV soln IVB ONE (19:29)
[2024-10-10] MEDS: vancomycin/NS 1 GM ADD-VANTAGE 250 ML IV ONE (20:31)
--- NOTE | 2024-10-10 20:38 | RADIOLOGY REPORT ---
Clinical History L axillae swelling, hx of effusion/empyema, ?recurrence/abscess Comparison CT CHEST W on 09/18/2024, 437 images. XR CHEST on 09/25/204, 1 images. Technique: All CT scans at this medical facility are performed using dose modulation techniques as appropriate t o a performed exam including the following: Automated exposure control was utilized; adjustment of th e mA and/or kV according to patient size; and use of iterative reconstruction technique. All CT studies are reported to the Dose Index Registry of the [employer]. Contrast: OMNIPAQUE 300, 100ML Radiation Dose: CTDI (mGy): 18.68; DLP (mGy-cm): 764.69 TERA GIMENEZ, [id number] TECHNIQUE: Volumetric CT acquisition of the chest was obtained from the thoracic inlet to the upper a bdomen. Coronal and sagittal reconstructed images are provided. FINDINGS: LUNGS/AIRWAYS/PLEURA: Central airways are patent. There is a large complex left-sided pleural effusi on with hyperdensity and focus of air at the dependent portion, consistent with hemothorax. The lona ection extends into the anterior left chest wall and axillary soft tissue, coming in with a large abs cess collection. There are areas of peripheral wall thickening. Underlying empyema cannot be exclud ed. Airspace consolidation at the left upper and no lobes could be consistent with compressive atele ctasis. Scarring at right lung base HEART/VESSELS: No pericardial effusion. Heart is normal in size. Normal course and caliber of the aor ta. LYMPH NODES/MEDIASTINUM: Enlarged mediastinal lymph nodes could be reactive. Visualized thyroid glan d is unremarkable. Esophagus is unremarkable. UPPER ABDOMEN: Status post cholecystectomy. PEG tube is seen. Left renal cyst. OSSEOUS STRUCTURES/SOFT TISSUES: No acute or aggressive osseous lesions. IMPRESSION: Large left-sided hemothorax with extension to a large soft tissue abscess within the left chest wall and axillary soft tissues. Areas of peripheral wall thickening. Underlying empyema cannot be exclud ed. Airspace consolidation at the left upper and no lobes could be consistent with compressive atelectasi s. This report was electronically signed by Se Carmona MD on 10/10/2024 8:35:13 PM.
[2024-10-10] MEDS ORDERED: mag hydrox/Alum hydrox/simeth 30ml oral suspension PO PRN (22:35)
[2024-10-10] MEDS ORDERED: magnesium sulf-water 4G/100mL 100 ML IV PRN (22:35)
[2024-10-10] MEDS ORDERED: acetaminophen 325mg tablet PO PRN (22:35)
[2024-10-10] MEDS ORDERED: magnesium Cl slow-release 64mg tablet PO PRN (22:35)
[2024-10-10] MEDS ORDERED: ondansetron/PF 4mg/2ml inj IV PRN (22:35)
[2024-10-10] MEDS ORDERED: HYDROcodone/acetaminophen 5mg/325mg tablet PO PRN (22:35)
[2024-10-10] MEDS ORDERED: potassium Cl 40MEQ/1/2NS 520ml 520 ML IV PRN (22:35)
[2024-10-10] MEDS ORDERED: potassium Cl 20 mEq SR tablet PO PRN ×2 (22:35)
[2024-10-10] MEDS ORDERED: magnesium hydroxide 30ml (MOM) UD suspension PO PRN (22:35)
[2024-10-10] MEDS ORDERED: magnesium sulf-water 2g/50mL 50 ML IV PRN (22:35)
[2024-10-10] MEDS: HYDROcodone/acetaminophen 10/325mg tab PO PRN (23:23)
[2024-10-10 23:42] LABS: BILIRUBIN,URINE NEGATIVE (Neg); CLARITY,URINE CLEAR (Clear); COLOR,URINE YELLOW (Yellow); GLUCOSE, URINE NEGATIVE (Neg); KETONES,URINE NEGATIVE (Neg); LEUKOCYTE ESTERASE ,URINE NEGATIVE (Neg); NITRITES, URINE NEGATIVE (Neg); OCCULT BLOOD,URINE NEGATIVE (Neg); PH,URINE 6.5 (4.8-8.0); PROTEIN,URINE TRACE mg/dl (Neg); UROBILINOGEN,URINE 0.2 E.U/dL (0.2-1.0)
[2024-10-10] MEDS ORDERED: HYDR0.5S2 (23:52)
[2024-10-10] MEDS ORDERED: HYDR-3972 PO (23:52)
[2024-10-10] MEDS ORDERED: LORA-268 PO (23:53)
[2024-10-10] MEDS ORDERED: MELA3CAP2 PO (23:55)
[2024-10-10] MEDS ORDERED: NYST15CR TOP (23:55)
[2024-10-10] MEDS ORDERED: DOCU-148 PO (23:56)
[2024-10-11] VITALS (19 sets, daily range): BP systolic 90–173; BP diastolic 43–73; PULSE 72–94; RESP 10–20; TEMP 97.9–99.2; O2SAT 95–100
[2024-10-11] LABS: UA COLLECTION TYPE URINAL
[2024-10-11 00:07] LABS: BACTERIA,URINE FEW /HPF (Neg); RBC,URINE 0-2 /HPF (0-2); SQUAMOUS EPITHELIAL CELL,UR NONE SEEN /LPF (FEW); WBC,URINE 0-4 /HPF (0-4)
--- NOTE | 2024-10-11 04:49 | HISTORY AND PHYSICAL-Residence ---
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 The patient was initially admitted in August of this year for community-acquired pneumonia and left-sided parapneumonic effusion, underwent chest tube placement without full evacuation and re-expansion by Dr. Benton. He also underwent bronchoscopy which did not show much mucus plugging. He was then discharged to [facility] on 08/29/2024 with chest tube and IV Zosyn. He came back to ED on 09/06/2024 after the chest tube was not draining and chest x-ray showing white out lung. In the at admission, he underwent thoracotomy with decortication of his left trapped lung on 09/08/2024. His chest tube was removed on 09/20/2024 and he was discharged to [facility] on 09/23/2024. The patient noticed a quarter sized abscess in his left axilla 4-5 days back which was tender to touch. It increased in size and is now covering all of his axilla and anterior chest wall till mid clavicular line. Reports pain of the abscess even with breathing. Denies fevers, chest pain, palpitations, shortness of breath, abdominal pain, vomiting, diarrhea, constipation, burning micturition. He reports nausea and mild cough. He does not report any pus discharge from the abscess. Allergies: Coded Allergies: ceftriaxone (Verified Allergy, Mild, 08/24/24) metronidazole (Verified Allergy, Unknown, 08/24/24) RAsh amoxicillin (Verified Adverse Reaction, Unknown, NAUSEA, 08/24/24) Tolerating Zosyn during hospital stay 05/18 clavulanic acid (Verified Adverse Reaction, Unknown, NAUSESA, 08/24/24) codeine (Verified Adverse Reaction, Unknown, STOMACH UPSET, 09/24/24) Home Medications Home Medications Active Thera Tablet (Multivitamin with Folic Acid) 400 Mcg Tablet 1 Each PO DAILY Reported Colace (Docusate Sodium) 100 Mg Capsule 1 Cap PO Q12H 30 Days Nystatin 100,000 Unit/Gram Cream.gm. 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 1 Pump TP QAM Proair Digihaler (Albuterol Sulfate) 90 Mcg Aer.pw.bas 2 Puffs IH Q6H PRN Miralax (Polyethylene Glycol 3350) 17 Gram/Dose Powder 17 Gm PO DAILY dissolve in water PROSCAR tablet (Finasteride) 5 Mg Tablet 5 Mg PO DAILY Prilosec (Omeprazole) 40 Mg Capsule 1 Cap PO DAILY Doxazosin Mesylate 4 Mg Tablet 1 Tab PO DAILY Bupropion Xl (Bupropion HCl) 300 Mg Tab.er.24h 1 Tab PO DAILY Past Medical History Past Medical History Left parapneumonic effusion s/p thoracotomy and decortication on 09/08/2024 Hypertension BPH Skin cancer Osteoarthritis Chronic anemia Depression Umbilical hernia s/p repair Past Surgical History Surgical History Comment Left lung thoracotomy with decortication 09/08/2024 Left chest tube placement on 08/25/2024, removal on 09/20/2024 Tracheostomy and PEG tube placement on 09/15/2024 Bronchoscopy on 08/27/20242012-knee meniscal surgery 2017-colectomy with the associated colostomy and reversal Double hernia repair with mesh Sinus surgery Cholecystectomy Family History Family History: FH: heart attack Past Social History Social History Comment Denies smoking, alcohol and illicit drug abuse. Ex-smoker, quit 20 years ago, 20 pack years. Patient coming from [facility]. 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 Alcohol Use: None Drug Use: None Lives In: Home ROS ROS Reviewed in full. Negative except for pertinent positives in HPI. Exam Vitals: Vital Signs Date Time Temp Pulse Resp B/P (MAP) Pulse Ox O2 Delivery O2 Flow Rate FiO2 10/11/24 02:05 Room Air 2.0 10/11/24 00:40 93 10/11/24 00:39 99.2 18 129/64 (85) 95 General: Elderly male, alert and oriented x4, not in acute distress Head: Normocephalic with an atraumatic Eyes: Pupils- 3mm, reacting to light, conjunctiva- anicteric Nose and throat: No polyps, septum- normal, no mucosal ulcers Neck: Supple, no lymphadenopathy, no carotid bruit Chest: Firm indurated abscess over left axilla and anterior and posterior chest wall till mid clavicular line, tender, erythematous, non fluctuating, no pus drainage, transverse surgical scar of previous thoracotomy seen Respiratory: Diminished breath sounds on left side Cardiac: S1-S2 heard, rhythm regular, no gallop/murmur Abdomen: non distended, no tenderness, no organomegaly, bowel sounds - heard Extremities: no clubbing, no pedal edema, no deformities, peripheral pulses - 2+ Skin: warm and dry, no rash, no purpura Neuro: No focal deficit, gross cranial nerve exam - normal Diagnostic Data Last Recorded Lab Results: 10/10/24183310/10/241833 Advance Care Planning Advanced Care plannin - 30 Minutes Additional Plan A 74-year-old male with past medical history of hypertension, left parapneumonic effusion s/p decortication and thoracotomy presented to the ED with complaints of chest wall abscess on the left side. He is being admitted into the hospital for further evaluation and management. Plan: Large left hemothorax Left chest wall abscess S/p thoracotomy and left lung decortication (09/08/2024) Leukocytosis 12.8, ESR 97, CRP 24.69, normal lactic acid, follow up with procalcitonin. Dr. Nava consulted by ER physician. He will evaluate the patient in the morning. Patient received meropenem and vancomycin in the ER. Started him on IV Zosyn and vancomycin for MRSA, Pseudomonas and anaerobic coverage. CT chest showed large left-sided hemothorax with the extension to large soft- tissue abscess within left chest wall and axillary soft tissues. Underlying empyema can not be ruled out. Chronic anemia Hemoglobin 10.5, stable from last admission. Continue to monitor hemoglobin. BPH Continue finasteride and doxazosin. Chronic depression Continue home Wellbutrin. Code Status: Full code DVT Prophylaxis: Heparin subQ Analgesia/Sedation: Tylenol Lines/Tubes: PIV Nutrition: Heart healthy diet PT: Ordered Disposition: We will admit the patient into [facility]. Continue IV antibiotics. Management per Dr. Nava. Trang Rosales MD Internal Medicine Resident PGY-1 Date of Service: October 11, 2024 Billing Provider: KARELY FONTANEZ MD,TRANG EDWARDS, RES October 11, 2024 04:49
[2024-10-11 04:54] LABS: BASOPHILS % (AUTO) 0.2 % (0-1); EOSINOPHILS # (AUTO) 0.1 X10'3 (0-0.9); EOSINOPHILS % (AUTO) 0.6 % (0-6); HEMATOCRIT 30.3 % (42.0-52.0); HEMOGLOBIN 9.8 g/dl (14.0-17.9); LYMPHOCYTES # (AUTO) 1.1 X10'3 (1.1-4.8); LYMPHOCYTES % (AUTO) 9.5 % (21-51); MEAN CORPUSCULAR HEMOGLOBIN 30.4 PG (27.0-31.0); MEAN CORPUSCULAR HGB CONC 32.4 g/dL (33.0-36.5); MEAN CORPUSCULAR VOLUME 93.7 FL (78-98); MEAN PLATELET VOLUME 6.8 FL (7.4-10.4); MONOCYTES # (AUTO) 0.9 X10'3 (0-0.9); MONOCYTES % (AUTO) 7.9 % (2-12); NEUTROPHILS # (AUTO) 9.7 X10'3 (1.8-7.7); NEUTROPHILS % (AUTO) 81.8 % (42-75); PLATELET COUNT 312 X10'3 (140-440); RED BLOOD COUNT 3.23 X10'6 (4.70-6.10); RED CELL DISTRIBUTION WIDTH 17.4 % (11.5-14.5); WHITE BLOOD COUNT 11.8 X10'3 (4.5-11.0)
[2024-10-11 05:18] LABS: ALANINE AMINOTRANSFERASE 36 U/L (12-78); ALBUMIN 1.5 G/DL (3.4-5.0); ALBUMIN/GLOBULIN RATIO 0.3 (1.1-1.5); ALKALINE PHOSPHATASE 83 IU/L (46-116); ANION GAP 6 (8-16); ASPARTATE AMINO TRANSFERASE 22 U/L (10-37); BILIRUBIN,TOTAL 0.4 MG/DL (0.1-1.0); BLOOD UREA NITROGEN 8 MG/DL (7-18); BUN/CREATININE RATIO 10.8 (10.0-20.0); CALCIUM 8.7 MG/DL (8.5-10.1); CHLORIDE 102 MMOL/L (99-107); CREATININE 0.74 MG/DL (0.60-1.10); GLUCOSE 83 MG/DL (70-104); MAGNESIUM 1.7 MG/DL (1.5-2.4); POTASSIUM 4.4 MMOL/L (3.5-5.1); SODIUM 140 MMOL/L (135-145); TOTAL PROTEIN 6.1 G/DL (6.4-8.2); eCRCL 96 ML/MIN; eGFR > 90 ML/MIN
--- NOTE | 2024-10-11 06:13 | RADIOLOGY REPORT ---
EXAM: XR Chest, 1 View CLINICAL INDICATION: PICC line confirmation TECHNIQUE: Frontal view of the chest. COMPARISON: DI CHEST,SINGLE VIEW on DOS: 09/25/24, DI CHEST,SINGLE VIEW on DOS: 09/22/24, DI CHEST,SI NGLE VIEW on DOS: 09/21/24, DI CHEST,SINGLE VIEW on DOS: 09/20/24, DI CHEST,SINGLE VIEW on DOS: 09/19/24 FINDINGS: LUNGS AND PLEURAL SPACES: Unremarkable. No consolidation. No pneumothorax. HEART: Unremarkable. No cardiomegaly. MEDIASTINUM: Unremarkable. Normal mediastinal contour. BONES/JOINTS: Unremarkable. No acute fracture. TUBES, LINES AND DEVICES: PICC line is not clearly visualized. Clinical correlation is recommended . OTHER FINDINGS: . IMPRESSION: PICC line is not clearly visualized. Clinical correlation is recommended.
[2024-10-11] MEDS: heparin, porcine 5000 units/ml vial SQ SCH (08:00)
[2024-10-11] MEDS: K and/or MAG REPLACEMENT MC SCH (08:00)
[2024-10-11] MEDS ORDERED: vancomycin/NS 1 GM ADD-VANTAGE 250 ML IV SCH ×2 (08:00)
[2024-10-11] MEDS: pantoprazole 40mg Tablet.DR PO SCH (09:08)
[2024-10-11] MEDS: finasteride 5mg tablet PO SCH (09:08)
[2024-10-11] MEDS: NYSTATIN CREAM - 30GM TUBE TP SCH (09:09)
[2024-10-11] MEDS: BUPROPION HCL 150MG XL 24 HR 150 MG TAB PO SCH (09:11)
[2024-10-11] MEDS: piperacillin/tazo 4.5gm/100ml 100 ML IV SCH (09:11)
[2024-10-11] MEDS: vancomycin/NS 1 GM ADD-VANTAGE 250 ML IV SCH (09:11)
[2024-10-11] MEDS: acetaminophen 325mg tablet PO PRN (09:49)
--- NOTE | 2024-10-11 11:54 | PROGRESS NOTE ---
Progress Note ID Providers to CC ~ Progress Note Progress Note: pt seen and examined-needs thorascopic evacuation of left effusion/possible decortication/possible thoracotomy-discussed procedure including risks/benefits/alternatives MONTY WAYNE MD October 11, 2024 11:53
[2024-10-11] MEDS ORDERED: LIDOcaine 1% (10mg/ml) 2ml vial ONE (12:51)
[2024-10-11] MEDS ORDERED: rocuronium 10mg/ml inj IV ONE ×2 (13:25)
[2024-10-11] MEDS ORDERED: MIDAZolam 1 MG/ML 5ML VIAL ONE (13:25)
[2024-10-11] MEDS ORDERED: fentaNYL /PF 50mcg/ml 5ml ampule ONE (13:25)
[2024-10-11] MEDS ORDERED: propofol inj 20 ML IV ONE (13:26)
[2024-10-11] MEDS ORDERED: LIDOcaine 2% (20mg/ml) 5ml vial ONE (13:26)
[2024-10-11] MEDS ORDERED: dexamethasone sod phosphate 4mg/ml inj. ONE (13:28)
[2024-10-11] MEDS ORDERED: ondansetron/PF 4mg/2ml inj ONE (13:28)
[2024-10-11] MEDS ORDERED: sevoflurane 250ml liquid IH ONE (13:50)
--- NOTE | 2024-10-11 15:21 | PROGRESS NOTE ---
Anesthesia - Line Placement Line Placement CVP: Internal Jugular (RIGHT) Arterial Line: Radial (RIGHT) Separate "Sticks": Ultrasound Guidance, Vasc Structure Identified, Patency Confirmed, Entry Observed by [place] Sterile Protocol or Technique: Sterile Seldinger tech, Full Sterile Protocol Prep: Chloraprep Complications None Additional Text Patient had right carotid surgery. Left Internal jugular canulation attempted. Ultrasound examination of neck, no obvious carotid seen Left IJ canulatedX2 , Guide wire placement was unsuccefull. So Right neck examined with ultrasound Right Internal jugular vesseel is small calibare,secordary to surgicall scarring?. Right internal Jugular is canulated,guide wire passed more easily. triple lumen canula placed easily. GABI ANTONIO MD October 11, 2024 15:21
[2024-10-11] MEDS: ringers solution, lacted 1,000 ML IV SCH (15:25)
[2024-10-11] MEDS ORDERED: labetalol 20mg/4ml (5mg/ml) syringe IV PRN (15:25)
[2024-10-11] MEDS ORDERED: fentaNYL/PF 50MCG/1 ML 2ML syringe IV PRN ×2 (15:25)
[2024-10-11] MEDS ORDERED: ondansetron/PF 4mg/2ml inj IV PRN ×2 (15:25→17:40)
[2024-10-11] MEDS ORDERED: morphine 2 MG/ML inj. syringe IV PRN ×2 (15:25→17:40)
[2024-10-11] MEDS ORDERED: morphine 4 MG/ML inj SYRINge IV PRN (15:25)
[2024-10-11] MEDS: albuterol 2.5 MG/3 ML nebule NEB ONE (15:25)
[2024-10-11] MEDS ORDERED: hydrALAZINE 20mg/ml inj. IV PRN (15:25)
[2024-10-11] MEDS ORDERED: MIDAZolam inj 50 MG in normal saline 50ml IV soln 40 ML IV SCH (15:30)
[2024-10-11] MEDS: FENTANYL-0.9 % NACL/PF 100 ML IV SCH (16:50)
[2024-10-11] MEDS: midazolam 100mg in NS 100 ML INFUSION IV PRN (16:51)
[2024-10-11 17:02] LABS: ABG BASE EXCESS -1.9 mmol/L (-2.0-3.0); ABG HCO3 22.9 mmol/L (21.0-28.0); ABG OXYGEN SATURATION 99.8 % (94.0-98.0); ABG PCO2 (T) 38.3 mmHg (35.0-48.0); ABG PH (T) 7.392 (7.350-7.450); FCOHb 0.6 % (0.5-1.5); FHHb 0.2 % (0.0-5.0); FMetHb 0.3 % (0.0-1.5); FO2Hb 98.9 % (94.0-98.0); MODE VENT - AC; PATIENT TEMPERATURE 36.7; PEEP 5 cm H2O; RESPIRATORY RATE 10 b/min; TIDAL VOLUME 650 mL; TOTAL HEMOGLOBIN 10.7 G/dl (13.5-17.5)
[2024-10-11 17:11] LABS: ISTAT ANION GAP 10 (8-12); ISTAT BUN 8 mg/dL (7-18); ISTAT CL 97 mmol/L (99-107); ISTAT CREATININE 0.7 mg/dL (0.8-1.3); ISTAT GLUCOSE 92 mg/dL (70-104); ISTAT HGB 10.5 g/dl (14.0-17.9); ISTAT Hct 31 %PCV (42-52); ISTAT IONIZED CALCIUM 1.18 mmol/L (1.03-1.32); ISTAT K 4.6 mmol/L (3.5-5.1); ISTAT NA 137 mmol/L (135-145); ISTAT TOTAL CO2 30 mmol/L (24-32); ISTAT eGFR > 90 ML/MIN; POC BUN/CREATININE RATIO 11.4 (5.4-32.0)
--- NOTE | 2024-10-11 17:31 | OPERATIVE REPORT ---
Operative Report Providers to CC ~ Date of Procedure: October 11, 2024 Pre-Operative Diagnosis: recurrent left empyema Post-Operative Diagnosis SAME as PRE-Op Procedure Performed left thoracotomy/elloesser flap/debridement of chest wall/drainage chest wall abscess Surgeon: manuel mckeon Anesthesiologist: Jurgen Campbell Type of Anesthesia: General Findings: purulent pleural material/trapped lung Estimated Blood Loss: 150 ml Specimen Removed: culture MONTY WAYNE MD October 11, 2024 17:31
[2024-10-11] MEDS ORDERED: metoclopramide 5 mg/ml inj IV PRN (17:40)
[2024-10-11] MEDS ORDERED: HYDROcodone/acetaminophen 10/325mg tab PO PRN ×2 (17:40)
[2024-10-11] MEDS ORDERED: FENTANYL-0.9 % NACL/PF 100 ML IV SCH (17:40)
[2024-10-11] MEDS ORDERED: albuterol 2.5 MG/3 ML nebule NEB PRN (17:40)
--- NOTE | 2024-10-11 17:43 | RADIOLOGY REPORT ---
CHEST RADIOGRAPH Indication: POST OP Technique: Single frontal view of the chest was obtained COMPARISON: DI CHEST,SINGLE VIEW on DOS: 10/11/24, DI CHEST,SINGLE VIEW on DOS: 09/25/24, DI CHEST,SINGL E VIEW on DOS: 09/22/24, DI CHEST,SINGLE VIEW on DOS: 09/21/24, DI CHEST,SINGLE VIEW on DOS: 09/20/24 FINDINGS: Lines and Tubes: Endotracheal tube terminates 4 cm above the theo Near-complete opacification of the left hemithorax which may reflect a mixture of pneumonia, atelecta sis, and pleural fluid. No pneumothorax. Cardiomediastinal contours: Obscured Bones: Unremarkable IMPRESSION: 1. Near-complete opacification of the left hemithorax which may reflect a mixture of pneumonia, atele ctasis, and pleural fluid.
--- NOTE | 2024-10-11 18:51 | OPERATIVE REPORT ---
DATE OF SURGERY: 10/11/2024 DICTATING PHYSICIAN: Tyler Nava MD PREOPERATIVE DIAGNOSIS: Recurrent left-sided empyema with chest wall extension. POSTOPERATIVE DIAGNOSIS: Recurrent left-sided empyema with chest wall extension. PROCEDURES PERFORMED: * Wide debridement of left chest wall. * Drainage of chest wall abscess. * Eloesser flap. * Wound VAC placement. SURGEON: Tyler Nava MD WATCH INSPECTOR: Shana. ANESTHESIA: General/Dr. Campbell. DRAINS: None. INDICATIONS FOR OPERATION: A 74-year-old male with a history of previous left-sided post-pneumonic empyema whose lung failed to re-expand well. The patient was transferred to [facility]. Ultimately, he had the trach removed, did well, and developed an enlarging left-sided chest wall collection. Brought back to the [facility]. CAT scan revealed a large recurrent empyema with extension to the chest wall. The patient was taken to Surgery for surgical intervention, possible VATS, and possible decortication. INTRAOPERATIVE FINDINGS: The patient had a trapped lung with a large space in the anterior portion of the left pleura. Lung was not amenable to decortication. An Eloesser flap was subsequently constructed and a wide amount of chest wall debrided. DESCRIPTION OF PROCEDURE: The patient was placed supine on the operating table. After the induction of general anesthesia and placement of endotracheal tube, the patient was placed in the lateral decubitus with left side up and then prepped and draped. Incision was made in the previous incision in mid axillary line. A large collection was identified, subsequently drained, probably a liter and a half purulent material. Incision was subsequently extended medially and laterally to facilitate identification of the large space in the chest wall. Capsule was subsequently removed by radical debridement of the chest and chest wall down to the ribs. resected in the previous operation, so a space was visualized in the chest cavity. The lung failed to re-expand to fill the space. The lungs were relatively trapped and not amenable to decortication, which had been done previously and failed to allow complete re-expansion of the lung. Pleural space was then debrided from the debris as much as possible. A wide debridement of the chest wall was then performed taking the capsule of the abscess cavity. Chest was irrigated with large amount of antibiotic-containing solution. A decision was made to use an Eloesser flap. Portion of the chest wall and ribs were subsequently resected, creating a 3 x 3 cm opening in the chest wall in the dependent position. Unfortunately, the chest wall was too thick to reattach the chest wall to the rib to create a standard Eloesser flap window. After irrigation of the wounds, the chest wall was reapproximated where possible. Large defect was present anteriorly, which could not be closed given the abscess and infection involvement. Wound VAC was brought to the field and secured in place incorporating the Eloesser flap, which was subsequently packed with Kerlix. Upon completion of the operation, dressings were applied as well as a wound VAC. The patient was transferred to the ICU in critical condition. Tyler Nava MD TID: [id number] RECEIPT: [id number] KB/YOK
--- NOTE | 2024-10-11 19:16 | PROGRESS NOTE ---
Daily Progress Note Providers to CC ~ Antibiotic Timeout Antibiotic Ordered?: Yes Subjective The patient was in no distress when I evaluated the patient's morning he had just been evaluated by Dr Nava who has since taking the patient to surgery for a wide debridement of the left chest wall and drainage of the left chest wall abscess as well as Eloesser flap. The patient is in the ICU on a ventilator Objective Vital Signs Date Time Temp Pulse Resp B/P (MAP) Pulse Ox O2 Delivery O2 Flow Rate FiO2 10/11/24 19:00 98.1 77 10 96/44 (61) 99 Mechanical Ventilator 40 10/11/24 08:00 2.0 Result Diagram: 10/11/2441810/11/24418 Gen. 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 Status post surgery with Dr. Nava on 10/11/2024- * Wide debridement of left chest wall. * Drainage of chest wall abscess. * Eloesser flap. * Wound VAC placement. Remains on vancomycin and Zosyn # acute respiratory failure postop- to be expected with thoracic surgery and not a complication of surgery. On a ventilator managed by # hypertension Currently blood pressure is soft Hold blood pressure medications for now # BPH Continue doxazosin and finasteride # depression Continue bupropion # DVT prophylaxis SQ heparin Date of Service: October 11, 2024 Billing Provider: NALINI GUEVARA DO Common Visit Codes: [id number] INP/OBS CARE(HIGH) NALINI GUEVARA DO October 11, 2024 19:16
[2024-10-11] MEDS: gabapentin 300mg capsule PO SCH (19:56)
[2024-10-11] MEDS: potassium Cl 20mEq in D5-NS 1,000 ML IV SCH (20:50)
[2024-10-11] MEDS: albumin (Human) 5% 250ml 250 ML IV ONE ×4 (20:57→21:20)
[2024-10-11] MEDS: Melatonin 3mg tablet PO SCH (21:00)
[2024-10-11] MEDS: doxazosin mesylate 2mg tablet PO SCH (21:00)
[2024-10-12] VITALS (31 sets, daily range): BP systolic 85–145; BP diastolic 36–63; PULSE 71–87; RESP 10–26; O2SAT 93–100
--- NOTE | 2024-10-12 00:29 | CONSULTATION ---
DATE OF CONSULTATION: 10/10/2024 DICTATING PHYSICIAN: Tyler Nava MD REASON FOR CONSULTATION: Evaluation of left-sided pleural effusion. HISTORY OF PRESENT ILLNESS: The patient is a 74-year-old male who was hospitalized in September of this year, found to have a left posttraumatic empyema and underwent a left thoracotomy, decortication, chest tube placement. Lung did not re-expand well post decortication. The patient was sent back to ICU, had a trach and open transfer to [facility]. Chest tubes were subsequently removed. While in [facility], the patient developed swelling of the left chest wall, was transferred back to [facility]. A CAT scan of the chest revealed recurrent left-sided effusion with a large question in the subcutaneous tissue. Surgical evaluation is now requested. On further questioning, the patient denies any chest discomfort, some mild shortness of breath. He is walking with a walker. No hemoptysis. He continues on antibiotics. Cultures from before grew out E. coli. PAST MEDICAL HISTORY: Significant for hypertension, BPH, skin cancer, osteoarthritis, anemia, depression, left-sided empyema. PAST SURGICAL HISTORY: Includes previous left thoracotomy and decortication, tracheostomy, knee procedure, partial colectomy, cholecystectomy. HOME MEDICATIONS: Include Colace, nystatin, melatonin, Ativan, Dilaudid, [place], ProAir, testosterone, Prilosec, doxazosin, and Wellbutrin. ALLERGIES: MULTIPLE CEFTRIAXONE, METRONIDAZOLE, AMOXICILLIN, CLAVULANIC ACID AND CODEINE. SOCIAL HISTORY: No history of tobacco use. REVIEW OF SYSTEMS: See H and P. PHYSICAL EXAMINATION: GENERAL: Well nourished man, in no distress. VITAL SIGNS: Unremarkable. HEART: Regular rate and rhythm. LUNGS: Diminished breath sounds, left hemithorax. A large amount of swelling in the left chest wall. ABDOMEN: Benign. EXTREMITIES: Unremarkable. LABORATORY DATA: Labs include WBC of 11, hematocrit of 30, platelet count is 312. Chemistries; BUN and creatinine are 8 and 0.7. IMAGING STUDIES: CAT scan revealed a large left-sided effusion with extension of the chest wall. IMPRESSION: * Recurrent pleural space infection with extension in the chest wall. * History of empyema, status post decortication. * History of skin cancer . RECOMMENDATIONS: Fluoroscopic decortication and possible thoracotomy. Tyler Nava MD TID: [id number] RECEIPT: [id number] JOSE A/GITA/SHAREE
[2024-10-12 02:17] LABS: BASOPHILS % (AUTO) 0.1 % (0-1); EOSINOPHILS % (AUTO) 0 % (0-6); HEMATOCRIT 27.3 % (42.0-52.0); HEMOGLOBIN 8.6 g/dl (14.0-17.9); LYMPHOCYTES # (AUTO) 0.5 X10'3 (1.1-4.8); LYMPHOCYTES % (AUTO) 3.6 % (21-51); MEAN CORPUSCULAR HEMOGLOBIN 29.9 PG (27.0-31.0); MEAN CORPUSCULAR HGB CONC 31.7 g/dL (33.0-36.5); MEAN CORPUSCULAR VOLUME 94.4 FL (78-98); MEAN PLATELET VOLUME 6.7 FL (7.4-10.4); MONOCYTES # (AUTO) 0.4 X10'3 (0-0.9); MONOCYTES % (AUTO) 2.8 % (2-12); NEUTROPHILS # (AUTO) 11.7 X10'3 (1.8-7.7); NEUTROPHILS % (AUTO) 93.5 % (42-75); PLATELET COUNT 290 X10'3 (140-440); RED BLOOD COUNT 2.89 X10'6 (4.70-6.10); RED CELL DISTRIBUTION WIDTH 17.3 % (11.5-14.5); WHITE BLOOD COUNT 12.6 X10'3 (4.5-11.0)
[2024-10-12 02:34] LABS: ALANINE AMINOTRANSFERASE 28 U/L (12-78); ALBUMIN 2.3 G/DL (3.4-5.0); ALBUMIN/GLOBULIN RATIO 0.6 (1.1-1.5); ALKALINE PHOSPHATASE 68 IU/L (46-116); ANION GAP 9 (8-16); ASPARTATE AMINO TRANSFERASE 13 U/L (10-37); BILIRUBIN,TOTAL 0.5 MG/DL (0.1-1.0); BLOOD UREA NITROGEN 10 MG/DL (7-18); BUN/CREATININE RATIO 15.4 (10.0-20.0); CALCIUM 8.4 MG/DL (8.5-10.1); CHLORIDE 103 MMOL/L (99-107); CREATININE 0.65 MG/DL (0.60-1.10); GLUCOSE 114 MG/DL (70-104); MAGNESIUM 1.7 MG/DL (1.5-2.4); POTASSIUM 4.8 MMOL/L (3.5-5.1); SODIUM 140 MMOL/L (135-145); TOTAL CARBON DIOXIDE 27.8 MMOL/L (24-32); TOTAL PROTEIN 6.1 G/DL (6.4-8.2); eCRCL 109 ML/MIN; eGFR > 90 ML/MIN
[2024-10-12 03:28] LABS: ABG BASE EXCESS 0.5 mmol/L (-2.0-3.0); ABG HCO3 25.4 mmol/L (21.0-28.0); ABG OXYGEN SATURATION 97.6 % (94.0-98.0); ABG PCO2 (T) 41.8 mmHg (35.0-48.0); ABG PH (T) 7.401 (7.350-7.450); ABG PO2 (T) 100.2 mmHg (83.0-108.0); FCOHb 0.7 % (0.5-1.5); FHHb 2.4 % (0.0-5.0); FMetHb 0.3 % (0.0-1.5); FO2Hb 96.6 % (94.0-98.0); MODE VENT - AC; PATIENT TEMPERATURE 36.6; PEEP 8 cm H2O; RESPIRATORY RATE 10 b/min; TIDAL VOLUME 650 mL; TOTAL HEMOGLOBIN 9.4 G/dl (13.5-17.5)
--- NOTE | 2024-10-12 06:05 | RADIOLOGY REPORT ---
EXAM: XR Chest, 1 View CLINICAL INDICATION: POST OP TECHNIQUE: Frontal view of the chest. COMPARISON: DI CHEST,SINGLE VIEW on DOS: 10/11/24, DI CHEST,SINGLE VIEW on DOS: 10/11/24, DI CHEST,SING LE VIEW on DOS: 09/25/24, DI CHEST,SINGLE VIEW on DOS: 09/22/24, DI CHEST,SINGLE VIEW on DOS: 09/21/24 FINDINGS: LUNGS AND PLEURAL SPACES: Left basilar atelectasis or pneumonia. No pneumothorax. HEART: Cardiomegaly without overt failure. MEDIASTINUM: Unremarkable. Normal mediastinal contour. BONES/JOINTS: Unremarkable. No acute fracture. TUBES, LINES AND DEVICES: The endotracheal tube (ETT) is in satisfactory position. Enteric tube ti p cannot be seen but is below the diaphragm. OTHER FINDINGS: . . . IMPRESSION: 1. Left basilar atelectasis or pneumonia. 2. Cardiomegaly without overt failure.
[2024-10-12] MEDS: VANCOMYCIN LEVEL IV ONE (07:58)
[2024-10-12] MEDS ORDERED: doxazosin mesylate 2mg tablet PEG SCH (08:21)
[2024-10-12] MEDS ORDERED: lansoprazole 15mg solutab PEG SCH (08:21)
[2024-10-12] MEDS ORDERED: doxazosin mesylate 2mg tablet GT SCH (08:27)
[2024-10-12] MEDS ORDERED: Melatonin 3mg tablet GT SCH (08:28)
[2024-10-12] MEDS ORDERED: magnesium hydroxide 30ml (MOM) UD suspension GT PRN (09:16)
[2024-10-12] MEDS ORDERED: acetaminophen 325mg tablet GT PRN ×2 (09:16)
[2024-10-12] MEDS ORDERED: HYDROcodone/acetaminophen 7.5MG/325MG per 15ml UD CUP GT PRN (09:19)
[2024-10-12] MEDS ORDERED: HYDROcodone/acetaminophen 7.5MG/325MG per 15ml UD CUP PO PRN ×2 (09:19→19:18)
[2024-10-12] MEDS ORDERED: POTASSIUM CHLORIDE 20 MEQ/15 ML oral solution GT PRN ×2 (09:29→09:30)
[2024-10-12] MEDS ORDERED: mag hydrox/Alum hydrox/simeth 30ml oral suspension GT PRN (09:31)
[2024-10-12] MEDS ORDERED: lansoprazole 15mg solutab GT SCH (12:56)
[2024-10-12] MEDS: HYDROcodone/acetaminophen 7.5MG/325MG per 15ml UD CUP GT PRN (14:47)
--- NOTE | 2024-10-12 15:03 | RADIOLOGY REPORT ---
CHEST RADIOGRAPH Indication: r/o pneumothorax Technique: Frontal view of the chest. Comparison: DI CHEST,SINGLE VIEW on DOS: 10/12/24, DI CHEST,SINGLE VIEW on DOS: 10/11/24, DI CHEST,SINGLE VIEW on DOS: 10/11/24, DI CHEST,SINGLE VIEW on DOS: 09/25/24, DI CHEST,SINGLE VIEW on DOS: 09/22/24, DI CHEST,SINGLE VIEW on DOS: 10/12/24 FINDINGS: LUNGS AND PLEURAL SPACES: Left basilar atelectasis or pneumonia. No pneumothorax. HEART: Cardiomegaly without overt failure. MEDIASTINUM: Unremarkable. Normal mediastinal contour. BONES/JOINTS: Unremarkable. No acute fracture. TUBES, LINES AND DEVICES: Nasogastric tube and endotracheal tube. IMPRESSION: 1. Left basilar atelectasis or pneumonia. 2. Cardiomegaly without overt failure.
[2024-10-12] MEDS ORDERED: HYDROmorphone inj. 0.5 MG/0.5 ML DISP.SYRIN IV PRN (16:10)
--- NOTE | 2024-10-12 16:29 | RADIOLOGY REPORT ---
CHEST RADIOGRAPH Indication: eval left pneumo Technique: Single frontal view of the chest was obtained Comparison: DI CHEST,SINGLE VIEW on DOS: 10/12/24, DI CHEST,SINGLE VIEW on DOS: 10/12/24, DI CHEST,SINGLE VIEW on DOS: 10/11/24 FINDINGS: Lines and Tubes: Right IJ approach central venous catheter terminates proximal SC. Lungs: Near-complete opacification of the left hemithorax ; relatively unchanged from prior imaging. There is imaged rotation to the left limiting evaluation for mediastinal shift. The right lung is yair ar. No pneumothorax. Cardiomediastinal contours: Limited evaluation of the SICU to left hemithorax opacification Bones: No acute osseous abnormality. IMPRESSION: Near-complete opacification of the left hemithorax could be from moderate to large pleural effusion w ith associated atelectasis/pneumonia
--- NOTE | 2024-10-12 18:46 | PROGRESS NOTE ---
Progress Note ID Providers to CC ~ Progress Note Progress Note: extubated/vss/lungs-vac in place/labs noted a/p 1. s/p elloesser flap-doing well/cont antibx MONTY WAYNE MD October 12, 2024 18:46
--- NOTE | 2024-10-12 18:51 | PROGRESS NOTE ---
Daily Progress Note Providers to CC ~ Antibiotic Timeout Antibiotic Ordered?: Yes Subjective The patient was extubated today and I evaluated him shortly after being extubated overall he is doing pretty well, remains on 3 L oxygen by nasal cannula currently Objective Vital Signs Date Time Temp Pulse Resp B/P (MAP) Pulse Ox O2 Delivery O2 Flow Rate FiO2 10/12/24 17:00 97.3 82 18 125/57 (79) 98 Nasal Cannula 3.0 10/12/24 12:17 35 Result Diagram: 10/12/2419910/12/24199 Gen. 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 Status post surgery with Dr. Nava on 10/11/2024- * Wide debridement of left chest wall. * Drainage of chest wall abscess. * Eloesser flap. * Wound VAC placement. Remains on vancomycin and Zosyn # acute respiratory failure postop- to be expected with thoracic surgery and not a complication of surgery. On a ventilator managed by 10/12 extubated- on 3 L of oxygen currently # hypertension Currently blood pressure is soft Hold blood pressure medications for now # BPH Continue doxazosin and finasteride # depression Continue bupropion # DVT prophylaxis SQ heparin Date of Service: October 12, 2024 Billing Provider: NALINI GUEVARA DO Common Visit Codes: [id number] INP/OBS CARE(HIGH) NALINI GUEVARA DO October 12, 2024 18:51
--- NOTE | 2024-10-12 19:00 | CONSULTATION ---
DATE OF CONSULTATION: 10/12/2024 DICTATING PHYSICIAN: Eugenio Garcia MD REASON FOR CONSULTATION: The patient was reevaluated at the request of Dr. Nava for evaluation of a complex left chest wall infection. HISTORY OF PRESENT ILLNESS: He was actually seen by me at [facility] about a week ago. He had been discharged from [facility] on 09/25. He was on meropenem at that time. When I saw him about a week ago, he was doing quite well. He was hoping to go home soon. Unfortunately, he presented to [facility] with evidence of infection at the left chest wall. CT imaging showed a large abscess and he went to the operating room with Dr. Nava. He required an extensive debridement and drainage of the abscess. He required left thoracotomy with eloesser flap. He was found to have purulent fluid with a persistently trapped lung. New cultures were obtained. He is currently receiving vancomycin and Zosyn, and he remains intubated. PHYSICAL EXAMINATION: VITAL SIGNS: He is afebrile with stable vital signs. When I saw him earlier today, he was on 35% FiO2 with PEEP 8. I believe he has since been extubated. GENERAL: He is a pleasant elderly male who was intubated when I saw him this morning. NECK: With a right internal jugular central venous catheter in place. LUNGS: With decreased breath sounds on the left side and his left chest is bandaged. HEART: Regular rate and rhythm. ABDOMEN: Soft and nondistended with a gastrostomy tube. EXTREMITIES: He has a right radial arterial line. LABORATORY DATA: His white blood cell count is 12,600, hemoglobin 8.6, platelets 290,000. His creatinine is 0.65. Blood cultures are pending. Sputum culture is pending and fluid from his abscess is also pending on culture. IMAGING STUDIES: CT imaging has been reviewed. He did have a large soft tissue abscess at the left chest wall and axillary soft tissue that appeared to communicate with the left pleural space. He also had persistent opacification at the left lung. IMPRESSION: * Complicated infection involving left hemithorax. He was felt to have a pneumonia with parapneumonic effusion/empyema. He had undergone drainage, but there was concern for a trapped lung. Following his initial thoracotomy and decortication, he has now gone on to develop a significant abscess at the left chest wall, likely communicating with the pleural space. * Escherichia coli had been identified in the past, but he had been aggressively treated with meropenem. It is unclear why he regressed and it is unclear if a different pathogen is involved. He now has an eloesser flap to allow for persistent drainage. RECOMMENDATIONS: He will continue with vancomycin and Zosyn for now. I will follow up his new cultures and adjust the antibiotics accordingly. He still needs a prolonged course of antibiotics, and he will have ongoing drainage from the eloesser flap. If he is failing to improve, he may need a broader range of cultures to include fungal culture and mycobacterial culture. I will continue to follow him closely. Eugenio Garcia MD TID: [id number] RECEIPT: [id number] CAMILA/TREY
[2024-10-12] MEDS ORDERED: acetaminophen 325mg tablet PO PRN (19:19)
[2024-10-12] MEDS ORDERED: POTASSIUM CHLORIDE 20 MEQ/15 ML oral solution PO PRN ×2 (19:20)
[2024-10-12] MEDS: HYDROcodone/acetaminophen 7.5MG/325MG per 15ml UD CUP PO PRN (19:50)
[2024-10-12] MEDS ORDERED: GABAPENTIN 300 MG/6 ML oral SOLUTION cup PO SCH (20:00)
[2024-10-12] MEDS: gabapentin 400mg capsule PO SCH (21:00)
[2024-10-12] MEDS: gabapentin 400mg capsule PO ONE (21:00)
[2024-10-12] MEDS: VANCOmycin 1250MG/NS 250ml Bag 250 ML IV SCH (21:09)
[2024-10-12] MEDS: Melatonin 3mg tablet PO SCH (21:10)
[2024-10-12] MEDS: doxazosin mesylate 2mg tablet PO SCH (21:11)
[2024-10-12] MEDS: gabapentin 300mg capsule PO SCH (21:11)
[2024-10-13] VITALS (24 sets, daily range): BP systolic 93–124; BP diastolic 36–68; PULSE 67–98; RESP 15–30; O2SAT 92–98
[2024-10-13 02:09] LABS: BASOPHILS % (AUTO) 0.3 % (0-1); EOSINOPHILS # (AUTO) 0.1 X10'3 (0-0.9); EOSINOPHILS % (AUTO) 1.1 % (0-6); HEMATOCRIT 25.5 % (42.0-52.0); HEMOGLOBIN 8.3 g/dl (14.0-17.9); LYMPHOCYTES # (AUTO) 0.8 X10'3 (1.1-4.8); LYMPHOCYTES % (AUTO) 11.2 % (21-51); MEAN CORPUSCULAR HEMOGLOBIN 30.9 PG (27.0-31.0); MEAN CORPUSCULAR HGB CONC 32.7 g/dL (33.0-36.5); MEAN CORPUSCULAR VOLUME 94.5 FL (78-98); MEAN PLATELET VOLUME 6.5 FL (7.4-10.4); MONOCYTES # (AUTO) 0.5 X10'3 (0-0.9); MONOCYTES % (AUTO) 7.3 % (2-12); NEUTROPHILS # (AUTO) 5.9 X10'3 (1.8-7.7); NEUTROPHILS % (AUTO) 80.1 % (42-75); PLATELET COUNT 307 X10'3 (140-440); RED CELL DISTRIBUTION WIDTH 17.6 % (11.5-14.5); WHITE BLOOD COUNT 7.4 X10'3 (4.5-11.0)
[2024-10-13 02:19] LABS: ALANINE AMINOTRANSFERASE 24 U/L (12-78); ALBUMIN 1.7 G/DL (3.4-5.0); ALBUMIN/GLOBULIN RATIO 0.5 (1.1-1.5); ALKALINE PHOSPHATASE 58 IU/L (46-116); ANION GAP 7 (8-16); ASPARTATE AMINO TRANSFERASE 12 U/L (10-37); BILIRUBIN,TOTAL 0.1 MG/DL (0.1-1.0); BLOOD UREA NITROGEN 8 MG/DL (7-18); BUN/CREATININE RATIO 12.7 (10.0-20.0); CALCIUM 8.1 MG/DL (8.5-10.1); CHLORIDE 108 MMOL/L (99-107); CREATININE 0.63 MG/DL (0.60-1.10); GLUCOSE 99 MG/DL (70-104); MAGNESIUM 1.5 MG/DL (1.5-2.4); POTASSIUM 4.1 MMOL/L (3.5-5.1); SODIUM 146 MMOL/L (135-145); TOTAL CARBON DIOXIDE 31.3 MMOL/L (24-32); TOTAL PROTEIN 5.3 G/DL (6.4-8.2); eCRCL 113 ML/MIN; eGFR > 90 ML/MIN
--- NOTE | 2024-10-13 07:11 | RADIOLOGY REPORT ---
EXAM: XR Chest, 1 View CLINICAL INDICATION: POST OP TECHNIQUE: Frontal view of the chest. COMPARISON: DI CHEST,SINGLE VIEW on DOS: 10/12/24, DI CHEST,SINGLE VIEW on DOS: 10/12/24, DI CHEST,SING LE VIEW on DOS: 10/12/24, DI CHEST,SINGLE VIEW on DOS: 10/11/24, DI CHEST,SINGLE VIEW on DOS: 10/11/24 FINDINGS: LUNGS AND PLEURAL SPACES: Left pleural effusion. HEART: Cardiomegaly with mild congestion. MEDIASTINUM: Unremarkable. Normal mediastinal contour. BONES/JOINTS: Unremarkable. No acute fracture. OTHER FINDINGS: . . . IMPRESSION: 1. Cardiomegaly with mild congestion. 2. Left pleural effusion.
[2024-10-13] MEDS: lansoprazole 15mg solutab PO SCH (09:18)
[2024-10-13] MEDS: acetaminophen 325mg tablet PO PRN (09:18)
--- NOTE | 2024-10-13 11:15 | PROGRESS NOTE ---
Progress Note Dictate Providers to CC ~ Subjective Subjective: He has been stable overnight. He does have some soreness of the left chest. Breathing is stable. Objective Objective: GENERAL: He is a pleasant elderly male who looks stable NECK: Right internal jugular central venous catheter in place. LUNGS: With decreased breath sounds on the left side and his left chest is bandaged. HEART: Regular rate and rhythm. ABDOMEN: Soft and nondistended with a gastrostomy tube Lab Results: 10/13/2414810/13/24148 Lab comments: Culture pending Problem\Assessment\Plan Additional Plan Complicated infection involving left hemithorax. He was felt to have a pneumonia with parapneumonic effusion/empyema. He had undergone drainage, but there was concern for a trapped lung. Following initial thoracotomy and decortication, he went on to develop significant abscess at left chest wall, likely communicating with the pleural space s/p drainage E. coli had been identified in the past, but he had been aggressively treated with meropenem. It is unclear why he regressed, ?different pathogen involved He now has an Eloesser flap to allow for persistent drainage. Continue vancomycin and Zosyn for now Follow-up new cultures May need broader range of cultures, including mycobacteria and fungi, if current cultures are negative Duration of therapy unclear at this point CHANELL SAMUEL MD October 13, 2024 11:15
[2024-10-13] MEDS: HYDROcodone/acetaminophen 10/325mg tab PO PRN (14:48)
[2024-10-13] MEDS: midazolam 1 mg/ML 2ml injection ONE (16:26)
[2024-10-13] MEDS: albumin (Human) 5% 250ml 250 ML IV ONE (17:18)
--- NOTE | 2024-10-13 17:24 | PROGRESS NOTE ---
Progress Note ID Providers to CC ~ Progress Note Progress Note: doing well/transfer to tele-pt MONTY WAYNE MD October 13, 2024 17:24
--- NOTE | 2024-10-13 20:10 | PROGRESS NOTE ---
Daily Progress Note Providers to CC ~ Antibiotic Timeout Antibiotic Ordered?: Yes Subjective The patient is not short of breath at rest and has no acute complaints other than wanting to go home. The patient is cleared by Dr. Nava to be transferred to PCU. Objective Vital Signs Date Time Temp Pulse Resp B/P (MAP) Pulse Ox O2 Delivery O2 Flow Rate FiO2 10/13/24 19:11 18 10/13/24 19:00 99.3 93 113/65 (81) 97 Nasal Cannula 2.0 10/12/24 12:17 35 Result Diagram: 10/13/2414810/13/24148 Gen. 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 Status post surgery with Dr. Nava on 10/11/2024- * Wide debridement of left chest wall. * Drainage of chest wall abscess. * Eloesser flap. * Wound VAC placement. Remains on vancomycin and Zosyn 10/[address] Jed vasquez infectious disease physician who recommends continuing IV vancomycin and Zosyn for extended period of time # acute respiratory failure postop- to be expected with thoracic surgery and not a complication of surgery. On a ventilator managed by 10/12 extubated- on 3 L of oxygen currently / oxygen saturations is in the mid to high 90s on 2 L oxygen # hypertension Currently blood pressure is soft Hold blood pressure medications for now 10/13 blood pressure has improved in his in normal limits # BPH Continue doxazosin and finasteride # depression Continue bupropion # DVT prophylaxis SQ heparin Date of Service: October 13, 2024 Billing Provider: NALINI GUEVARA DO Common Visit Codes: [id number] INP/OBS CARE(HIGH) NALINI GUEVARA DO October 13, 2024 20:10
[2024-10-14] VITALS (21 sets, daily range): BP systolic 102–135; BP diastolic 49–84; PULSE 75–89; RESP 14–22; O2SAT 94–98
[2024-10-14 02:47] LABS: BASOPHILS % (AUTO) 0.3 % (0-1); EOSINOPHILS # (AUTO) 0.1 X10'3 (0-0.9); HEMATOCRIT 27.4 % (42.0-52.0); HEMOGLOBIN 8.9 g/dl (14.0-17.9); LYMPHOCYTES % (AUTO) 14.2 % (21-51); MEAN CORPUSCULAR HEMOGLOBIN 30.8 PG (27.0-31.0); MEAN CORPUSCULAR HGB CONC 32.6 g/dL (33.0-36.5); MEAN CORPUSCULAR VOLUME 94.5 FL (78-98); MEAN PLATELET VOLUME 6.4 FL (7.4-10.4); MONOCYTES # (AUTO) 0.6 X10'3 (0-0.9); MONOCYTES % (AUTO) 8.4 % (2-12); NEUTROPHILS # (AUTO) 5.1 X10'3 (1.8-7.7); NEUTROPHILS % (AUTO) 75.1 % (42-75); PLATELET COUNT 359 X10'3 (140-440); RED CELL DISTRIBUTION WIDTH 17.6 % (11.5-14.5); WHITE BLOOD COUNT 6.8 X10'3 (4.5-11.0)
[2024-10-14 03:05] LABS: ALANINE AMINOTRANSFERASE 20 U/L (12-78); ALBUMIN 1.7 G/DL (3.4-5.0); ALBUMIN/GLOBULIN RATIO 0.4 (1.1-1.5); ALKALINE PHOSPHATASE 62 IU/L (46-116); ANION GAP 6 (8-16); ASPARTATE AMINO TRANSFERASE 10 U/L (10-37); BILIRUBIN,TOTAL 0.1 MG/DL (0.1-1.0); BLOOD UREA NITROGEN 8 MG/DL (7-18); BUN/CREATININE RATIO 11.3 (10.0-20.0); CALCIUM 8.3 MG/DL (8.5-10.1); CHLORIDE 107 MMOL/L (99-107); CREATININE 0.71 MG/DL (0.60-1.10); GLUCOSE 105 MG/DL (70-104); MAGNESIUM 1.4 MG/DL (1.5-2.4); POTASSIUM 4.4 MMOL/L (3.5-5.1); SODIUM 146 MMOL/L (135-145); TOTAL CARBON DIOXIDE 32.6 MMOL/L (24-32); TOTAL PROTEIN 5.5 G/DL (6.4-8.2); eCRCL 100 ML/MIN; eGFR > 90 ML/MIN
[2024-10-14] MEDS ORDERED: magnesium sulf-water 4G/100mL 100 ML IV PRN (03:30)
[2024-10-14] MEDS ORDERED: potassium Cl 40MEQ/1/2NS 520ml 520 ML IV PRN (03:30)
[2024-10-14] MEDS ORDERED: potassium Cl 20 mEq SR tablet PO PRN ×2 (03:30)
[2024-10-14] MEDS: K and/or MAG REPLACEMENT MC SCH (08:00)
--- NOTE | 2024-10-14 08:02 | RADIOLOGY REPORT ---
CHEST RADIOGRAPH Indication: POST OP Technique: Single frontal view of the chest was obtained COMPARISON: DI CHEST,SINGLE VIEW on DOS: 10/13/24, DI CHEST,SINGLE VIEW on DOS: 10/12/24, DI CHEST,SINGL E VIEW on DOS: 10/12/24, DI CHEST,SINGLE VIEW on DOS: 10/12/24, DI CHEST,SINGLE VIEW on DOS: 10/11/24 FINDINGS: Lines and Tubes: None Lungs: Increased opacification of the left hemithorax. Pleura: No effusion. No pneumothorax. Cardiomediastinal contours: Unremarkable Bones: Unremarkable IMPRESSION: Increased opacification of the left hemithorax.
[2024-10-14] MEDS: VANCOMYCIN LEVEL IV ONE (08:30)
--- NOTE | 2024-10-14 11:35 | PROGRESS NOTE ---
Progress Note ID Providers to CC ~ Progress Note Progress Note: DOING WELL/PACKING CHANGE IN OR TUESDAY MONTY WAYNE MD October 14, 2024 11:35
[2024-10-14] MEDS: VANCOMYCIN/WATER FOR INJ (PEG) 750MG/150 ML IVPB IV SCH (11:49)
[2024-10-14] MEDS: VANCOMYCIN 750MG IV in NS 250 ML IV SCH (18:34)
--- NOTE | 2024-10-14 19:16 | PROGRESS NOTE ---
Daily Progress Note Providers to CC ~ Antibiotic Timeout Antibiotic Ordered?: Yes Subjective The patient overall is doing well- his packing was saturated today and thus is taking the patient to OR for changing a packing tomorrow. The patient remains on 2 L of oxygen. Objective Vital Signs Date Time Temp Pulse Resp B/P (MAP) Pulse Ox O2 Delivery O2 Flow Rate FiO2 10/14/24 18:00 97.3 85 19 98 Nasal Cannula 2.0 10/14/24 17:43 28 10/14/24 17:00 111/61 (78) Result Diagram: 10/14/24 0020 10/14/24 0020 Gen. 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 Status post surgery with Dr. Nava on 10/11/2024- * Wide debridement of left chest wall. * Drainage of chest wall abscess. * Eloesser flap. * Wound VAC placement. Remains on vancomycin and Zosyn 10/[address] Jed vasquez infectious disease physician who recommends continuing IV vancomycin and Zosyn for extended period of time 10/14 packing with saturated today- Dr. Nava is taking the patient is in the OR for changing the packing tomorrow # acute respiratory failure postop- to be expected with thoracic surgery and not a complication of surgery. On a ventilator managed by 10/12 extubated- on 3 L of oxygen currently 10/13 oxygen saturations is in the mid to high 90s on 2 L oxygen 10/14 remained stable # hypertension Currently blood pressure is soft Hold blood pressure medications for now 10/13 blood pressure has improved in his in normal limits # BPH Continue doxazosin and finasteride # depression Continue bupropion # DVT prophylaxis SQ heparin Date of Service: October 14, 2024 Billing Provider: NALINI GUEVARA DO Common Visit Codes: [id number] INP/OBS CARE(HIGH) NALINI GUEVARA DO October 14, 2024 19:16
[2024-10-14] MEDS: mag hydrox/Alum hydrox/simeth 30ml oral suspension PO PRN (20:18)
[2024-10-14] MEDS: ondansetron/PF 4mg/2ml inj IV PRN (21:17)
[2024-10-15] VITALS (26 sets, daily range): BP systolic 110–151; BP diastolic 51–99; PULSE 66–89; RESP 11–21; TEMP 97.1–98.3; O2SAT 89–98
[2024-10-15 01:44] LABS: BASOPHILS % (AUTO) 0.4 % (0-1); EOSINOPHILS # (AUTO) 0.2 X10'3 (0-0.9); EOSINOPHILS % (AUTO) 3.1 % (0-6); HEMATOCRIT 28.4 % (42.0-52.0); HEMOGLOBIN 9.4 g/dl (14.0-17.9); LYMPHOCYTES # (AUTO) 0.9 X10'3 (1.1-4.8); LYMPHOCYTES % (AUTO) 13.4 % (21-51); MEAN CORPUSCULAR HEMOGLOBIN 30.8 PG (27.0-31.0); MEAN CORPUSCULAR HGB CONC 33.2 g/dL (33.0-36.5); MEAN CORPUSCULAR VOLUME 92.8 FL (78-98); MEAN PLATELET VOLUME 6.1 FL (7.4-10.4); MONOCYTES # (AUTO) 0.4 X10'3 (0-0.9); MONOCYTES % (AUTO) 6.1 % (2-12); NEUTROPHILS # (AUTO) 5.2 X10'3 (1.8-7.7); PLATELET COUNT 388 X10'3 (140-440); RED BLOOD COUNT 3.06 X10'6 (4.70-6.10); RED CELL DISTRIBUTION WIDTH 17.4 % (11.5-14.5); WHITE BLOOD COUNT 6.7 X10'3 (4.5-11.0)
[2024-10-15 02:18] LABS: ALANINE AMINOTRANSFERASE 18 U/L (12-78); ALBUMIN 1.7 G/DL (3.4-5.0); ALBUMIN/GLOBULIN RATIO 0.4 (1.1-1.5); ALKALINE PHOSPHATASE 64 IU/L (46-116); ANION GAP 2 (8-16); ASPARTATE AMINO TRANSFERASE 8 U/L (10-37); BILIRUBIN,TOTAL 0.2 MG/DL (0.1-1.0); BLOOD UREA NITROGEN 5 MG/DL (7-18); BUN/CREATININE RATIO 6.3 (10.0-20.0); CALCIUM 8.6 MG/DL (8.5-10.1); CHLORIDE 105 MMOL/L (99-107); CREATININE 0.79 MG/DL (0.60-1.10); GLUCOSE 115 MG/DL (70-104); MAGNESIUM 1.3 MG/DL (1.5-2.4); POTASSIUM 4.1 MMOL/L (3.5-5.1); SODIUM 143 MMOL/L (135-145); TOTAL CARBON DIOXIDE 35.7 MMOL/L (24-32); TOTAL PROTEIN 5.6 G/DL (6.4-8.2); eCRCL 90 ML/MIN; eGFR > 90 ML/MIN
[2024-10-15] MEDS: magnesium sulf-water 4G/100mL 100 ML IV ONE (02:54)
[2024-10-15] MEDS: magnesium sulf-water 2g/50mL 50 ML IV PRN (03:01)
--- NOTE | 2024-10-15 06:00 | RADIOLOGY REPORT ---
EXAM: XR Chest, 1 View CLINICAL INDICATION: POST OP TECHNIQUE: Frontal view of the chest. COMPARISON: DI CHEST,SINGLE VIEW on DOS: 10/14/24, DI CHEST,SINGLE VIEW on DOS: 10/13/24, DI CHEST,SI NGLE VIEW on DOS: 10/12/24, DI CHEST,SINGLE VIEW on DOS: 10/12/24, DI CHEST,SINGLE VIEW on DOS: 10/12/24 FINDINGS: LUNGS AND PLEURAL SPACES: Large left pleural effusion. No consolidation. No pneumothorax. HEART: Unremarkable. No cardiomegaly. MEDIASTINUM: Unremarkable. Normal mediastinal contour. BONES/JOINTS: Unremarkable. No acute fracture. OTHER FINDINGS: . IMPRESSION: Large left pleural effusion.
[2024-10-15] MEDS ORDERED: midazolam 1 mg/ML 2ml injection ONE (07:47)
[2024-10-15] MEDS ORDERED: fentaNYL /PF 50mcg/ml 5ml ampule ONE (07:48)
[2024-10-15] MEDS ORDERED: rocuronium 10mg/ml inj IV ONE (07:48)
[2024-10-15] MEDS ORDERED: ondansetron/PF 4mg/2ml inj ONE (07:48)
[2024-10-15] MEDS ORDERED: dexamethasone sod phosphate 4mg/ml inj. ONE (07:48)
[2024-10-15] MEDS ORDERED: LIDOcaine 2% (20mg/ml) 5ml vial ONE (07:48)
[2024-10-15] MEDS ORDERED: propofol inj 20 ML IV ONE (07:48)
[2024-10-15] MEDS ORDERED: ondansetron/PF 4mg/2ml inj IV PRN (08:10)
[2024-10-15] MEDS ORDERED: morphine 4 MG/ML inj SYRINge IV PRN (08:10)
[2024-10-15] MEDS ORDERED: fentaNYL/PF 50MCG/1 ML 2ML syringe IV PRN ×2 (08:10)
[2024-10-15] MEDS ORDERED: morphine 2 MG/ML inj. syringe IV PRN (08:10)
[2024-10-15] MEDS ORDERED: hydrALAZINE 20mg/ml inj. IV PRN (08:10)
[2024-10-15] MEDS ORDERED: labetalol 20mg/4ml (5mg/ml) syringe IV PRN (08:10)
--- NOTE | 2024-10-15 08:14 | PROGRESS NOTE ---
Progress Note ID Providers to CC ~ Progress Note Progress Note: pt needs wound packing change under anesthesia-discussed procedure including risks/benefits/alternatives MONTY WAYNE MD October 15, 2024 08:14
[2024-10-15] MEDS ORDERED: MIDAZolam 1 MG/ML 5ML VIAL ONE (08:21)
[2024-10-15] MEDS ORDERED: BUPIVAcaine 2.5mg/ml inj 50ml vial (contains preservative) ONE (08:23)
--- NOTE | 2024-10-15 08:57 | OPERATIVE REPORT ---
Operative Report Providers to CC ~ Date of Procedure: October 15, 2024 Pre-Operative Diagnosis: s/p elloesser flap Post-Operative Diagnosis SAME as PRE-Op Procedure Performed packing change under anesthesia Surgeon: manuel Pediatric Clinical Nurse Specialist none Anesthesiologist: Jurgen Campbell Type of Anesthesia: General Findings: clean wound Estimated Blood Loss: min Specimen Removed: packing MONTY WAYNE MD October 15, 2024 08:57
[2024-10-15] MEDS ORDERED: naloxone 0.4 mg/ml inj IV PRN (09:00)
--- NOTE | 2024-10-15 10:50 | PROGRESS NOTE ---
Progress Note Dictate Providers to CC ~ Subjective Subjective: He did go to the operating room today for additional debridement. Pain is controlled. Breathing is stable. No fever. Objective Objective: GENERAL: He is a pleasant elderly male who looks stable NECK: Right internal jugular central venous catheter in place. LUNGS: With decreased breath sounds on the left side and his left chest is bandaged. HEART: Regular rate and rhythm. ABDOMEN: Soft and nondistended with a gastrostomy tube Lab Results: 10/15/24 0130 10/15/24 0130 Problem\Assessment\Plan Additional Plan Complicated infection involving left hemithorax. He was felt to have a pneumonia with parapneumonic effusion/empyema. He had undergone drainage, but there was concern for a trapped lung. Following initial thoracotomy and decortication, he went on to develop significant abscess at left chest wall, likely communicating with the pleural space s/p drainage E. coli had been identified in the past, and he has been aggressively treated with meropenem. Heavy growth of Bacteroides on current culture is surprising given use of meropenem (may have simply been a drainage issue). He now has an Eloesser flap to allow for persistent drainage. Continue Zosyn for now DC vancomycin Duration of therapy unclear at this point Will investigate allergies and determine what oral medications will be options CHANELL SAMUEL MD October 15, 2024 10:50
[2024-10-15] MEDS: VANCOMYCIN LEVEL IV ONE ×2 (11:59→17:50)
[2024-10-15] MEDS: ringers solution, lacted 1,000 ML IV SCH (12:01)
[2024-10-15] MEDS: JUVEN Smoothie Arginine/Glut./Ca2+Bmb (Juven 19.3pkt) 240ml cup PO SCH (18:36)
--- NOTE | 2024-10-15 18:45 | PROGRESS NOTE ---
Daily Progress Note Providers to CC ~ Antibiotic Timeout Antibiotic Ordered?: Yes Subjective The patient went to the OR today has a the packing change under anesthesia and I saw the patient post up he was sitting up doing well without any signs of dyspnea, Dr. Vasquez infectious disease physician DAVID vancomycin and continue Zosyn Objective Vital Signs Date Time Temp Pulse Resp B/P (MAP) Pulse Ox O2 Delivery O2 Flow Rate FiO2 10/15/24 17:42 16 10/15/24 15:00 97.1 71 118/56 (76) 96 Nasal Cannula 3.0 10/15/24 08:14 28 Result Diagram: 10/15/2412910/15/24129 Gen. 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 Status post surgery with Dr. Nava on 10/11/2024- * Wide debridement of left chest wall. * Drainage of chest wall abscess. * Eloesser flap. * Wound VAC placement. Remains on vancomycin and Zosyn 10/[address] Jed vasquez infectious disease physician who recommends continuing IV vancomycin and Zosyn for extended period of time 10/14 packing with saturated today- Dr. Nava is taking the patient is in the OR for changing the packing tomorrow 10/15 status post packing changes today.- Dr. Jose HERNANDEZ vancomycin today # acute respiratory failure postop- to be expected with thoracic surgery and not a complication of surgery. On a ventilator managed by 10/12 extubated- on 3 L of oxygen currently 10/13 oxygen saturations is in the mid to high 90s on 2 L oxygen 10/14 remained stable 10/15 on 3 L of oxygen currently # hypertension Currently blood pressure is soft Hold blood pressure medications for now 10/13 blood pressure has improved in his in normal limits # BPH Continue doxazosin and finasteride # depression Continue bupropion # DVT prophylaxis SQ heparin Date of Service: October 15, 2024 Billing Provider: NALINI GUEVARA DO Common Visit Codes: [id number] INP/OBS CARE(HIGH) NALINI GUEVARA DO October 15, 2024 18:45
[2024-10-15] MEDS: magnesium Cl slow-release 64mg tablet PO PRN (19:41)
[2024-10-16] VITALS (9 sets, daily range): BP systolic 109–127; BP diastolic 49–64; PULSE 60–76; RESP 13–18; TEMP 97.2–98.6; O2SAT 96–99
[2024-10-16] MEDS: HYDROcodone/acetaminophen 10/325mg tab PO PRN ×2 (00:48→17:37)
--- NOTE | 2024-10-16 01:47 | OPERATIVE REPORT ---
DATE OF SURGERY: 10/15/2024 DICTATING PHYSICIAN: Tyler Nava MD PREOPERATIVE DIAGNOSIS: Status post Eloesser flap. POSTOPERATIVE DIAGNOSIS: Status post Eloesser flap. PROCEDURE PERFORMED: Change of chest packing under anesthesia. SURGEON: Tyler Nava MD PHP PROGRAMMER: None. ANESTHESIA: General/Dr. Campbell. DRAINS: None. INDICATIONS FOR OPERATION: A 74-year-old male status post Eloesser lap for a left empyema with a trapped lung. The patient is taken back to surgery for packing change. INTRAOPERATIVE FINDINGS: Clean wound. DESCRIPTION OF PROCEDURE: The patient was placed supine on the operating table after induction of IV anesthesia. Chest was prepped and draped. Packing was removed. Wound was examined and found to be relatively clean. Packing was replaced. Dressing was applied. The patient was transferred to recovery room in stable condition. Tyler Nava MD TID: [id number] RECEIPT: [id number] OJSE A/GITA/ARON
[2024-10-16 03:42] LABS: ALANINE AMINOTRANSFERASE 19 U/L (12-78); ALBUMIN 1.7 G/DL (3.4-5.0); ALBUMIN/GLOBULIN RATIO 0.4 (1.1-1.5); ALKALINE PHOSPHATASE 66 IU/L (46-116); ANION GAP 3 (8-16); ASPARTATE AMINO TRANSFERASE 12 U/L (10-37); BILIRUBIN,TOTAL 0.2 MG/DL (0.1-1.0); BLOOD UREA NITROGEN 6 MG/DL (7-18); BUN/CREATININE RATIO 7.4 (10.0-20.0); CALCIUM 8.6 MG/DL (8.5-10.1); CHLORIDE 105 MMOL/L (99-107); CREATININE 0.81 MG/DL (0.60-1.10); GLUCOSE 103 MG/DL (70-104); POTASSIUM 4.5 MMOL/L (3.5-5.1); SODIUM 143 MMOL/L (135-145); TOTAL CARBON DIOXIDE 35.3 MMOL/L (24-32); TOTAL PROTEIN 5.8 G/DL (6.4-8.2); eCRCL 88 ML/MIN; eGFR > 90 ML/MIN
--- NOTE | 2024-10-16 09:30 | RADIOLOGY REPORT ---
CHEST RADIOGRAPH Indication: POST OP Technique: Frontal view of the chest. Comparison: DI CHEST,SINGLE VIEW on DOS: 10/15/24, DI CHEST,SINGLE VIEW on DOS: 10/14/24, DI CHEST,SING LE VIEW on DOS: 10/13/24, DI CHEST,SINGLE VIEW on DOS: 10/12/24, DI CHEST,SINGLE VIEW on DOS: 10/12/24, DI CHEST,SINGLE VIEW on DOS: 10/15/24 FINDINGS: LUNGS AND PLEURAL SPACES: Large left pleural effusion. No consolidation. No pneumothorax. HEART: Unremarkable. No cardiomegaly. MEDIASTINUM: Unremarkable. Normal mediastinal contour. BONES/JOINTS: Unremarkable. No acute fracture. IMPRESSION: Postoperative changes are noted. Extensive soft tissue emphysema in the left-lateral chest wall whic h is new Large left pleural effusion.
--- NOTE | 2024-10-16 09:41 | PROGRESS NOTE ---
Progress Note Dictate Providers to CC ~ Subjective Subjective: He is not aware of any significant antibiotic allergies. He seemed surprised about likelihood of long-term draining wound. Objective Objective: GENERAL: He is a pleasant elderly male who looks stable NECK: Right internal jugular central venous catheter in place. LUNGS: With decreased breath sounds on the left side and his left chest is bandaged. HEART: Regular rate and rhythm. ABDOMEN: Soft and nondistended with a gastrostomy tube Lab Results: 10/15/24 0130 10/16/24 0300 Problem\Assessment\Plan Additional Plan Complicated infection involving left hemithorax. He was felt to have a pneumonia with parapneumonic effusion/empyema. He had undergone drainage, but there was concern for a trapped lung. Following initial thoracotomy and decortication, he went on to develop significant abscess at left chest wall, likely communicating with the pleural space s/p drainage E. coli had been identified in the past, and he has been aggressively treated with meropenem. Heavy growth of Bacteroides on current culture is surprising given use of meropenem (may have simply been a drainage issue). He now has an Eloesser flap to allow for persistent drainage. Continue Zosyn for now Trial of oral metronidazole Duration of therapy unclear at this point PT evaluation CHANELL SAMUEL MD October 16, 2024 09:41
[2024-10-16] MEDS: metroNIDAZOLE 500mg tablet PO SCH (12:56)
--- NOTE | 2024-10-16 19:53 | PROGRESS NOTE ---
Daily Progress Note Providers to CC ~ Antibiotic Timeout Antibiotic Ordered?: Yes Subjective The patient states that he has significant drainage from his left chest wall and is eager to be discharged home. Dr. Nava is taking the patient back to the OR in the a.m. Objective Vital Signs Date Time Temp Pulse Resp B/P (MAP) Pulse Ox O2 Delivery O2 Flow Rate FiO2 10/16/24 18:30 77 10/16/24 17:37 20 10/16/24 15:00 98.4 123/56 (78) 98 Nasal Cannula 3.0 10/16/24 08:37 28 Result Diagram: 10/15/24 0130 10/16/24 0300 Gen. 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 Status post surgery with Dr. Nava on 10/11/2024- * Wide debridement of left chest wall. * Drainage of chest wall abscess. * Eloesser flap. * Wound VAC placement. Remains on vancomycin and Zosyn 10/[address] Jed vasquez infectious disease physician who recommends continuing IV vancomycin and Zosyn for extended period of time 10/14 packing with saturated today- Dr. Nava is taking the patient is in the OR for changing the packing tomorrow 10/15 status post packing changes today.- Dr. Vasquez DC vancomycin today 10/16 I reviewed the chest x-ray today which is improved from yesterday's chest x-ray- Dr. Nava is taking the patient back to the OR tomorrow # acute respiratory failure postop- to be expected with thoracic surgery and not a complication of surgery. On a ventilator managed by 10/12 extubated- on 3 L of oxygen currently 10/13 oxygen saturations is in the mid to high 90s on 2 L oxygen 10/14 remained stable 10/15 on 3 L of oxygen currently 10/16 stable no acute distress remains on 3 L oxygen # hypertension Currently blood pressure is soft Hold blood pressure medications for now 10/13 blood pressure has improved in his in normal limits # BPH Continue doxazosin and finasteride # depression Continue bupropion # DVT prophylaxis SQ heparin Date of Service: October 16, 2024 Billing Provider: NALINI GUEVARA DO Common Visit Codes: [id number] INP/OBS CARE(HIGH) NALINI GUEVARA DO October 16, 2024 19:53
--- NOTE | 2024-10-16 21:29 | PROGRESS NOTE ---
Progress Note ID Providers to CC ~ Progress Note Progress Note: doing well/packing change MONTY Ramírez MD October 16, 2024 21:29
[2024-10-17] VITALS (20 sets, daily range): BP systolic 55–135; BP diastolic 49–69; PULSE 61–84; RESP 12–20; TEMP 97.6–98.9; O2SAT 93–100
[2024-10-17 06:14] LABS: BASOPHILS % (AUTO) 0.4 % (0-1); EOSINOPHILS # (AUTO) 0.2 X10'3 (0-0.9); EOSINOPHILS % (AUTO) 2.1 % (0-6); HEMATOCRIT 29.9 % (42.0-52.0); LYMPHOCYTES # (AUTO) 0.9 X10'3 (1.1-4.8); LYMPHOCYTES % (AUTO) 11.3 % (21-51); MEAN CORPUSCULAR HEMOGLOBIN 30.9 PG (27.0-31.0); MEAN CORPUSCULAR HGB CONC 33.3 g/dL (33.0-36.5); MEAN CORPUSCULAR VOLUME 92.8 FL (78-98); MEAN PLATELET VOLUME 6.3 FL (7.4-10.4); MONOCYTES # (AUTO) 0.5 X10'3 (0-0.9); MONOCYTES % (AUTO) 6.4 % (2-12); NEUTROPHILS % (AUTO) 79.8 % (42-75); PLATELET COUNT 434 X10'3 (140-440); RED BLOOD COUNT 3.23 X10'6 (4.70-6.10); RED CELL DISTRIBUTION WIDTH 17.2 % (11.5-14.5); WHITE BLOOD COUNT 7.5 X10'3 (4.5-11.0)
[2024-10-17 06:50] LABS: ALANINE AMINOTRANSFERASE 20 U/L (12-78); ALBUMIN 1.7 G/DL (3.4-5.0); ALBUMIN/GLOBULIN RATIO 0.4 (1.1-1.5); ALKALINE PHOSPHATASE 73 IU/L (46-116); ANION GAP 3 (8-16); ASPARTATE AMINO TRANSFERASE 12 U/L (10-37); BILIRUBIN,TOTAL 0.2 MG/DL (0.1-1.0); BLOOD UREA NITROGEN 5 MG/DL (7-18); BUN/CREATININE RATIO 5.8 (10.0-20.0); CALCIUM 8.8 MG/DL (8.5-10.1); CHLORIDE 102 MMOL/L (99-107); CREATININE 0.86 MG/DL (0.60-1.10); GLUCOSE 88 MG/DL (70-104); POTASSIUM 4.5 MMOL/L (3.5-5.1); SODIUM 141 MMOL/L (135-145); TOTAL CARBON DIOXIDE 36.2 MMOL/L (24-32); TOTAL PROTEIN 6.2 G/DL (6.4-8.2); eCRCL 83 ML/MIN; eGFR 87 ML/MIN
--- NOTE | 2024-10-17 07:51 | RADIOLOGY REPORT ---
EXAM: XR Chest, 1 View CLINICAL INDICATION: POST OP TECHNIQUE: Frontal view of the chest. COMPARISON: DI CHEST,SINGLE VIEW on DOS: 10/16/24, DI CHEST,SINGLE VIEW on DOS: 10/15/24, DI CHEST,SI NGLE VIEW on DOS: 10/14/24, DI CHEST,SINGLE VIEW on DOS: 10/13/24, DI CHEST,SINGLE VIEW on DOS: 10/12/24 FINDINGS: LUNGS AND PLEURAL SPACES: Left pleural effusion. No consolidation. No pneumothorax. HEART: Unremarkable. No cardiomegaly. MEDIASTINUM: Unremarkable. Normal mediastinal contour. BONES/JOINTS: Unremarkable. No acute fracture. SOFT TISSUES: Left soft tissue emphysema. OTHER FINDINGS: . . IMPRESSION: Left pleural effusion.
--- NOTE | 2024-10-17 10:27 | PROGRESS NOTE ---
Progress Note Dictate Providers to CC ~ Subjective Subjective: He states he is doing okay. He is going back to the operating room for packing change. He still wants to go home after this hospitalization. He does not want to go to rehab. He is tolerating oral metronidazole with antiemetic. Objective Objective: GENERAL: He is a pleasant elderly male who looks stable LUNGS: With decreased breath sounds on the left side and his left chest is bandaged. HEART: Regular rate and rhythm. ABDOMEN: Soft and nondistended with a gastrostomy tube Urinary catheter in place Lab Results: 10/17/24 0546 10/17/24 0546 Problem\Assessment\Plan Additional Plan Complicated infection involving left hemithorax. He was felt to have a pneumonia with parapneumonic effusion/empyema. He had undergone drainage, but there was concern for a trapped lung. Following initial thoracotomy and decortication, he went on to develop significant abscess at left chest wall, likely communicating with the pleural space s/p drainage E. coli had been identified in the past, and he has been aggressively treated with meropenem. Heavy growth of Bacteroides on current culture is surprising given use of meropenem (may have simply been a drainage issue). He now has an Eloesser flap to allow for persistent drainage. DC Zosyn soon Continue oral metronidazole Trial of oral Bactrim Duration of therapy unclear at this point Back to OR today DC urinary catheter tomorrow Continue with PT CHANELL SAMUEL MD October 17, 2024 10:27
[2024-10-17] MEDS: ondansetron 4mg rapidly disintigrating tab PO SCH (12:50)
[2024-10-17] MEDS: sulfamethoxazole/trimethoprim DS (800/160mg) tablet PO SCH (13:24)
[2024-10-17] MEDS ORDERED: LIDOcaine 1% 30ml preserv. free vial ONE (13:26)
[2024-10-17] MEDS ORDERED: fentaNYL /PF 50mcg/ml 5ml ampule ONE (14:10)
[2024-10-17] MEDS ORDERED: MIDAZolam 1 MG/ML 5ML VIAL ONE (14:10)
--- NOTE | 2024-10-17 14:12 | PROGRESS NOTE ---
Progress Note ID Providers to CC ~ Progress Note Progress Note: discussed procedure including risks/benefits/alternatives MONTY WAYNE MD October 17, 2024 14:12
--- NOTE | 2024-10-17 14:37 | OPERATIVE REPORT ---
Operative Report Providers to CC ~ Date of Procedure: October 17, 2024 Pre-Operative Diagnosis: s/p elloesser flap Post-Operative Diagnosis SAME as PRE-Op Procedure Performed eua/chest cavity packing change Surgeon: manuel mckeon Type of Anesthesia: General Findings: clean wound Estimated Blood Loss: min Specimen Removed: none MONTY WAYNE MD October 17, 2024 14:37
--- NOTE | 2024-10-17 19:28 | PROGRESS NOTE- Residence ---
Progress Note - Resident Providers to CC Resident Creating Document: STEVE ROY CC: RAMIRO ZHOU MD ~ Antibiotic Timeout Antibiotic Ordered?: Yes Subjective Patient was seen at bedside today. He reports some improvement in breathing. Denies significant pain, fevers or chills. He has awaiting to undergo packing changing today Objective Vital Signs Date Time Temp Pulse Resp B/P (MAP) Pulse Ox O2 Delivery O2 Flow Rate FiO2 10/17/24 18:15 72 15 121/56 (77) 96 Nasal Cannula 3.0 10/17/24 15:30 98.0 10/17/24 07:48 28 Result Diagram: 10/17/24 0546 10/17/24 0546 General: Elderly frail man, awake, alert oriented to place, time, and person HEENT: No pallor present, no icterus, moist mucous membranes Neck: No masses and tenderness Resp: Unlabored. Decreased breath sounds with crackles, most prominently in left lung base. Heart: Regular Rate and rhythm, normal S1 and S2 without murmur, rub or gallop Abdomen: Soft and non tender no organomegaly, no guarding and rigidity, bowel sounds present Neuro: No weakness in the upper and lower limb muscles, power of the muscles 4/5 bilateral upper and lower muscles, knee reflex present bilaterally. Cranial nerves intact Extremities: No cyanosis,clubbing or edema Skin: Warm and Dry. 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 Status post surgery with Dr. Nava on 10/11/2024- * Wide debridement of left chest wall. * Drainage of chest wall abscess. * Eloesser flap. * Wound VAC placement. Completed vancomycin and Zosyn Start p.o. Flagyl per Dr. Garcia Undergoing packing change by Dr. Nava today Acute respiratory failure postop- to be expected with thoracic surgery and not a complication of surgery, resolved Patient is at baseline oxygen 1-2 L via nasal cannula BPH Continue doxazosin and finasteride Depression Continue bupropion Code Status: Full code PT: Yes Prognosis: Guarded Disposition: Continue care in PCU. Continue recommendations by Dr. Nava. Possible discharge home in a day or two Steve Frey MD Internal Medicine Resident PGY-1 Date of Service: October 17, 2024 Billing Provider: RAMIRO ZHOU MD Common Visit Codes: [id number] INP/OBS CARE(HIGH) JOSE L FREYSTEVE GARCIA October 17, 2024 19:28 RAMIRO ZHOU MD October 25, 2024 14:07
[2024-10-18] VITALS (11 sets, daily range): BP systolic 104–129; BP diastolic 44–81; PULSE 68–80; RESP 16–21; TEMP 97.3–98.4; O2SAT 70–97
--- NOTE | 2024-10-18 01:29 | OPERATIVE REPORT ---
DATE OF SURGERY: 10/17/2024 DICTATING PHYSICIAN: Tyler Nava MD PREOPERATIVE DIAGNOSIS: Status post Eloesser flap. POSTOPERATIVE DIAGNOSIS: Status post Eloesser flap. PROCEDURE PERFORMED: Exam under anesthesia with chest cavity packing change. SURGEON: Tyler Nava MD NUCLEAR CHEMISTRY TECHNICIAN: Shana. ANESTHESIA: General/Dr. Campbell. DRAINS: None. INDICATIONS FOR OPERATION: A 74-year-old male with Eloesser flap surgery for chest cavity dressing change. INTRAOPERATIVE FINDINGS: Clean wound. DESCRIPTION OF PROCEDURE: The patient was placed supine on the operating table. After induction of general anesthesia, the patient was placed in the lateral position. Chest was then prepped and draped. Previously placed packing was removed. A new packing was then placed without incident. packing was then placed and the patient was transferred to recovery. Tyler Nava MD TID: [id number] RECEIPT: [id number] /[facility]/[place]
[2024-10-18 06:24] LABS: BASOPHILS % (AUTO) 0.4 % (0-1); EOSINOPHILS # (AUTO) 0.2 X10'3 (0-0.9); EOSINOPHILS % (AUTO) 1.9 % (0-6); HEMATOCRIT 31.6 % (42.0-52.0); HEMOGLOBIN 10.3 g/dl (14.0-17.9); LYMPHOCYTES # (AUTO) 0.9 X10'3 (1.1-4.8); LYMPHOCYTES % (AUTO) 9.7 % (21-51); MEAN CORPUSCULAR HEMOGLOBIN 30.1 PG (27.0-31.0); MEAN CORPUSCULAR HGB CONC 32.6 g/dL (33.0-36.5); MEAN CORPUSCULAR VOLUME 92.2 FL (78-98); MEAN PLATELET VOLUME 6.4 FL (7.4-10.4); MONOCYTES # (AUTO) 0.6 X10'3 (0-0.9); MONOCYTES % (AUTO) 6.1 % (2-12); NEUTROPHILS # (AUTO) 7.5 X10'3 (1.8-7.7); NEUTROPHILS % (AUTO) 81.9 % (42-75); PLATELET COUNT 464 X10'3 (140-440); RED BLOOD COUNT 3.42 X10'6 (4.70-6.10); RED CELL DISTRIBUTION WIDTH 17.3 % (11.5-14.5); WHITE BLOOD COUNT 9.2 X10'3 (4.5-11.0)
[2024-10-18 06:37] LABS: ALANINE AMINOTRANSFERASE 22 U/L (12-78); ALBUMIN 1.8 G/DL (3.4-5.0); ALBUMIN/GLOBULIN RATIO 0.4 (1.1-1.5); ALKALINE PHOSPHATASE 78 IU/L (46-116); ANION GAP 5 (8-16); ASPARTATE AMINO TRANSFERASE 14 U/L (10-37); BILIRUBIN,TOTAL 0.1 MG/DL (0.1-1.0); BLOOD UREA NITROGEN 6 MG/DL (7-18); BUN/CREATININE RATIO 6.9 (10.0-20.0); CALCIUM 8.9 MG/DL (8.5-10.1); CHLORIDE 102 MMOL/L (99-107); CREATININE 0.87 MG/DL (0.60-1.10); GLUCOSE 91 MG/DL (70-104); POTASSIUM 4.4 MMOL/L (3.5-5.1); SODIUM 140 MMOL/L (135-145); TOTAL CARBON DIOXIDE 32.9 MMOL/L (24-32); TOTAL PROTEIN 6.4 G/DL (6.4-8.2); eCRCL 82 ML/MIN; eGFR 86 ML/MIN
--- NOTE | 2024-10-18 11:29 | PROGRESS NOTE- Residence ---
Progress Note - Resident Providers to CC Resident Creating Document: SHELLEY ROY CC: RAMIRO ZHOU MD ~ Antibiotic Timeout Antibiotic Ordered?: Yes Subjective Patient was seen at bedside today. No overnight events. He denies any significant pain, no fevers or chills Objective Vital Signs Date Time Temp Pulse Resp B/P (MAP) Pulse Ox O2 Delivery O2 Flow Rate FiO2 10/18/24 08:28 16 10/18/24 06:00 98.0 68 129/44 (72) 95 Nasal Cannula 2.0 10/18/24 00:08 32 Result Diagram: 10/18/2454310/18/24543 General: Elderly frail man, awake, alert oriented to place, time, and person HEENT: No pallor present, no icterus, moist mucous membranes Neck: No masses and tenderness Resp: Unlabored. Decreased breath sounds with crackles, most prominently in left lung base. Chest: Left hemothorax covered with clean dressing Heart: Regular Rate and rhythm, normal S1 and S2 without murmur, rub or gallop Abdomen: Soft and non tender no organomegaly, no guarding and rigidity, bowel sounds present Neuro: No weakness in the upper and lower limb muscles, power of the muscles 4/5 bilateral upper and lower muscles, knee reflex present bilaterally. Cranial nerves intact Extremities: No cyanosis,clubbing or edema Skin: Warm and Dry. 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 Nava on 10/11/2024- * Wide debridement of left chest wall. * Drainage of chest wall abscess. * Eloesser flap. * Wound VAC placement. Completed vancomycin and Zosyn On p.o. Flagyl and Bactrim per Dr. Garcia, day 2. Uncertain duration at this time Underwent packing change with Dr. Nava yesterday Normocytic normochromic anemia Hemoglobin stable Continue monitoring H&H Acute respiratory failure postop- to be expected with thoracic surgery and not a complication of surgery, resolved Patient is at baseline oxygen 1-2 L via nasal cannula BPH Continue doxazosin and finasteride Depression Continue bupropion Code Status: Full code PT: Yes Prognosis: Guarded Disposition: Continue care in PCU. Continue recommendations by Dr. Nava and SHEY Hernandes MD Internal Medicine Resident PGY-1 Date of Service: October 18, 2024 Billing Provider: RAMIRO ZHOU MD Common Visit Codes: [id number] INP/OBS CARE(HIGH) SHELLEY ROY October 18, 2024 11:29 RAMIRO ZHOU MD October 25, 2024 14:07
--- NOTE | 2024-10-18 11:31 | PROGRESS NOTE ---
Progress Note Dictate Providers to CC ~ Subjective Subjective: He states that he is tolerating the oral antibiotics. Packing was changed yesterday. Objective Objective: GENERAL: He is a pleasant elderly male who looks stable LUNGS: With decreased breath sounds on the left side and his left chest is bandaged. HEART: Regular rate and rhythm. ABDOMEN: Soft and nondistended with a gastrostomy tube Urinary catheter in place Lab Results: 10/18/2454310/18/24543 Problem\Assessment\Plan Additional Plan Complicated infection involving left hemithorax. He was felt to have a pneumonia with parapneumonic effusion/empyema. He had undergone drainage, but there was concern for a trapped lung. Following initial thoracotomy and decortication, he went on to develop significant abscess at left chest wall, likely communicating with the pleural space s/p drainage E. coli had been identified in the past, and he has been aggressively treated with meropenem. Heavy growth of Bacteroides on current culture is surprising given use of meropenem (may have simply been a drainage issue). He now has an Eloesser flap to allow for persistent drainage. DC Zosyn Continue oral metronidazole Continue oral Bactrim Zofran prior to oral antibiotics Duration of therapy unclear at this point DC urinary catheter Continue with PT CHANELL SAMUEL MD October 18, 2024 11:31
--- NOTE | 2024-10-18 19:51 | PROGRESS NOTE ---
Progress Note ID Providers to CC ~ Progress Note Progress Note: doing well/cont supportive care MONTY WAYNE MD October 18, 2024 19:51
[2024-10-18] MEDS: magnesium hydroxide 30ml (MOM) UD suspension PO PRN (21:11)
[2024-10-19] VITALS (8 sets, daily range): BP systolic 95–127; BP diastolic 46–63; PULSE 65–83; RESP 11–20; TEMP 97.5–98; O2SAT 92–95
[2024-10-19 06:51] LABS: BASOPHILS % (AUTO) 0.4 % (0-1); EOSINOPHILS # (AUTO) 0.1 X10'3 (0-0.9); EOSINOPHILS % (AUTO) 1.3 % (0-6); HEMATOCRIT 31.3 % (42.0-52.0); HEMOGLOBIN 10.4 g/dl (14.0-17.9); LYMPHOCYTES # (AUTO) 1.1 X10'3 (1.1-4.8); LYMPHOCYTES % (AUTO) 13.9 % (21-51); MEAN CORPUSCULAR HEMOGLOBIN 30.7 PG (27.0-31.0); MEAN CORPUSCULAR HGB CONC 33.4 g/dL (33.0-36.5); MEAN CORPUSCULAR VOLUME 92.1 FL (78-98); MEAN PLATELET VOLUME 6.3 FL (7.4-10.4); MONOCYTES # (AUTO) 0.6 X10'3 (0-0.9); MONOCYTES % (AUTO) 7.8 % (2-12); NEUTROPHILS # (AUTO) 6.1 X10'3 (1.8-7.7); NEUTROPHILS % (AUTO) 76.6 % (42-75); PLATELET COUNT 455 X10'3 (140-440); RED CELL DISTRIBUTION WIDTH 17.9 % (11.5-14.5); WHITE BLOOD COUNT 7.9 X10'3 (4.5-11.0)
[2024-10-19 07:16] LABS: ALANINE AMINOTRANSFERASE 19 U/L (12-78); ALBUMIN 1.9 G/DL (3.4-5.0); ALBUMIN/GLOBULIN RATIO 0.4 (1.1-1.5); ALKALINE PHOSPHATASE 78 IU/L (46-116); ANION GAP 5 (8-16); ASPARTATE AMINO TRANSFERASE 18 U/L (10-37); BILIRUBIN,TOTAL 0.2 MG/DL (0.1-1.0); BLOOD UREA NITROGEN 7 MG/DL (7-18); BUN/CREATININE RATIO 8.1 (10.0-20.0); CALCIUM 9.1 MG/DL (8.5-10.1); CHLORIDE 102 MMOL/L (99-107); CREATININE 0.86 MG/DL (0.60-1.10); GLUCOSE 97 MG/DL (70-104); POTASSIUM 4.3 MMOL/L (3.5-5.1); SODIUM 138 MMOL/L (135-145); TOTAL CARBON DIOXIDE 31.2 MMOL/L (24-32); TOTAL PROTEIN 6.4 G/DL (6.4-8.2); eCRCL 83 ML/MIN; eGFR 87 ML/MIN
[2024-10-19] MEDS: lactose-reduced food (Ensure Enlive) - 237ml bottle PO SCH (08:35)
--- NOTE | 2024-10-19 11:20 | PROGRESS NOTE- Residence ---
Progress Note - Resident Providers to CC Resident Creating Document: STEVE ROY CC: RAMIRO ZHOU MD ~ Antibiotic Timeout Antibiotic Ordered?: Yes Subjective Patient was seen at bedside today. He is still constipated, asking for prune juice. He states his stomach has been upset since last night, slightly better now Objective Vital Signs Date Time Temp Pulse Resp B/P (MAP) Pulse Ox O2 Delivery O2 Flow Rate FiO2 10/19/24 02:00 97.9 71 16 127/57 (80) 95 Nasal Cannula 2.0 10/18/24 23:40 28 Result Diagram: 10/19/2463010/19/24630 General: Elderly frail man, awake, alert oriented to place, time, and person HEENT: No pallor present, no icterus, moist mucous membranes Neck: No masses and tenderness Resp: Unlabored. Decreased breath sounds with crackles, most prominently in left lung base. Chest: Left hemothorax covered with clean dressing Heart: Regular Rate and rhythm, normal S1 and S2 without murmur, rub or gallop Abdomen: Soft and non tender no organomegaly, no guarding and rigidity, bowel sounds present Neuro: No weakness in the upper and lower limb muscles, power of the muscles 4/5 bilateral upper and lower muscles, knee reflex present bilaterally. Cranial nerves intact Extremities: No cyanosis,clubbing or edema Skin: Warm and Dry. 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 Nava on 10/11/2024- * Wide debridement of left chest wall. * Drainage of chest wall abscess. * Eloesser flap. * Wound VAC placement. Completed vancomycin and Zosyn On p.o. Flagyl and Bactrim per Dr. Garcia, day 3. Uncertain duration at this time Continue recommendations by Dr Nava Normocytic normochromic anemia Hemoglobin stable Continue monitoring H&H Acute respiratory failure postop- to be expected with thoracic surgery and not a complication of surgery, resolved Patient is at baseline oxygen 1-2 L via nasal cannula BPH Continue doxazosin and finasteride Depression Continue bupropion Code Status: Full code PT: Yes Prognosis: Guarded Disposition: Continue care in PCU. Continue recommendations by Dr. Nava and ID. Patient will likely need rehab Steve Frey MD Internal Medicine Resident PGY-1 Date of Service: October 19, 2024 Billing Provider: RAMIRO ZHOU MD Common Visit Codes: [id number] INP/OBS CARE(HIGH) JOSE L FREYSTEVE LUIS October 19, 2024 11:20 RAMIRO ZHOU MD October 25, 2024 14:08
--- NOTE | 2024-10-19 18:38 | PROGRESS NOTE ---
Progress Note ID Providers to CC ~ Progress Note Progress Note: doing well/packing change in am MONTY WAYNE MD October 19, 2024 18:38
[2024-10-20] VITALS (9 sets, daily range): BP systolic 90–137; BP diastolic 46–65; PULSE 70–94; RESP 16–20; TEMP 97.1–97.7; O2SAT 95–97
[2024-10-20 06:47] LABS: BASOPHILS % (AUTO) 0.4 % (0-1); EOSINOPHILS # (AUTO) 0.1 X10'3 (0-0.9); EOSINOPHILS % (AUTO) 1.2 % (0-6); HEMOGLOBIN 10.4 g/dl (14.0-17.9); LYMPHOCYTES # (AUTO) 1.1 X10'3 (1.1-4.8); LYMPHOCYTES % (AUTO) 12.3 % (21-51); MEAN CORPUSCULAR HEMOGLOBIN 30.6 PG (27.0-31.0); MEAN CORPUSCULAR HGB CONC 33.6 g/dL (33.0-36.5); MEAN CORPUSCULAR VOLUME 91.1 FL (78-98); MEAN PLATELET VOLUME 6.6 FL (7.4-10.4); MONOCYTES # (AUTO) 0.7 X10'3 (0-0.9); MONOCYTES % (AUTO) 7.9 % (2-12); NEUTROPHILS # (AUTO) 6.8 X10'3 (1.8-7.7); NEUTROPHILS % (AUTO) 78.2 % (42-75); PLATELET COUNT 458 X10'3 (140-440); RED CELL DISTRIBUTION WIDTH 17.7 % (11.5-14.5); WHITE BLOOD COUNT 8.7 X10'3 (4.5-11.0)
[2024-10-20 07:06] LABS: ALANINE AMINOTRANSFERASE 22 U/L (12-78); ALBUMIN 1.9 G/DL (3.4-5.0); ALBUMIN/GLOBULIN RATIO 0.4 (1.1-1.5); ALKALINE PHOSPHATASE 74 IU/L (46-116); ANION GAP 5 (8-16); ASPARTATE AMINO TRANSFERASE 37 U/L (10-37); BILIRUBIN,TOTAL 0.2 MG/DL (0.1-1.0); BLOOD UREA NITROGEN 11 MG/DL (7-18); BUN/CREATININE RATIO 12.2 (10.0-20.0); CALCIUM 8.9 MG/DL (8.5-10.1); CHLORIDE 102 MMOL/L (99-107); GLUCOSE 97 MG/DL (70-104); POTASSIUM 4.5 MMOL/L (3.5-5.1); SODIUM 138 MMOL/L (135-145); TOTAL CARBON DIOXIDE 30.6 MMOL/L (24-32); TOTAL PROTEIN 6.3 G/DL (6.4-8.2); eCRCL 79 ML/MIN; eGFR 82 ML/MIN
--- NOTE | 2024-10-20 10:33 | PROGRESS NOTE- Residence ---
Progress Note - Resident Providers to CC Resident Creating Document: JOSE L MAYRADHASTEVETANI GONZALEZ CC: RAMIRO ZHOU MD ~ Antibiotic Timeout Antibiotic Ordered?: Yes Subjective Patient was seen at bedside today. Patient had 3 bowel movements yesterday. He is complaining of some left flank pain that comes and goes, but when it comes it is up to a 10/10. He does not believe is related to his surgical site Objective Vital Signs Date Time Temp Pulse Resp B/P (MAP) Pulse Ox O2 Delivery O2 Flow Rate FiO2 10/20/24 09:17 14 10/20/24 06:30 85 10/20/24 02:00 97.7 137/65 (89) 95 Nasal Cannula 3.0 10/19/24 20:47 28 Result Diagram: 10/20/2461210/20/24621 General: Elderly frail man, awake, alert oriented to place, time, and person HEENT: No pallor present, no icterus, moist mucous membranes Neck: No masses and tenderness Resp: Unlabored. Absent breath sounds on the left. Normal breath sounds on the right Chest: Left hemothorax covered with clean dressing Heart: Regular Rate and rhythm, normal S1 and S2 without murmur, rub or gallop Abdomen: Soft and non tender no organomegaly, no guarding and rigidity, bowel sounds present Neuro: No weakness in the upper and lower limb muscles, power of the muscles 4/5 bilateral upper and lower muscles, knee reflex present bilaterally. Cranial nerves intact Extremities: No cyanosis,clubbing or edema Skin: Warm and Dry. 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 Nava on 10/11/2024- * Wide debridement of left chest wall. * Drainage of chest wall abscess. * Eloesser flap. * Wound VAC placement. Completed vancomycin and Zosyn On p.o. Flagyl and Bactrim per Dr. Garcia, day 4. Uncertain duration at this time Packing change today per Dr Nava Continue recommendations by Dr Nava Abdominal pain Constipation Abdominal pain likely from constipation, as bowel movements yesterday were not large Will repeat urinalysis, although unlikely source in view of patient being on Bactrim Continue milk of magnesia Will provide prune juice as patient states this has helped in the past Normocytic normochromic anemia Hemoglobin stable Continue monitoring H&H Acute respiratory failure postop- to be expected with thoracic surgery and not a complication of surgery, resolved Patient is at baseline oxygen 1-2 L via nasal cannula BPH Continue doxazosin and finasteride Depression Continue bupropion Code Status: Full code PT: Yes Prognosis: Guarded Disposition: Continue care in PCU. Continue recommendations by Dr. Nava and ID. Patient will likely need rehab Steve Frey MD Internal Medicine Resident PGY-1 Date of Service: October 20, 2024 Billing Provider: RAMIRO ZHOU MD Common Visit Codes: [id number] INP/OBS CARE(HIGH) STEVE ROY October 20, 2024 10:33 RAMIRO ZHOU MD October 25, 2024 14:08
--- NOTE | 2024-10-20 19:13 | PROGRESS NOTE ---
Progress Note ID Providers to CC ~ Progress Note Progress Note: doing well/packing changed MONTY WAYNE MD October 20, 2024 19:13
[2024-10-21] VITALS (9 sets, daily range): BP systolic 90–126; BP diastolic 45–58; PULSE 72–93; RESP 13–22; TEMP 96.9–98; O2SAT 72–97
[2024-10-21 06:26] LABS: BASOPHILS % (AUTO) 0.4 % (0-1); EOSINOPHILS # (AUTO) 0.1 X10'3 (0-0.9); EOSINOPHILS % (AUTO) 1.7 % (0-6); HEMATOCRIT 31.3 % (42.0-52.0); HEMOGLOBIN 10.2 g/dl (14.0-17.9); LYMPHOCYTES # (AUTO) 1.4 X10'3 (1.1-4.8); LYMPHOCYTES % (AUTO) 18.9 % (21-51); MEAN CORPUSCULAR HEMOGLOBIN 30.2 PG (27.0-31.0); MEAN CORPUSCULAR HGB CONC 32.7 g/dL (33.0-36.5); MEAN CORPUSCULAR VOLUME 92.1 FL (78-98); MEAN PLATELET VOLUME 6.8 FL (7.4-10.4); MONOCYTES # (AUTO) 0.8 X10'3 (0-0.9); MONOCYTES % (AUTO) 10.6 % (2-12); NEUTROPHILS # (AUTO) 5.2 X10'3 (1.8-7.7); NEUTROPHILS % (AUTO) 68.4 % (42-75); PLATELET COUNT 456 X10'3 (140-440); RED BLOOD COUNT 3.39 X10'6 (4.70-6.10); RED CELL DISTRIBUTION WIDTH 17.9 % (11.5-14.5); WHITE BLOOD COUNT 7.6 X10'3 (4.5-11.0)
--- NOTE | 2024-10-21 15:46 | PROGRESS NOTE ---
Progress Note ID Providers to CC ~ Progress Note Progress Note: DOING WELL/OK FOR REHAB/NEEDS DAILY PACKING OF CHEST WOUND MONTY WAYNE MD October 21, 2024 15:46
--- NOTE | 2024-10-21 16:37 | PROGRESS NOTE- Residence ---
Progress Note - Resident Providers to CC Resident Creating Document: HOLLIE LANDRUM, RES CC: RAMIRO ZHOU MD ~ Antibiotic Timeout Antibiotic Ordered?: Yes Subjective Patient was seen at bedside today. Patient had 3 bowel movements yesterday. He is complaining of some left flank pain that comes and goes, but when it comes it is up to a 10/10. 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 Nava on 10/11/2024- * Wide debridement of left chest wall. * Drainage of chest wall abscess. * Eloesser flap. * Wound VAC placement. Completed vancomycin and Zosyn On p.o. Flagyl and Bactrim per Dr. Garcia, day 4. Uncertain duration at this time Packing change today per Dr Nava Continue recommendations by Dr Nava Abdominal pain Constipation Abdominal pain likely from constipation, as bowel movements yesterday were not large Will repeat urinalysis, although unlikely source in view of patient being on Bactrim Continue milk of magnesia Will provide prune juice as patient states this has helped in the past Normocytic normochromic anemia Hemoglobin stable Continue monitoring H&H Acute respiratory failure postop- to be expected with thoracic surgery and not a complication of surgery, resolved Patient is at baseline oxygen 1-2 L via nasal cannula BPH Continue doxazosin and finasteride Depression Continue bupropion Code Status: Full code PT: Yes Prognosis: Guarded Disposition: Continue care in PCU. Continue recommendations by Dr. Nava and ID. Patient will likely need rehab Steve Hernandes MD Internal Medicine Resident PGY-1 HOLLIE LANDRUM, IVIS October 21, 2024 16:37
--- NOTE | 2024-10-21 16:51 | PROGRESS NOTE- Residence ---
Progress Note - Resident Providers to CC Resident Creating Document: HOLLIE ARBOLEDA, IVIS CC: RAMIRO ZHOU MD ~ Antibiotic Timeout Antibiotic Ordered?: Yes Subjective Patient was seen at bedside today. Patient states that his pain is much improved, no acute overnight events. Objective Vital Signs Date Time Temp Pulse Resp B/P (MAP) Pulse Ox O2 Delivery O2 Flow Rate FiO2 10/21/24 15:17 22 10/21/24 15:00 97.2 93 98/55 (69) 94 Nasal Cannula 3.0 10/21/24 07:43 32 Result Diagram: 10/21/24 0552 10/20/24 0622 General: Elderly male, Alert, awake, oriented HEENT: PERRLA, no icterus, pallor, lymphadenopathy, carotid bruit Respiratory system: Left hemothorax covered with clean dressing, no adventitious breath sounds, absent breath sounds on the left side CVS: S1-S2 heard, no murmurs/rubs/gallop GI: Soft, nontender, no organomegaly, no guarding/rigidity, bowel sounds present Neuro: No focal neurological deficits present Extremities: No edema cyanosis clubbing/deformities Skin: Warm and dry Assessment Assessment 74-year-old male was transferred for Vibra in view of chest wall abscess. Patient is admitted for the management and evaluation of recurrent left-sided empyema with chest wall extension. 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 Nava on 10/11/2024- * Wide debridement of left chest wall. * Drainage of chest wall abscess. * Eloesser flap. * Wound VAC placement. Completed vancomycin and Zosyn On p.o. Flagyl and Bactrim per Dr. Garcia, day 4. Uncertain duration at this time Packing change today per Dr Nava Continue recommendations by Dr Nava Abdominal pain Constipation Abdominal pain likely from constipation, as bowel movements yesterday were not large Will repeat urinalysis, although unlikely source in view of patient being on Bactrim Continue milk of magnesia Will provide prune juice as patient states this has helped in the past Normocytic normochromic anemia Hemoglobin stable Continue monitoring H&H Acute respiratory failure postop- to be expected with thoracic surgery and not a complication of surgery, resolved Patient is at baseline oxygen 1-2 L via nasal cannula BPH Continue doxazosin and finasteride Depression Continue bupropion Code Status: Full code PT: Yes Prognosis: Guarded Disposition: Continue care in PCU. Patient can be discharged to rehab tomorrow, cleared for discharge to rehab by Dr. Brandy Arboleda MD Internal Medicine, PGY 1 Date of Service: October 21, 2024 Billing Provider: RAMIRO ZHOU MD Common Visit Codes: [id number] INP/OBS CARE(HIGH) HOLLIE ARBOLEDA, RES October 21, 2024 16:51 RAMIRO ZHOU MD October 25, 2024 14:08
[2024-10-22] VITALS (9 sets, daily range): BP systolic 91–119; BP diastolic 51–62; PULSE 71–104; RESP 16–22; TEMP 96.9–98.2; O2SAT 94–97
[2024-10-22 08:09] LABS: BASOPHILS % (AUTO) 0.2 % (0-1); EOSINOPHILS # (AUTO) 0.1 X10'3 (0-0.9); EOSINOPHILS % (AUTO) 1.2 % (0-6); HEMATOCRIT 32.8 % (42.0-52.0); HEMOGLOBIN 11.1 g/dl (14.0-17.9); LYMPHOCYTES % (AUTO) 9.5 % (21-51); MEAN CORPUSCULAR HGB CONC 33.8 g/dL (33.0-36.5); MEAN CORPUSCULAR VOLUME 91.6 FL (78-98); MEAN PLATELET VOLUME 6.7 FL (7.4-10.4); MONOCYTES # (AUTO) 0.8 X10'3 (0-0.9); MONOCYTES % (AUTO) 7.6 % (2-12); NEUTROPHILS # (AUTO) 8.6 X10'3 (1.8-7.7); NEUTROPHILS % (AUTO) 81.5 % (42-75); PLATELET COUNT 466 X10'3 (140-440); RED BLOOD COUNT 3.58 X10'6 (4.70-6.10); RED CELL DISTRIBUTION WIDTH 17.7 % (11.5-14.5); WHITE BLOOD COUNT 10.6 X10'3 (4.5-11.0)
[2024-10-22 08:26] LABS: ALANINE AMINOTRANSFERASE 23 U/L (12-78); ALBUMIN 2.1 G/DL (3.4-5.0); ALBUMIN/GLOBULIN RATIO 0.4 (1.1-1.5); ALKALINE PHOSPHATASE 82 IU/L (46-116); ANION GAP 5 (8-16); ASPARTATE AMINO TRANSFERASE 24 U/L (10-37); BILIRUBIN,TOTAL 0.2 MG/DL (0.1-1.0); BLOOD UREA NITROGEN 9 MG/DL (7-18); BUN/CREATININE RATIO 9.4 (10.0-20.0); CHLORIDE 101 MMOL/L (99-107); CREATININE 0.96 MG/DL (0.60-1.10); GLUCOSE 98 MG/DL (70-104); POTASSIUM 4.5 MMOL/L (3.5-5.1); SODIUM 134 MMOL/L (135-145); TOTAL CARBON DIOXIDE 28.5 MMOL/L (24-32); TOTAL PROTEIN 6.8 G/DL (6.4-8.2); eCRCL 74 ML/MIN; eGFR 77 ML/MIN
--- NOTE | 2024-10-22 10:19 | PROGRESS NOTE ---
Progress Note Dictate Providers to CC ~ Subjective Subjective: He is having a terrible time with the oral antibiotics. He describes abdominal discomfort and nausea. Ondansetron provides a little bit of benefit but certainly not enough to keep him reasonably comfortable. Objective Objective: GENERAL: He is a pleasant elderly male who looks stable LUNGS: With decreased breath sounds on the left side and his left chest is bandaged. HEART: Regular rate and rhythm. ABDOMEN: Soft and nondistended with a gastrostomy tube Lab Results: 10/22/24 0739 10/22/24 0739 Problem\Assessment\Plan Additional Plan Complicated infection involving left hemithorax. He was felt to have a pneumonia with parapneumonic effusion/empyema. He had undergone drainage, but there was concern for a trapped lung. Following initial thoracotomy and decortication, he went on to develop significant abscess at left chest wall, likely communicating with the pleural space s/p drainage E. coli had been identified in the past, and he has been aggressively treated with meropenem. Heavy growth of Bacteroides on current culture is surprising given use of meropenem (may have simply been a drainage issue). He now has an Eloesser flap to allow for persistent drainage. Discontinue oral metronidazole and Bactrim Trial of oral Augmentin Zofran prior to oral antibiotics He may need to go back to IV therapy for a period of time if he cannot tolerate oral therapy Duration of therapy unclear at this point CHANELL SAMUEL MD October 22, 2024 10:19
[2024-10-22] MEDS: ondansetron 4mg rapidly disintigrating tab PO SCH (17:38)
[2024-10-22] MEDS: amox tr/potassium clavulanate 875/125mg TAB PO SCH (17:39)
--- NOTE | 2024-10-22 18:48 | PROGRESS NOTE- Residence ---
Progress Note - Resident Providers to CC Resident Creating Document: JOSE L FREYSTEVETANI GONZALEZ CC: RAMIRO ZHOU MD ~ Antibiotic Timeout Antibiotic Ordered?: Yes Subjective Patient was seen at bedside today. Patient states that his pain is much improved, no acute overnight events. Objective Vital Signs Date Time Temp Pulse Resp B/P (MAP) Pulse Ox O2 Delivery O2 Flow Rate FiO2 10/22/24 15:00 97.3 92 19 104/62 (76) 97 Nasal Cannula 3.0 10/22/24 07:49 32 Result Diagram: 10/22/24 0739 10/22/24 0739 General: Elderly frail man, awake, alert oriented to place, time, and person HEENT: No pallor present, no icterus, moist mucous membranes Neck: No masses and tenderness Resp: Unlabored. Absent breath sounds on the left. Normal breath sounds on the right Chest: Left hemothorax covered with clean dressing Heart: Regular Rate and rhythm, normal S1 and S2 without murmur, rub or gallop Abdomen: Soft and non tender no organomegaly, no guarding and rigidity, bowel sounds present Neuro: No weakness in the upper and lower limb muscles, power of the muscles 4/5 bilateral upper and lower muscles, knee reflex present bilaterally. Cranial nerves intact Extremities: No cyanosis,clubbing or edema Skin: Warm and Dry. No lesions Assessment Assessment 74-year-old male was transferred for Vibra in view of chest wall abscess. Patient is admitted for the management and evaluation of recurrent left-sided empyema with chest wall extension. 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 Nava on 10/11/2024- * Wide debridement of left chest wall. * Drainage of chest wall abscess. * Eloesser flap. * Wound VAC placement. Completed vancomycin and Zosyn Completed 6 days of Flagyl and Bactrim, DC today per Dr. Garcia as patient was not tolerating well Dr. Garcia we will start a trial of Augmentin, if not tolerated will consider going back to IV antibiotics Duration of treatment still undetermined per Dr. Garcia Continue recommendations by Dr Nava Abdominal pain, likely side effect from antibiotics Constipation, improved Abdominal pain likely from constipation, as bowel movements yesterday were not large Will repeat urinalysis, although unlikely source in view of patient being on Bactrim Continue milk of magnesia p.r.n. Continue prune juice p.r.n. Normocytic normochromic anemia Hemoglobin stable Continue monitoring H&H Acute respiratory failure postop- to be expected with thoracic surgery and not a complication of surgery, resolved Patient is at baseline oxygen 1-2 L via nasal cannula BPH Continue doxazosin and finasteride Depression Continue bupropion Code Status: Full code PT: Yes Prognosis: Guarded Disposition: Continue care in PCU. Patient can be discharged to rehab tomorrow, cleared for discharge to rehab by Dr. Nava. Continue recommendations per ID, may require IV antibiotics Steve Frey MD Internal Medicine Resident PGY-1 Date of Service: October 22, 2024 Billing Provider: RAMIRO ZHOU MD Common Visit Codes: [id number] INP/OBS CARE(HIGH) STEVE ROY October 22, 2024 18:48 RAMIRO ZHOU MD October 25, 2024 14:17
[2024-10-23] VITALS (8 sets, daily range): BP systolic 99–121; BP diastolic 54–66; PULSE 74–106; RESP 13–19; TEMP 97.2–98.3; O2SAT 94–97
--- NOTE | 2024-10-23 08:23 | PROGRESS NOTE ---
Progress Note Dictate Providers to CC ~ Subjective Subjective: He seems to be tolerating Augmentin a bit better than the other oral antibiotics. He walked a short distance yesterday. Appetite not great but trying to eat breakfast. Objective Objective: GENERAL: Pleasant elderly male who looks stable LUNGS: Decreased breath sounds on the left side and his left chest is bandaged. HEART: Regular rate and rhythm. ABDOMEN: Soft and nondistended with a gastrostomy tube Lab Results: 10/22/24 0739 10/22/24 0739 Problem\Assessment\Plan Additional Plan Complicated infection involving left hemithorax. He was felt to have a pneumonia with parapneumonic effusion/empyema. He had undergone drainage, but there was concern for a trapped lung. Following initial thoracotomy and decortication, he went on to develop significant abscess at left chest wall, likely communicating with the pleural space s/p drainage E. coli had been identified in the past, and he has been aggressively treated with meropenem. Heavy growth of Bacteroides on current culture is surprising given use of meropenem (may have simply been a drainage issue). He now has an Eloesser flap to allow for persistent drainage. Continue oral Augmentin for now Zofran prior to oral antibiotics He may need to go back to IV therapy for a period of time if he cannot tolerate oral therapy Duration of therapy unclear at this point Ambulate and hopefully make it back home soon CHANELL SAMUEL MD October 23, 2024 08:23
[2024-10-23 08:30] LABS: BASOPHILS % (AUTO) 0.4 % (0-1); EOSINOPHILS # (AUTO) 0.1 X10'3 (0-0.9); EOSINOPHILS % (AUTO) 1.1 % (0-6); HEMATOCRIT 33.6 % (42.0-52.0); HEMOGLOBIN 11.2 g/dl (14.0-17.9); LYMPHOCYTES # (AUTO) 1.1 X10'3 (1.1-4.8); LYMPHOCYTES % (AUTO) 13.4 % (21-51); MEAN CORPUSCULAR HEMOGLOBIN 30.7 PG (27.0-31.0); MEAN CORPUSCULAR HGB CONC 33.5 g/dL (33.0-36.5); MEAN CORPUSCULAR VOLUME 91.5 FL (78-98); MONOCYTES # (AUTO) 0.7 X10'3 (0-0.9); MONOCYTES % (AUTO) 8.4 % (2-12); NEUTROPHILS # (AUTO) 6.1 X10'3 (1.8-7.7); NEUTROPHILS % (AUTO) 76.7 % (42-75); PLATELET COUNT 468 X10'3 (140-440); RED BLOOD COUNT 3.67 X10'6 (4.70-6.10); RED CELL DISTRIBUTION WIDTH 17.9 % (11.5-14.5); WHITE BLOOD COUNT 7.9 X10'3 (4.5-11.0)
[2024-10-23 08:46] LABS: ALANINE AMINOTRANSFERASE 22 U/L (12-78); ALBUMIN 2.1 G/DL (3.4-5.0); ALBUMIN/GLOBULIN RATIO 0.4 (1.1-1.5); ALKALINE PHOSPHATASE 81 IU/L (46-116); ANION GAP 6 (8-16); ASPARTATE AMINO TRANSFERASE 27 U/L (10-37); BILIRUBIN,TOTAL 0.3 MG/DL (0.1-1.0); BLOOD UREA NITROGEN 9 MG/DL (7-18); BUN/CREATININE RATIO 9.8 (10.0-20.0); CALCIUM 9.1 MG/DL (8.5-10.1); CHLORIDE 99 MMOL/L (99-107); CREATININE 0.92 MG/DL (0.60-1.10); GLUCOSE 96 MG/DL (70-104); MAGNESIUM 1.4 MG/DL (1.5-2.4); POTASSIUM 4.2 MMOL/L (3.5-5.1); SODIUM 134 MMOL/L (135-145); TOTAL PROTEIN 7.2 G/DL (6.4-8.2); eCRCL 77 ML/MIN; eGFR 80 ML/MIN
--- NOTE | 2024-10-23 13:14 | PROGRESS NOTE- Residence ---
Progress Note - Resident Providers to CC Resident Creating Document: JOSE L FREYSTEVETANI GONZALEZ CC: RAMIRO ZHOU MD ~ Antibiotic Timeout Antibiotic Ordered?: Yes Subjective Patient was seen at bedside today. He is doing well, denies any significant abdominal pain today. He is concerned regarding his PEG tube. He seems more inclined towards going home versus rehab Objective Vital Signs Date Time Temp Pulse Resp B/P (MAP) Pulse Ox O2 Delivery O2 Flow Rate FiO2 10/23/24 10:58 97.2 87 14 102/54 (70) 97 Nasal Cannula 3.0 10/22/24 20:13 32 Result Diagram: 10/23/24 0726 10/23/24 0726 General: Elderly frail man, awake, alert oriented to place, time, and person HEENT: No pallor present, no icterus, moist mucous membranes Neck: No masses and tenderness Resp: Unlabored. Absent breath sounds on the left. Normal breath sounds on the right Chest: Left hemothorax covered with clean dressing Heart: Regular Rate and rhythm, normal S1 and S2 without murmur, rub or gallop Abdomen: Peg tube in place, Soft and non tender no organomegaly, no guarding and rigidity, bowel sounds present Neuro: No weakness in the upper and lower limb muscles, power of the muscles 4/5 bilateral upper and lower muscles, knee reflex present bilaterally. Cranial nerves intact Extremities: No cyanosis,clubbing or edema Skin: Warm and Dry. No lesions Assessment Assessment 74-year-old male was transferred for [facility] in view of chest wall abscess. Patient is admitted for the management and evaluation of recurrent left-sided empyema with chest wall extension. 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 Nava on 10/11/2024- * Wide debridement of left chest wall. * Drainage of chest wall abscess. * Eloesser flap. * Wound VAC placement. (her wound VAC removed posteriorly) * Dressing change x2 Completed vancomycin and Zosyn Completed 6 days of Flagyl and Bactrim, DCd per Dr. Garcia as patient was not tolerating well Dr. Garcia started a trial of Augmentin, which she seems to be tolerating well. Dr. Garcia we will confirm duration of treatment in the morning Patient will be discharged in a.m. Abdominal pain, likely side effect from antibiotics Constipation, improved Abdominal pain likely from constipation, as bowel movements yesterday were not large Will repeat urinalysis, although unlikely source in view of patient being on Bactrim Continue milk of magnesia p.r.n. Continue prune juice p.r.n. Normocytic normochromic anemia Hemoglobin stable Continue monitoring H&H Acute respiratory failure postop- to be expected with thoracic surgery and not a complication of surgery, resolved Patient is at baseline oxygen 1-2 L via nasal cannula BPH Continue doxazosin and finasteride Depression Continue bupropion Code Status: Full code PT: Yes Prognosis: Guarded Disposition: Continue care in PCU. Patient can be discharged to rehab tomorrow, cleared for discharge to rehab by Dr. Nava. Continue recommendations per ID. Anticipated discharge in a.m. Steve Frey MD Internal Medicine Resident PGY-1 Date of Service: October 23, 2024 Billing Provider: RAMIRO ZHOU MD Common Visit Codes: [id number] INP/OBS CARE(MOD) TSEVE ROY October 23, 2024 13:14 RAMIRO ZHOU MD October 25, 2024 14:17
[2024-10-23] MEDS ORDERED: magnesium sulf-water 2g/50mL 50 ML IV PRN (15:55)
[2024-10-23] MEDS ORDERED: magnesium sulf-water 4G/100mL 100 ML IV PRN (15:55)
[2024-10-23] MEDS: magnesium Cl slow-release 64mg tablet PO PRN (23:06)
[2024-10-24] MEDS: ondansetron 4mg rapidly disintigrating tab PO ONE (03:42)
[2024-10-24 04:31] LABS: MAGNESIUM 1.6 MG/DL (1.5-2.4)
[2024-10-24 06:42] VITALS: BP 115/70; PULSE 89; RESP 14; TEMP 97.9; O2SAT 97
[2024-10-24 07:55] VITALS: RESP 13; O2SAT 97
[2024-10-24 08:49] LABS: ALBUMIN 2.2 G/DL (3.4-5.0); ANION GAP 10 (8-16); BASOPHILS # (AUTO) 0.1 X10'3 (0-0.2); BASOPHILS % (AUTO) 0.8 % (0-1); BLOOD UREA NITROGEN 11 MG/DL (7-18); BUN/CREATININE RATIO 11.2 (10.0-20.0); CALCIUM 9.4 MG/DL (8.5-10.1); CHLORIDE 97 MMOL/L (99-107); CREATININE 0.98 MG/DL (0.60-1.10); EOSINOPHILS # (AUTO) 0.1 X10'3 (0-0.9); EOSINOPHILS % (AUTO) 1.5 % (0-6); GLUCOSE 96 MG/DL (70-104); HEMATOCRIT 35.3 % (42.0-52.0); HEMOGLOBIN 11.6 g/dl (14.0-17.9); LYMPHOCYTES # (AUTO) 1.3 X10'3 (1.1-4.8); LYMPHOCYTES % (AUTO) 12.5 % (21-51); MEAN CORPUSCULAR HEMOGLOBIN 30.2 PG (27.0-31.0); MEAN CORPUSCULAR HGB CONC 32.8 g/dL (33.0-36.5); MEAN CORPUSCULAR VOLUME 92.2 FL (78-98); MEAN PLATELET VOLUME 7.6 FL (7.4-10.4); MONOCYTES # (AUTO) 0.9 X10'3 (0-0.9); MONOCYTES % (AUTO) 8.9 % (2-12); NEUTROPHILS # (AUTO) 7.8 X10'3 (1.8-7.7); NEUTROPHILS % (AUTO) 76.3 % (42-75); PLATELET COUNT 486 X10'3 (140-440); POTASSIUM 4.4 MMOL/L (3.5-5.1); RED BLOOD COUNT 3.83 X10'6 (4.70-6.10); RED CELL DISTRIBUTION WIDTH 17.5 % (11.5-14.5); SODIUM 135 MMOL/L (135-145); TOTAL CARBON DIOXIDE 28.5 MMOL/L (24-32); WHITE BLOOD COUNT 10.2 X10'3 (4.5-11.0); eCRCL 73 ML/MIN; eGFR 75 ML/MIN
--- NOTE | 2024-10-24 09:47 | PROGRESS NOTE ---
Progress Note Dictate Providers to CC ~ Subjective Subjective: He states that he is continuing to tolerate Augmentin. He is planning to go home today. He did hire some help for home. He does not want to go to rehab. Objective Objective: GENERAL: Pleasant elderly male who looks stable LUNGS: Decreased breath sounds on the left side and his left chest is bandaged. HEART: Regular rate and rhythm. ABDOMEN: Soft and nondistended with a gastrostomy tube Lab Results: 10/24/24 0400 10/24/24 0400 Problem\Assessment\Plan Additional Plan Complicated infection involving left hemithorax. He was felt to have a pneumonia with parapneumonic effusion/empyema. He had undergone drainage, but there was concern for a trapped lung. Following initial thoracotomy and decortication, he went on to develop significant abscess at left chest wall, likely communicating with the pleural space s/p drainage E. coli had been identified in the past, and he has been aggressively treated with meropenem. Heavy growth of Bacteroides on current culture is surprising given use of meropenem (may have simply been a drainage issue). He now has an Eloesser flap to allow for persistent drainage. Continue oral Augmentin - please provide him with at least 2 more weeks Zofran prior to oral antibiotics - please provide him with at least 2 more weeks He can follow-up with me in the outpatient setting with f/u imaging Follow-up with Dr. Nava as well CHANELL SAMUEL MD October 24, 2024 09:47
[2024-10-24 10:34] VITALS: PULSE 62; RESP 18; O2SAT 96
[2024-10-24 11:00] VITALS: BP 99/59; PULSE 92; RESP 17; TEMP 97.8; O2SAT 95
[2024-10-24 12:30] VITALS: RESP 16
[2024-10-24] MEDS ORDERED: LACT1CAP26 PO (12:54)
[2024-10-24] MEDS ORDERED: AMOX-580 PO (12:54)
[2024-10-24] MEDS ORDERED: ONDA-243 PO (12:54)
--- NOTE | 2024-10-24 17:21 | DISCHARGE SUMMARY-Residence ---
Discharge Summary Providers to CC Resident Creating Document: SHELLEY ORY CC: RAMIRO ZHOU MD ~ Discharge Summary Admission Diagnosis: s/p elloesser flap Hospital Course DATE OF ADMISSION: 10/11/2024 DATE OF DISCHARGE: 10/24/2024 Discharge Diagnosis\Comment: Recurrent left-sided empyema with chest wall extension Status post wide debridement of left chest wall/Drainage of chest wall abscess/Eloesser flap with Dr. Nava on 10/11/2024- Abdominal pain, likely side effect from antibiotics, resolved Constipation, improved Normocytic normochromic anemia Acute respiratory failure postop- to be expected with thoracic surgery and not a complication of surgery, resolved BPH Depression Operations\Procedures: Wide debridement of left chest wall/Drainage of chest wall abscess/Eloesser flap with Dr. Nava on 10/11/2024 Consultants: Dr Nava (surgery) Dr Garcia (ID) Complications: None Condition on DC: Stable New Medications: Lactobacillus Rhamnosus (Culturelle) 10 Billion Cell Capsule 1 CAP PO DAILY for 30 Days, #30 CAP 0 Refills ONDANSETRON ODT 4mg tablet (Ondansetron Odt) 4 Mg Tab.rapdis 1 TAB PO Q6H PRN PRN for nausea/vomiting for 4 Days, #16 TAB 0 Refills Amox Tr/Potassium Clavulanate 875/125 MG (Augmentin 875/125 MG) 875 Mg-125 Mg Tablet 1 TAB PO BID@0830,1730 for 14 Days, #56 TAB Continued Medications: Albuterol Sulfate (Proair Digihaler) 90 Mcg Aer.pw.bas 2 PUFFS IH Q6H PRN for SOB or wheezing Bupropion HCl (Bupropion Xl) 300 Mg Tab.er.24h 1 TAB PO DAILY Docusate Sodium (Colace) 100 Mg Capsule 1 CAP PO Q12H for 30 Days, #60 CAP 0 Refills Doxazosin Mesylate (Doxazosin Mesylate) 4 Mg Tablet 1 TAB PO DAILY Finasteride (PROSCAR tablet) 5 Mg Tablet 5 MG PO DAILY, TAB Hydrocodone Bit/Acetaminophen (Hydrocodon-Acetaminophn 10-325 tablet) 10mg- 325mg Tablet 1 TAB PO Q4H PRN for pain for 5 Days, #20 TAB Hydromorphone HCl/Pf (Dilaudid 0.5 mg/0.5 ml Syringe) 0.5 Mg/0.5 Ml Syringe 0.5 .SEE ORDER Q4H Lorazepam (Ativan) 0.5 Mg Tablet 1 TAB PO Q12H PRN PRN for anxiety for 30 Days, #60 TAB 0 Refills Melatonin (Melatonin) 3 Mg Capsule 1 CAP PO HS for 30 Days, #30 CAP 0 Refills Multivitamin with Folic Acid (Thera Tablet) 400 Mcg Tablet 1 EACH PO DAILY, #60 TAB Nystatin (Nystatin) 100,000 Unit/Gram Cream.gm. 1 APPLIC TOP BID for 5 Days, #15 GM 0 Refills apply to affected area(s) Omeprazole (Prilosec) 40 Mg Capsule 1 CAP PO DAILY Polyethylene Glycol 3350 (Miralax) 17 Gram/Dose Powder 17 GM PO DAILY for constipation, #255 GM 0 Refills dissolve in water Testosterone (Testosterone) 10 Mg (2%) Gel..assembler movement 1 PUMP TP QAM Thiamine Mononitrate (Vitamin B-1) 100 Mg Tablet 1 TAB PO DAILY for 30 Days, #30 TAB 0 Refills Discharge Summary: Patient was admitted with the following HPI: The patient is a 74-year-old male with past medical history of hypertension, left lung pneumonia and parapneumonic effusion s/p thoracotomy with decortication, was transferred from [facility] for chest wall abscess. The patient was initially admitted in August of this year for community-acquired pneumonia and left-sided parapneumonic effusion, underwent chest tube placement without full evacuation and re-expansion by Dr. Benton. He also underwent bronchoscopy which did not show much mucus plugging. He was then discharged to [facility] on 08/29/2024 with chest tube and IV Zosyn. He came back to ED on 09/06/2024 after the chest tube was not draining and chest x-ray showing white out lung. In the at admission, he underwent thoracotomy with decortication of his left trapped lung on 09/08/2024. His chest tube was removed on 09/20/2024 and he was discharged to [facility] on 09/23/2024. The patient noticed a quarter sized abscess in his left axilla 4-5 days back which was tender to touch. It increased in size and is now covering all of his axilla and anterior chest wall till mid clavicular line. Reports pain of the abscess even with breathing. Denies fevers, chest pain, palpitations, shortness of breath, abdominal pain, vomiting, diarrhea, constipation, burning micturition. He reports nausea and mild cough. He does not report any pus discharge from the abscess. Hospital course: Patient was admitted with diagnosis of left empyema extending to chest wall. Patient was started on IV vancomycin, and on 10/11/2024 patient underwent Wide debridement of left chest wall/Drainage of chest wall abscess/Eloesser flap by Dr. Nava with subsequent dressing change on 10/15/2024 and 10/17/2024. Cultures grew Bacteroides fragilis, reason why Dr. Garcia (ID) was consulted, who decided to initially change patient to oral Flagyl and Bactrim, however, due to poor tolerance patient was posteriorly changed to p.o. Augmentin. There was a consideration of returning to IV antibiotics, however, this was not necessary. Initially, plan was for patient to go to rehab, but due to satisfactory progress with PT and patient's desires to go home, it was decided to change the discharge plan to home with home health. Patient completed a total of 13 days of antibi otics, and Dr. Garcia recommended continuing for 2 more weeks. Patient will also be referred to wound care. In addition, he will follow up with Dr. Nava on an outpatient basis, and Dr. Shah for removal of PEG tube which was placed on 09/15/2024. In view of satisfactory hospital course, and good response to antibiotics, patient will be discharged home today. Laboratory Tests Test 10/23/24 07:26 10/24/24 04:00 White Blood Count 7.9 X10'3 10.2 X10'3 Red Blood Count 3.67 X10'6 3.83 X10'6 Hemoglobin 11.2 g/dl 11.6 g/dl Hematocrit 33.6 % 35.3 % Mean Corpuscular Volume 91.5 FL 92.2 FL Mean Corpuscular Hemoglobin 30.7 PG 30.2 PG Mean Corpuscular Hemoglobin Concent 33.5 g/dL 32.8 g/dL Red Cell Distribution Width 17.9 % 17.5 % Platelet Count 468 X10'3 486 X10'3 Mean Platelet Volume 7.0 FL 7.6 FL Neutrophils (%) (Auto) 76.7 % 76.3 % Lymphocytes (%) (Auto) 13.4 % 12.5 % Monocytes (%) (Auto) 8.4 % 8.9 % Eosinophils (%) (Auto) 1.1 % 1.5 % Basophils (%) (Auto) 0.4 % 0.8 % Neutrophils # (Auto) 6.1 X10'3 7.8 X10'3 Lymphocytes # (Auto) 1.1 X10'3 1.3 X10'3 Monocytes # (Auto) 0.7 X10'3 0.9 X10'3 Eosinophils # (Auto) 0.1 X10'3 0.1 X10'3 Basophils # (Auto) 0.0 X10'3 0.1 X10'3 CBC Comment Sodium Level 134 MMOL/L 135 MMOL/L Potassium Level 4.2 MMOL/L 4.4 MMOL/L Chloride Level 99 MMOL/L 97 MMOL/L Carbon Dioxide Level 29.0 MMOL/L 28.5 MMOL/L Anion Gap 6 10 Blood Urea Nitrogen 9 MG/DL 11 MG/DL Creatinine 0.92 MG/DL 0.98 MG/DL Estimated GFR/1.73 m2 80 ML/MIN 75 ML/MIN BUN/Creatinine Ratio 9.8 11.2 Glucose Level 96 MG/DL 96 MG/DL Calcium Level 9.1 MG/DL 9.4 MG/DL Magnesium Level 1.4 MG/DL 1.6 MG/DL Total Bilirubin 0.3 MG/DL Aspartate Amino Transf (AST/SGOT) 27 U/L Alanine Aminotransferase (ALT/SGPT) 22 U/L Alkaline Phosphatase 81 IU/L Total Protein 7.2 G/DL Albumin 2.1 G/DL 2.2 G/DL Globulin 5.1 G/DL Albumin/Globulin Ratio 0.4 Chemistry Comments Imaging: Chest CT: Large left-sided hemothorax with extension to a large soft tissue abscess within the left chest wall and axillary soft tissues. Areas of peripheral wall thickening. Underlying empyema cannot be excluded. Airspace consolidation at the left upper and no lobes could be consistent with compressive atelectasis. Chest x-ray on admission: Near-complete opacification of the left hemithorax which may reflect a mixture of pneumonia, atelectasis, and pleural fluid. Follow up chest x-ray on 10/17/2024: Left pleural effusion. Discharge physical exam: Vital Signs Date Time Temp Pulse Resp B/P (MAP) Pulse Ox O2 Delivery O2 Flow Rate FiO2 10/24/24 12:30 16 10/24/24 11:00 97.8 92 99/59 (72) 95 Room Air 10/24/24 10:34 1 24 General: Elderly frail man, awake, alert oriented to place, time, and person HEENT: No pallor present, no icterus, moist mucous membranes Neck: No masses and tenderness Resp: Unlabored. Absent breath sounds on the left. Normal breath sounds on the right Chest: Left hemothorax covered with clean dressing Heart: Regular Rate and rhythm, normal S1 and S2 without murmur, rub or gallop Abdomen: Peg tube in place, Soft and non tender no organomegaly, no guarding and rigidity, bowel sounds present Neuro: No weakness in the upper and lower limb muscles, power of the muscles 4/5 bilateral upper and lower muscles, knee reflex present bilaterally. Cranial nerves intact Extremities: No cyanosis,clubbing or edema Skin: Warm and Dry. No lesions Patient will be discharged with the following recommendations: YOU HAVE AN APPOINTMENT AT [facility] ON 10/25/24 AT 8 AM. YOU NEED TO ARRIVE AT [facility] AT 7:30 AM. BRING INSURANCE CARDS, PICTURE ID AND FILLED OUT NEW PATIENT PACKET. CLINIC'S NUMBER IS [phone]. Please make an appointment with Dr. Shah for PEG tube removal in 2 weeks. [phone] Please make appointment with Dr. Nava for 1 week for wound care. [phone] make appointment with [address]. Garcia, Infectious Disease for 2 weeks. [phone] SHAH IN 1 WEEK REGARDING REMOVAL OF G-TUBE. CALL HIS OFFICE FOR AN APPOINTMENT: [phone]. Complete two weeks of your antibiotics Follow up with your PCP within one week Please return to the ED if any concerning symptoms *Problems/Diagnosis: (1) Chest wall abscess Status: Acute (2) Empyema of left pleural space Status: Acute Total Time Spent on D/C: > 30 Minutes Date of Service: October 24, 2024 Billing Provider: RAMIRO ZHOU MD Common Visit Codes: [id number] DISCH DAY >30min SHELLEY ROY October 24, 2024 16:59 RAMIRO ZHOU MD October 25, 2024 14:17
== END 2024-10-24 16:39 | disposition home health service (06) | DRG 579 ==
LOC: ER 17:53 → ED HOLD 22:36 → ORTHO 4S 10-11 00:15 → CICU 2S 10-11 16:40 → PACU 10-15 08:50 → PCU 3S 10-15 10:10 → SUR 3N 10-23 15:26
PROVIDERS: ADMIT Surgery; ATTEND Family Medicine
PROC: 0W9B00Z Drainage of Left Pleural Cavity with Drainage Device, Open Approach (ICD-10-PCS; 2024-10-11)
PROC: 0JR607Z Replacement of Chest Subcutaneous Tissue and Fascia with Autologous Tissue Substitute, Open Approach (ICD-10-PCS; 2024-10-11)
PROC: 02HV33Z Insertion of Infusion Device into Superior Vena Cava, Percutaneous Approach (ICD-10-PCS; 2024-10-11)
PROC: B548ZZA Ultrasonography of Superior Vena Cava, Guidance (ICD-10-PCS; 2024-10-11)
PROC: 0KBJ0ZZ Excision of Left Thorax Muscle, Open Approach (ICD-10-PCS; principal; 2024-10-11 13:50)
PROC: 2W4 Placement, Anatomical Regions, Packing (ICD-10-PCS; 2024-10-15)
PROC: 2W4 Placement, Anatomical Regions, Packing (ICD-10-PCS; 2024-10-17)
DX: L02.213 Cutaneous abscess of chest wall (principal); J18.9 Pneumonia, unspecified organism; J86.9 Pyothorax without fistula; J96.00 Acute respiratory failure, unspecified whether with hypoxia or hypercapnia; J90 Pleural effusion, not elsewhere classified; L03.313 Cellulitis of chest wall; D64.9 Anemia, unspecified; I10 Essential (primary) hypertension; N40.0 Benign prostatic hyperplasia without lower urinary tract symptoms; F32.A Depression, unspecified; Z88.1 Allergy status to other antibiotic agents; Z88.8 Allergy status to other drugs, medicaments and biological substances; Z79.899 Other long term (current) drug therapy; Z90.49 Acquired absence of other specified parts of digestive tract; Z85.828 Personal history of other malignant neoplasm of skin; I25.2 Old myocardial infarction
CPT/HCPCS: 36415; 36600; 71045; 71260; 80047; 80048; 80053; 80202; 81001; 81003; 82803; 82948; 83605; 83735; 83880; 84145; 84484; 85018; 85025; 85651; 86140; 86885; 86900; 86901; 86920; 87040; 87070; 87075; 87076; 87081; 87185; 93005; 94002; 94003; 94664; 94760; 96365; 96367; 97110; 97116; 97161; 97164; 97530; 99285; A4215; A4333; A4421; A4615; A4618; A4628; A6196; A6213; A6253; A6258; A6402; A6446; A6449; A6550; A7000; C1758; C9250; G0378; J1100; J1644; J2003; J2185; J2250; J2405; J2543; J2704; J3010; J3370; J3372; J3475; J3480; J3490; J7030; J7040; J7050; J7120; P9045; Q9967

== ENCOUNTER 2024-12-24 09:31 | Outpatient (CLI) | payer MEDICARE, BC ==
[~2024-12-24 09:31] MED LIST changes: +AMOX-580 PO; +DOCU-148 PO; +HYDR-3972 PO; +HYDR0.5S2; +LACT1CAP26 PO; +LORA-268 PO; +MELA3CAP2 PO; +NYST15CR TOP; +ONDA-243 PO; +iohexol 300mg/ml 100ml inj. ONE
[2024-12-24 11:01] LABS: CREATININE 1.07 MG/DL (0.60-1.10); TOTAL CARBON DIOXIDE 31.2 MMOL/L (24-32); eGFR 68 ML/MIN
--- NOTE | 2024-12-25 05:11 | RADIOLOGY REPORT ---
Procedure: CT CT CHEST W/ IV CONTRAST 12/24/2024 11:31 AM History: PYOTHORAX WITHOUT FISTULA Comparison: 10/17/2024 Technique: After the uneventful administration of contrast intravenously, CT imaging was performed th rough the chest. Coronal and sagittal reformations were performed by the technologist. 3D image postprocessing was performed on a dedicated workstation and images were used for interpretat ion and reporting. Radiation Dose : CT Dose: CTDI volume is 18.7 mGy. Dose-length product is 737 mGy*cm Findings: Lower neck: Normal thyroid. Lungs: 0.5 cm right upper lobe subpleural nodule, image 52. Left lung volume loss. Left lower lobe atelectasis/scarring. Heart/Vascular Structures: Cardiomegaly. Coronary artery calcifications. Vascular calcifications of t he aorta. Lymph Nodes: No adenopathy Pleura: Small left pleural effusion. Fistulous communication in the left lateral lower hemithorax ext ending to the skin. Musculoskeletal: No acute osseous abnormality. Degenerative changes of the spine. Exaggerated kyphos is. Soft tissues: Normal. Upper abdomen: Left midpole cyst measures 2.5 cm. 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 Small left pleural effusion. Left lung volume loss and left lower lobe scarring/atelectasis. Indeterminate, Probably benign 0.5 cm subpleural nodule in the right upper lobe, image 52.
== END 2024-12-24 23:59 | disposition home or self-care (01) ==
LOC: RAD 09:31
PROVIDERS: ATTEND Surgery
DX: Z01.818 Encounter for other preprocedural examination (principal); J86.9 Pyothorax without fistula; I25.10 Atherosclerotic heart disease of native coronary artery without angina pectoris; J90 Pleural effusion, not elsewhere classified; J86.0 Pyothorax with fistula; R91.1 Solitary pulmonary nodule; J98.11 Atelectasis; I51.7 Cardiomegaly
CPT/HCPCS: 36415; 71260; 80048; Q9967